=== PATIENT | female | born 1960 | race African-American/Black ===

== ENCOUNTER 2017-08-01 15:34 | Inpatient (IN) | payer OTHER ==
--- NOTE | 2017-08-01 19:48 | HP ---
COWS - Scale Resting Pulse: 0= [place] 80 or Below Sweatin= Chills/Flushing Restless Observation: 3= Extraneous Movement Pupil Size: 0= Normal to Room Light Bone or Joint Aches: 2= Severe Diffuse Aches Runny Nose/ Eye Tearin= Nasal Congestion GI Upset > 30mins: 3= Vomiting/Diarrhea Tremor Observation: 2= Slight Tremor Visible Yawning Observation: 0= None Anxiety or Irritability: 2=Irritable/Anxious Goose Flesh Skin: 0=Smooth Skin COWS Score: 14 CIWA Score - CIWA Score Nausea/Vomitin-Mild Nausea/No Vomiting Muscle Tremors: 4-Moderate,w/Arms Extend Anxiety: 4-Mod. Anxious/Guarded Agitation: 4-Moderately Restless Paroxysmal Sweats: 1-Minimal Palms Moist Orientation: 0-Oriented Tacttile Disturbances: 0-None Auditory Disturbances: 0-None Visual Disturbances: 0-None Headache: 0-None Present CIWA-Ar Total Score: 14 Admission ROS BHS - HPI Chief Complaint: withdrawal sx Allergies/Adverse Reactions: Allergies Allergy/AdvReac Type Severity Reaction Status Date / Time zolpidem tartrate Allergy Difficulty Verified 08/01/17 19:47 [From Ambien] Breathing History of Present Illness: 57 years old female with long history of heroin cocaine alcohol dependence has asthma copd positive ppd hypertension and bipolar ii is admitted to detox Exam Limitations: No Limitations - Ebola screening Have you traveled outside of the country in the last 21 days: No Have you had contact with anyone from an Ebola affected area: No Have you been sick,other than usual withdrawal symptoms: No Do you have a fever: No - Review of Systems Constitutional: Changes in sleep, Weight Stable EENT: reports: Dental Problems (upper + lower) Respiratory: reports: SOB with Exertion, Productive cough (clear) Cardiac: reports: No Symptoms Reported GI: reports: Nausea, Poor Fluid Intake, Vomiting, Abdominal cramping : reports: No Symptoms Reported Musculoskeletal: reports: Back Pain, Joint Pain, Joint Swelling, Muscle Pain, Neck Pain Integumentary: reports: No Symptoms Reported Neuro: reports: Tremors Endocrine: reports: No Symptoms Reported Hematology: reports: No Symptoms Reported Psychiatric: reports: Judgement Intact, Orientated x3, Anxious, Depressed Other Systems: Reviewed and Negative Patient History - Patient Medical History Hx Anemia: No Hx Asthma: Yes Hx Chronic Obstructive Pulmonary Disease (COPD): Yes Hx Cancer: No Hx Cardiac Disorders: No Hx Congestive Heart Failure: No Hx Hypertension: Yes Hx Hypercholesterolemia: Yes Hx Pacemaker: No HX Cerebrovascular Accident: No Hx Seizures: No Hx Dementia: No Hx Diabetes: No Hx Gastrointestinal Disorders: No Hx Liver Disease: No Hx Genitourinary Disorders: No Hx Sexually Transmitted Disorders: No Hx Renal Disease (ESRD): No Hx Thyroid Disease: No Hx Human Immunodeficiency Virus (HIV): No Hx Hepatitis C: No Hx Depression: Yes Hx Suicide Attempt: No Hx Bipolar Disorder: No Hx Schizophrenia: Yes (last dose 01/2017) - Patient Surgical History Past Surgical History: Yes Hx Neurologic Surgery: No Hx Cataract Extraction: No Hx Cardiac Surgery: No Hx Lung Surgery: No Hx Breast Surgery: No Hx Breast Biopsy: No Hx Abdominal Surgery: No Hx Appendectomy: No Hx Cholecystectomy: No Hx Genitourinary Surgery: No Hx Section: No Hx Orthopedic Surgery: No Other Surgical History: Dilatation & Curettage 01/2014 Anesthesia Reaction: No - PPD History Previous Implant?: Yes Documented Results: Positive w/proof Implanted On Prior [facility] Admission?: No PPD to be Administered?: No - Reproductive History Patient is a Female of Child Bearing Age (11 -55 yrs old): Yes Last Menstrual Period: 07/19/09 Patient : No - Smoking Cessation Smoking history: Former smoker Have you smoked in the past 12 months: No Aproximately how many cigarettes per day: 0 If you are a former smoker, when did you quit?: in 2013 Hx Chewing Tobacco Use: No Initiated information on smoking cessation: No - Substance & Tx. History Hx Alcohol Use: Yes Hx Substance Use: Yes Substance Use Type: Alcohol, Cocaine, Heroin Hx Substance Use Treatment: Yes (04/2017) - Substances Abused Alcohol Route: Oral Frequency: Daily Amount used: 3 pints E+ J Age of first use: 18 Date of Last Use: 08/01/17 Heroin Route: Inhalation Frequency: Daily Amount used: 8 bags Age of first use: 42 Date of Last Use: 08/01/17 Family Disease History - Family Disease History Family Disease History: Diabetes: Mother (chf ), Brother (heroin dependencies 2 brothers ), Heart Disease: Mother, [place]: Father ( lungdeceased), Respiratory: Mother, Brother, Other: Brother, Sister (no sister) [facility] - Vital Signs Vital Signs: Vital Signs - 24 hr 08/01/17 17:10 Temperature 97.7 F Pulse Rate 74 Respiratory 18 Rate Blood Pressure 152/83 - Physical General Appearance: Yes: Appropriately Dressed, Mild Distress, Obese, Tremorous , Irritable, Sweating, Anxious HEENTM: Yes: Hearing grossly Normal, Normal ENT Inspection, Normocephalic, Normal Voice Respiratory: Yes: Chest Non-Tender, No Respiratory Distress, No Accessory Muscle Use, Rhonchi, Wheezing, Hyperresonant Neck: Yes: Supple, Trachea in good position Breast: Yes: Breasts Symetrical Cardiology: Yes: Regular Rhythm, Regular Rate, S1, S2 Abdominal: Yes: Non Tender, Soft, Decreased BS Genitourinary: Yes: Within Normal Limits Back: Yes: Normal Inspection Musculoskeletal: Yes: full range of Motion, Gait Steady, Back pain, Muscle Pain Extremities: Yes: Normal Inspection, Normal Range of Motion, Non-Tender, Tremors Neurological: Yes: Fully Oriented, Alert, Motor Strength 5/5, Normal Response, Depressed Affect Integumentary: Yes: Warm Lymphatic: Yes: Within Normal Limits - Diagnostic (1) Alcohol dependence with uncomplicated withdrawal Current Visit: Yes Status: Acute (2) Opioid dependence with withdrawal Current Visit: Yes Status: Acute (3) Schizoaffective disorder, bipolar type Current Visit: Yes Status: Suspected (4) Asthma Current Visit: Yes Status: Chronic Qualifiers: Asthma severity: severe Asthma persistence: persistent Asthma complication type: uncomplicated Qualified Code(s): J45.50 - Severe persistent asthma, uncomplicated Comment: . (5) COPD (chronic obstructive pulmonary disease) with emphysema Current Visit: Yes Status: Chronic Qualifiers: Emphysema type: panlobular Qualified Code(s): J43.1 - Panlobular emphysema Comment: . (6) Nicotine dependence Current Visit: Yes Status: Acute Qualifiers: Nicotine product type: cigarettes Substance use status: in withdrawal Qualified Code(s): F17.213 - Nicotine dependence, cigarettes, with withdrawal Comment: . Cleared for Admission [facility] - [facility]ox or [facility]hab [facility] Level of Care: Medically Managed Detox Regimen/Protocol: Methadone/Librium [facility] Breath Alcohol Content Breath Alcohol Content: 0 Urine Pregancy Test - Result Urine Test Results: Negative- NO Line Present Urine Drug Screen - Results Drug Screen Negative: No Urine Drug Screen Results: MANDEEP-Cocaine, OPI-Opiates
[2017-08-01] MEDS ORDERED: MAGNESIUM HYDROX 2400MG/30ML ORAL SUSPENSION 30 ML CUP PO PRN (20:01)
[2017-08-01] MEDS ORDERED: MAG HYDROX/AL HYDROX/SIMETH 30 ML UNIT-DOSE CUP PO PRN (20:01)
[2017-08-01] MEDS ORDERED: ACETAMINOPHEN 325 MG TABLET (FP) PO PRN (20:01)
[2017-08-01] MEDS ORDERED: P-EPHED 60MG/TRIPROLIDI 2.5MG TABLET PO PRN (20:01)
[2017-08-01] MEDS ORDERED: guaiFENesin/D-METHORPHAN HB 10 ML UNIT-DOSE CUPS PO PRN (20:01)
[2017-08-01] MEDS ORDERED: MAGNESIUM CITRATE 300 ML BOTTLE PO PRN (20:01)
[2017-08-01] MEDS ORDERED: LOPERAMIDE HCL 2 MG CAPSULE PO PRN (20:01)
[2017-08-01] MEDS ORDERED: MENTHOL/PHENOL 1 EACH UD MM PRN (20:01)
[2017-08-01] MEDS ORDERED: chlordiazePOXIDE HCL 25 MG CAPSULE PO PRN (20:01)
[2017-08-01] MEDS ORDERED: IBUPROFEN 400 MG TABLET (FP) PO PRN (20:01)
[2017-08-01] MEDS ORDERED: METHADONE HCL 10 MG TABLET (FOR DETOX USE ONLY) PO ONE ×2 (20:01→23:00)
[2017-08-01] MEDS ORDERED: ALBUTEROL SO4 18 GM HFA INHALER IH PRN (20:02)
[2017-08-01] MEDS ORDERED: ALBUTEROL SO4 2.5/IPRATROPIUM 0.5 INH SOL 3 ML VIAL.NEB. NEB PRN (20:03)
[2017-08-01] MEDS ORDERED: METHADONE HCL 10 MG TABLET (FOR DETOX USE ONLY) ONE (21:05)
[2017-08-01] MEDS: diphenhydrAMINE HCL 50 MG CAPSULE PO SCH (22:09)
[2017-08-01] MEDS: chlordiazePOXIDE HCL 25 MG CAPSULE PO SCH (22:10)
[2017-08-01] MEDS: MONTELUKAST NA 10 MG TABLET PO SCH (22:10)
[2017-08-01] MEDS: THIAMINE HCL 100 MG TABLET (FP) PO SCH (22:10)
[2017-08-01] MEDS: LOSARTAN 50MG/HCTZ 12.5MG 1 TAB (FP) PO SCH (22:11)
[2017-08-01] MEDS: BUDESONIDE/FORMETEROL FUMARATE 80/4.5 mcg INHALER IH SCH (22:13)
[2017-08-01 23:38] LABS: URINE APPEARANCE SLCLOUDY; URINE BILIRUBIN NEGATIVE (NEGATIVE); URINE BLOOD NEGATIVE (NEGATIVE); URINE COLOR YELLOW; URINE GLUCOSE (UA) NEGATIVE (NEGATIVE); URINE KETONE NEGATIVE (NEGATIVE); URINE NITRITE NEGATIVE (NEGATIVE); URINE PROTEIN NEGATIVE (NEGATIVE); URINE UROBILINOGEN NEGATIVE mg/dL (0.2-1.0)
[2017-08-02] MEDS: chlordiazePOXIDE HCL 25 MG CAPSULE PO SCH ×4 (05:08→22:17)
--- NOTE | 2017-08-02 09:39 | PN ---
[facility] CIWA - CIWA Score Nausea/Vomitin Muscle Tremors: 3 Anxiety: 3 Agitation: 3 Paroxysmal Sweats: 1-Minimal Palms Moist Orientation: 0-Oriented Tacttile Disturbances: 1-Very Mild Itch/Numbness Auditory Disturbances: 1-Very Mild Visual Disturbances: 0-None Headache: 2-Mild CIWA-Ar Total Score: 17 [facility]HS COWS - Scale Resting Pulse: 0= [place] 80 or Below Sweatin= Chills/Flushing Restless Observation: 3= Extraneous Movement Pupil Size: 1= Pupils >than Normal Bone or Joint Aches: 2= Severe Diffuse Aches Runny Nose/ Eye Tearin= Runny Nose/Eyes GI Upset > 30mins: 3= Vomiting/Diarrhea Tremor Observation of Outstretched Hands: 2= Slight Tremor Visible Yawning Observation: 1= 1-2x During Session Anxiety or Irritability: 2=Irritable/Anxious Goose Flesh Skin: 0=Smooth Skin COWS Score: 17 [facility] Progress Note (SOAP) Subjective: alert,irritable,anxious,interrupted sleep,pain in the body and back Objective: 08/02/17 09:37 Vital Signs Temperature 97.5 F L 08/02/17 06:00 Pulse Rate 63 08/02/17 06:00 Respiratory Rate 18 08/02/17 06:00 Blood Pressure 155/79 08/02/17 06:00 O2 Sat by Pulse Oximetry (%) 08/02/17 09:38 ekg nsr, Laboratory Last Values Urine Color Yellow 08/01/17 23:20 Urine Appearance Slcloudy 08/01/17 23:20 Urine pH 6.0 (5.0-8.0) 08/01/17 23:20 Ur Specific [place] 1.020 (1.001-1.035) 08/01/17 23:20 Urine Protein Negative (NEGATIVE) 08/01/17 23:20 Urine Glucose (UA) Negative (NEGATIVE) 08/01/17 23:20 Urine Ketones Negative (NEGATIVE) 08/01/17 23:20 Urine Blood Negative (NEGATIVE) 08/01/17 23:20 Urine Nitrite Negative (NEGATIVE) 08/01/17 23:20 Urine Bilirubin Negative (NEGATIVE) 08/01/17 23:20 Urine Urobilinogen Negative mg/dL (0.2-1.0) 08/01/17 23:20 labs pending Assessment: 08/02/17 09:39 withdrawal symptom Plan: continue detox
[2017-08-02 10:00] LABS: MCH 28.2 pg (25.7-33.7); MCHC 32.6 g/dl (32.0-36.0); MEAN CELL VOLUME 86.5 fl (80-96); MEAN PLT VOLUME 9.1 fl (7.5-11.1); PLATELET COUNT 241 K/MM3 (134-434); RDW 15.2 % (11.6-15.6); WHITE BLOOD COUNT 6.1 K/mm3 (4.0-10.0)
[2017-08-02] MEDS ORDERED: METHADONE HCL 10 MG TABLET (FOR DETOX USE ONLY) PO SCH (10:00)
[2017-08-02] MEDS: PRENATAL VITAMINS W/ FOLIC ACID TABLET (FP) PO SCH (10:14)
[2017-08-02] MEDS: LOSARTAN 50MG/HCTZ 12.5MG 1 TAB (FP) PO SCH (10:14)
[2017-08-02] MEDS: TIOTROPIUM BROMIDE 18 MCG/INH (DEVICE W/ 5 CAPSULES) IH SCH (10:16)
[2017-08-02] MEDS: amLODIPine BESYLATE 10 MG TABLET (FP) PO SCH (10:17)
[2017-08-02] MEDS: BUDESONIDE/FORMETEROL FUMARATE 80/4.5 mcg INHALER IH SCH ×2 (10:17→22:16)
[2017-08-02 10:39] LABS: ALBUMIN 3.1 g/dl (3.4-5.0); ALK PHOS 50 U/L (45-117); ANION GAP 10 (8-16); BILIRUBIN,TOTAL 0.6 mg/dL (0.2-1.0); CALCIUM 8.3 mg/dL (8.5-10.1); CO2 26 mmol/L (21-32); CREATININE 0.7 mg/dL (0.55-1.02); GLUCOSE,RANDOM 91 mg/dL (74-106); SGOT/AST 14 U/L (15-37); SGPT/ALT 15 U/L (12-78); TOT PROT 6.3 g/dl (6.4-8.2)
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
[2017-08-02 11:39] LABS: URINE LEUK ESTERASE Negative (NEGATIVE)
[2017-08-02] MEDS: risperiDONE 1 MG TABLET (FP) PO SCH (22:16)
[2017-08-02] MEDS: diphenhydrAMINE HCL 50 MG CAPSULE PO SCH (22:16)
[2017-08-02] MEDS: BENZTROPINE MESYLATE 1 MG TABLET (FP) PO SCH (22:17)
[2017-08-02] MEDS: THIAMINE HCL 100 MG TABLET (FP) PO SCH (22:17)
[2017-08-02] MEDS: MONTELUKAST NA 10 MG TABLET PO SCH (22:17)
[2017-08-03] MEDS: chlordiazePOXIDE HCL 25 MG CAPSULE PO SCH ×3 (05:10→17:41)
--- NOTE | 2017-08-03 09:50 | PN ---
S CIWA - CIWA Score Nausea/Vomitin Muscle Tremors: 3 Anxiety: 2 Agitation: 2 Paroxysmal Sweats: No Perspiration Orientation: 1-Uncertain about Date Tacttile Disturbances: 1-Very Mild Itch/Numbness Auditory Disturbances: 1-Very Mild Visual Disturbances: 0-None Headache: 2-Mild CIWA-Ar Total Score: 15 [facility] COWS - Scale Resting Pulse: 0= [place] 80 or Below Sweatin= Chills/Flushing Restless Observation: 3= Extraneous Movement Pupil Size: 1= Pupils >than Normal Bone or Joint Aches: 2= Severe Diffuse Aches Runny Nose/ Eye Tearin= Nasal Congestion GI Upset > 30mins: 2= Nausea/Diarrhea Tremor Observation of Outstretched Hands: 2= Slight Tremor Visible Yawning Observation: 1= 1-2x During Session Anxiety or Irritability: 2=Irritable/Anxious Goose Flesh Skin: 0=Smooth Skin COWS Score: 15 S Progress Note (SOAP) Subjective: ALERT,IRRITABLE,ANXIOUS,INTERRUPTED SLEEP,TREMOR,PAIN IN THE BODY Objective: 08/03/17 09:48 Vital Signs Temperature 96.1 F L 08/03/17 06:17 Pulse Rate 76 08/03/17 06:17 Respiratory Rate 18 08/03/17 06:17 Blood Pressure 143/76 08/03/17 06:17 O2 Sat by Pulse Oximetry (%) Laboratory Last Values WBC 6.1 K/mm3 (4.0-10.0) 08/02/17 07:00 RBC 4.42 M/mm3 (3.60-5.2) 08/02/17 07:00 Hgb 12.5 GM/dL (10.7-15.3) D 08/02/17 07:00 Hct 38.2 % (32.4-45.2) 08/02/17 07:00 MCV 86.5 fl (80-96) 08/02/17 07:00 MCH 28.2 pg (25.7-33.7) 08/02/17 07:00 MCHC 32.6 g/dl (32.0-36.0) 08/02/17 07:00 RDW 15.2 % (11.6-15.6) D 08/02/17 07:00 Plt Count 241 K/MM3 (134-434) 08/02/17 07:00 MPV 9.1 fl (7.5-11.1) 08/02/17 07:00 Sodium 142 mmol/L (136-145) 08/02/17 07:00 Potassium 3.6 mmol/L (3.5-5.1) 08/02/17 07:00 Chloride 106 mmol/L (98-107) 08/02/17 07:00 Carbon Dioxide 26 mmol/L (21-32) 08/02/17 07:00 Anion Gap 10 (8-16) 08/02/17 07:00 BUN 10 mg/dL (7-18) D 08/02/17 07:00 Creatinine 0.7 mg/dL (0.55-1.02) 08/02/17 07:00 Creat Clearance w eGFR > 60 (>60) 08/02/17 07:00 Random Glucose 91 mg/dL (74-106) 08/02/17 07:00 Calcium 8.3 mg/dL (8.5-10.1) L 08/02/17 07:00 Total Bilirubin 0.6 mg/dL (0.2-1.0) D 08/02/17 07:00 AST 14 U/L (15-37) L D 08/02/17 07:00 ALT 15 U/L (12-78) D 08/02/17 07:00 Alkaline Phosphatase 50 U/L (45-117) D 08/02/17 07:00 Total Protein 6.3 g/dl (6.4-8.2) L 08/02/17 07:00 Albumin 3.1 g/dl (3.4-5.0) L 08/02/17 07:00 Urine Color Yellow 08/01/17 23:20 Urine Appearance Slcloudy 08/01/17 23:20 Urine pH 6.0 (5.0-8.0) 08/01/17 23:20 Ur Specific [place] 1.020 (1.001-1.035) 08/01/17 23:20 Urine Protein Negative (NEGATIVE) 08/01/17 23:20 Urine Glucose (UA) Negative (NEGATIVE) 08/01/17 23:20 Urine Ketones Negative (NEGATIVE) 08/01/17 23:20 Urine Blood Negative (NEGATIVE) 08/01/17 23:20 Urine Nitrite Negative (NEGATIVE) 08/01/17 23:20 Urine Bilirubin Negative (NEGATIVE) 08/01/17 23:20 Urine Urobilinogen Negative mg/dL (0.2-1.0) 08/01/17 23:20 Ur Leukocyte Esterase Negative (NEGATIVE) 08/01/17 23:20 RPR Titer Nonreactive (NONREACTIVE) 08/02/17 07:00 Assessment: 08/03/17 09:49 WITHDRAWAL SYMPTOM Plan: CONTINUE DETOX
[2017-08-03] MEDS: BUDESONIDE/FORMETEROL FUMARATE 80/4.5 mcg INHALER IH SCH ×2 (10:27→22:12)
[2017-08-03] MEDS: METHADONE HCL 5 MG TABLET (FOR DETOX USE ONLY) PO SCH (10:27)
[2017-08-03] MEDS: LOSARTAN 50MG/HCTZ 12.5MG 1 TAB (FP) PO SCH (10:27)
[2017-08-03] MEDS: TIOTROPIUM BROMIDE 18 MCG/INH (DEVICE W/ 5 CAPSULES) IH SCH (10:27)
[2017-08-03] MEDS: amLODIPine BESYLATE 10 MG TABLET (FP) PO SCH (10:28)
[2017-08-03] MEDS: PRENATAL VITAMINS W/ FOLIC ACID TABLET (FP) PO SCH (10:28)
--- NOTE | 2017-08-03 12:17 | EKG ---
Test Reason : Blood Pressure : / mmHG Vent. Rate : 063 BPM Atrial Rate : 063 BPM P-R Int : 156 ms QRS Dur : 096 ms QT Int : 462 ms P-R-T Axes : 058 060 054 degrees QTc Int : 472 ms NORMAL SINUS RHYTHM NORMAL ECG NO PREVIOUS ECGS AVAILABLE Confirmed by ELMA ORELLANA MD ([id number]) on 08/03/2017 12:17:22 PM Referred By: Confirmed By:ELMA ORELLANA MD
[2017-08-03] MEDS: THIAMINE HCL 100 MG TABLET (FP) PO SCH (22:12)
[2017-08-03] MEDS: chlordiazePOXIDE 5 MG CAPSULE PO SCH (22:12)
[2017-08-03] MEDS: risperiDONE 1 MG TABLET (FP) PO SCH (22:12)
[2017-08-03] MEDS: BENZTROPINE MESYLATE 1 MG TABLET (FP) PO SCH (22:13)
[2017-08-03] MEDS: diphenhydrAMINE HCL 50 MG CAPSULE PO SCH (22:13)
[2017-08-03] MEDS: MONTELUKAST NA 10 MG TABLET PO SCH (22:13)
[2017-08-04] MEDS: chlordiazePOXIDE 5 MG CAPSULE PO SCH ×3 (05:18→17:16)
--- NOTE | 2017-08-04 08:38 | PN ---
[facility] Progress Note (SOAP) Subjective: ALERT,IRRITABLE,ANXIOUS,INTERRUPTED SLEEP,PAIN IN THE BODY,BACK,TREMOR Objective: 08/04/17 08:37 Vital Signs Temperature 96.4 F L 08/04/17 06:09 Pulse Rate 80 08/04/17 06:09 Respiratory Rate 18 08/04/17 06:09 Blood Pressure 136/86 08/04/17 06:09 O2 Sat by Pulse Oximetry (%) Assessment: 08/04/17 08:38 WITHDRAWAL SYMPTOM Plan: CONTINUE DETOX
[2017-08-04] MEDS: TIOTROPIUM BROMIDE 18 MCG/INH (DEVICE W/ 5 CAPSULES) IH SCH (10:08)
[2017-08-04] MEDS: BUDESONIDE/FORMETEROL FUMARATE 80/4.5 mcg INHALER IH SCH ×2 (10:09→22:18)
[2017-08-04] MEDS: PRENATAL VITAMINS W/ FOLIC ACID TABLET (FP) PO SCH (10:09)
[2017-08-04] MEDS: amLODIPine BESYLATE 10 MG TABLET (FP) PO SCH (10:09)
[2017-08-04] MEDS: METHADONE HCL 5 MG TABLET (FOR DETOX USE ONLY) PO SCH (10:09)
[2017-08-04] MEDS: LOSARTAN 50MG/HCTZ 12.5MG 1 TAB (FP) PO SCH (10:10)
[2017-08-04] MEDS ORDERED: diphenhydrAMINE HCL 25 MG CAPSULE (FP) PO ONE (21:38)
[2017-08-04] MEDS: diphenhydrAMINE HCL 50 MG CAPSULE PO SCH (22:17)
[2017-08-04] MEDS: risperiDONE 1 MG TABLET (FP) PO SCH (22:17)
[2017-08-04] MEDS: MONTELUKAST NA 10 MG TABLET PO SCH (22:18)
[2017-08-04] MEDS: THIAMINE HCL 100 MG TABLET (FP) PO SCH (22:18)
[2017-08-04] MEDS: BENZTROPINE MESYLATE 1 MG TABLET (FP) PO SCH (22:19)
[2017-08-04] MEDS: chlordiazePOXIDE HCL 10 MG CAPSULE PO SCH (22:19)
[2017-08-05] MEDS: chlordiazePOXIDE HCL 10 MG CAPSULE PO SCH ×3 (05:09→17:18)
--- NOTE | 2017-08-05 09:48 | PN ---
S Progress Note (SOAP) Subjective: alert,irritable,anxious,interrupted sleep Objective: 08/05/17 09:47 Vital Signs Temperature 98.2 F 08/05/17 05:51 Pulse Rate 81 08/05/17 05:51 Respiratory Rate 18 08/05/17 05:51 Blood Pressure 122/69 08/05/17 05:51 O2 Sat by Pulse Oximetry (%) Assessment: 08/05/17 09:47 withdrawal symptom Plan: continue detox,discharge in am
[2017-08-05] MEDS ORDERED: METHADONE HCL 10 MG TABLET (FOR DETOX USE ONLY) PO SCH (10:00)
[2017-08-05] MEDS: amLODIPine BESYLATE 10 MG TABLET (FP) PO SCH (10:13)
[2017-08-05] MEDS: PRENATAL VITAMINS W/ FOLIC ACID TABLET (FP) PO SCH (10:14)
[2017-08-05] MEDS: BUDESONIDE/FORMETEROL FUMARATE 80/4.5 mcg INHALER IH SCH ×2 (10:15→22:14)
[2017-08-05] MEDS: LOSARTAN 50MG/HCTZ 12.5MG 1 TAB (FP) PO SCH (10:15)
[2017-08-05] MEDS: TIOTROPIUM BROMIDE 18 MCG/INH (DEVICE W/ 5 CAPSULES) IH SCH (10:15)
[2017-08-05] MEDS: risperiDONE 1 MG TABLET (FP) PO SCH (22:13)
[2017-08-05] MEDS: MONTELUKAST NA 10 MG TABLET PO SCH (22:13)
[2017-08-05] MEDS: THIAMINE HCL 100 MG TABLET (FP) PO SCH (22:13)
[2017-08-05] MEDS: BENZTROPINE MESYLATE 1 MG TABLET (FP) PO SCH (22:14)
[2017-08-05] MEDS: diphenhydrAMINE HCL 50 MG CAPSULE PO SCH (22:14)
[2017-08-06] MEDS ORDERED: METHADONE HCL 5 MG TABLET (FOR DETOX USE ONLY) PO SCH (06:00)
--- NOTE | 2017-08-06 09:29 | DS ---
[facility] Detox Discharge Summary Admission Date: 08/01/17 Discharge Date: 08/06/17 - History Present History: Alcohol Dependence, Cocaine Dependence, Opioid Dependence Pertinent Past History: Asthma COPD PPD+ - Physical Exam Results Vital Signs: Vital Signs Temperature 97.9 F 08/06/17 06:00 Pulse Rate 81 08/06/17 06:00 Respiratory Rate 18 08/06/17 06:00 Blood Pressure 135/61 08/06/17 06:00 O2 Sat by Pulse Oximetry (%) Pertinent Admission Physical Exam Findings: Withdrawal sx. Vital Signs - 8 hr 08/06/17 06:00 Temperature 97.9 F Pulse Rate 81 Respiratory 18 Rate Blood Pressure 135/61 Laboratory Last Values WBC 6.1 K/mm3 (4.0-10.0) 08/02/17 07:00 RBC 4.42 M/mm3 (3.60-5.2) 08/02/17 07:00 Hgb 12.5 GM/dL (10.7-15.3) D 08/02/17 07:00 Hct 38.2 % (32.4-45.2) 08/02/17 07:00 MCV 86.5 fl (80-96) 08/02/17 07:00 MCH 28.2 pg (25.7-33.7) 08/02/17 07:00 MCHC 32.6 g/dl (32.0-36.0) 08/02/17 07:00 RDW 15.2 % (11.6-15.6) D 08/02/17 07:00 Plt Count 241 K/MM3 (134-434) 08/02/17 07:00 MPV 9.1 fl (7.5-11.1) 08/02/17 07:00 Sodium 142 mmol/L (136-145) 08/02/17 07:00 Potassium 3.6 mmol/L (3.5-5.1) 08/02/17 07:00 Chloride 106 mmol/L (98-107) 08/02/17 07:00 Carbon Dioxide 26 mmol/L (21-32) 08/02/17 07:00 Anion Gap 10 (8-16) 08/02/17 07:00 BUN 10 mg/dL (7-18) D 08/02/17 07:00 Creatinine 0.7 mg/dL (0.55-1.02) 08/02/17 07:00 Creat Clearance w eGFR > 60 (>60) 08/02/17 07:00 Random Glucose 91 mg/dL (74-106) 08/02/17 07:00 Calcium 8.3 mg/dL (8.5-10.1) L 08/02/17 07:00 Total Bilirubin 0.6 mg/dL (0.2-1.0) D 08/02/17 07:00 AST 14 U/L (15-37) L D 08/02/17 07:00 ALT 15 U/L (12-78) D 08/02/17 07:00 Alkaline Phosphatase 50 U/L (45-117) D 08/02/17 07:00 Total Protein 6.3 g/dl (6.4-8.2) L 08/02/17 07:00 Albumin 3.1 g/dl (3.4-5.0) L 08/02/17 07:00 Urine Color Yellow 08/01/17 23:20 Urine Appearance Slcloudy 08/01/17 23:20 Urine pH 6.0 (5.0-8.0) 08/01/17 23:20 Ur Specific [place] 1.020 (1.001-1.035) 08/01/17 23:20 Urine Protein Negative (NEGATIVE) 08/01/17 23:20 Urine Glucose (UA) Negative (NEGATIVE) 08/01/17 23:20 Urine Ketones Negative (NEGATIVE) 08/01/17 23:20 Urine Blood Negative (NEGATIVE) 08/01/17 23:20 Urine Nitrite Negative (NEGATIVE) 08/01/17 23:20 Urine Bilirubin Negative (NEGATIVE) 08/01/17 23:20 Urine Urobilinogen Negative mg/dL (0.2-1.0) 08/01/17 23:20 Ur Leukocyte Esterase Negative (NEGATIVE) 08/01/17 23:20 RPR Titer Nonreactive (NONREACTIVE) 08/02/17 07:00 labs noted - Treatment Hospital Course: Detox Protocol Followed, Detoxed Safely, Responded well, Discharged Condition Good, Rehab Referral Accepted - Medication Discharge Medications: Ambulatory Orders Benztropine Mesylate [Cogentin -] 0.5 mg PO HS #30 tablet 08/02/17 Risperidone [Risperdal] 1 mg PO HS #30 tablet 08/02/17 Amlodipine Besylate [Norvasc -] 10 mg PO DAILY #30 tablet 08/06/17 Budesonide/Formeterol Fumarate [SYMBICORT 80/4.5mcg -] 2 inh IH BID #1 canister 08/06/17 Losartan/Hydrochlorothiazide [Hyzaar 50-12.5 Tablet] 1 each PO DAILY #30 tablet 08/06/17 Montelukast Na [Singulair -] 10 mg PO HS #30 tablet 08/06/17 - Diagnosis (1) Alcohol dependence with uncomplicated withdrawal Current Visit: Yes Status: Acute (2) Cocaine dependence Current Visit: Yes Status: Acute Qualifiers: Substance use status: uncomplicated Qualified Code(s): F14.20 - Cocaine dependence, uncomplicated (3) Nicotine dependence Current Visit: Yes Status: Acute Qualifiers: Nicotine product type: cigarettes Substance use status: in withdrawal Qualified Code(s): F17.213 - Nicotine dependence, cigarettes, with withdrawal (4) Opioid dependence with withdrawal Current Visit: Yes Status: Acute (5) Substance induced mood disorder Current Visit: Yes Status: Acute (6) Asthma Current Visit: Yes Status: Chronic Qualifiers: Asthma severity: moderate Asthma persistence: persistent Asthma complication type: uncomplicated Qualified Code(s): J45.40 - Moderate persistent asthma, uncomplicated (7) COPD (chronic obstructive pulmonary disease) with emphysema Current Visit: Yes Status: Chronic Qualifiers: Emphysema type: panlobular Qualified Code(s): J43.1 - Panlobular emphysema (8) Schizoaffective disorder, bipolar type Current Visit: Yes Status: Suspected (9) PPD positive, treated Current Visit: No Status: Chronic - AMA Did Patient Leave Against Medical Advice: No
[2017-08-06] MEDS: PRENATAL VITAMINS W/ FOLIC ACID TABLET (FP) PO SCH (10:27)
[2017-08-06] MEDS: amLODIPine BESYLATE 10 MG TABLET (FP) PO SCH (10:27)
[2017-08-06] MEDS: TIOTROPIUM BROMIDE 18 MCG/INH (DEVICE W/ 5 CAPSULES) IH SCH (10:28)
[2017-08-06] MEDS: LOSARTAN 50MG/HCTZ 12.5MG 1 TAB (FP) PO SCH (10:29)
[2017-08-06] MEDS: BUDESONIDE/FORMETEROL FUMARATE 80/4.5 mcg INHALER IH SCH (10:29)
[2017-08-06 10:48] VITALS: BP 137/62; PULSE 86; TEMP 97.4
== END 2017-08-06 10:40 | disposition home or self-care (01) | DRG 773 ==
LOC: YASAS 15:34 → Y6N 20:25
PROVIDERS: ADMIT Internal Medicine; ATTEND Internal Medicine
PROC: HZ2ZZZZ Detoxification Services for Substance Abuse Treatment (ICD-10-PCS; principal; 2017-08-01)
DX: F11.23 Opioid dependence with withdrawal (principal); F10.230 Alcohol dependence with withdrawal, uncomplicated; F14.20 Cocaine dependence, uncomplicated; F17.213 Nicotine dependence, cigarettes, with withdrawal; F19.24 Other psychoactive substance dependence with psychoactive substance-induced mood disorder; F25.0 Schizoaffective disorder, bipolar type; I10 Essential (primary) hypertension; J45.40 Moderate persistent asthma, uncomplicated; J43.1 Panlobular emphysema; R76.11 Nonspecific reaction to tuberculin skin test without active tuberculosis
CPT/HCPCS: 36415; 80053; 81003; 85027; 86593; 93005; 93010; J2794

== ENCOUNTER 2018-03-26 16:16 | Inpatient (IN) | payer OTHER ==
[2018-03-26 17:12] VITALS: BMI 27.3
--- NOTE | 2018-03-26 17:21 | HP ---
COWS - Scale Resting Pulse: 0= ND 80 or Below Sweatin= Chills/Flushing Restless Observation: 3= Extraneous Movement Pupil Size: 2= Moderately Dilated Bone or Joint Aches: 2= Severe Diffuse Aches Runny Nose/ Eye Tearin= Runny Nose/Eyes GI Upset > 30mins: 3= Vomiting/Diarrhea Tremor Observation: 2= Slight Tremor Visible Yawning Observation: 2= >3x During Session Anxiety or Irritability: 2=Irritable/Anxious Goose Flesh Skin: 0=Smooth Skin COWS Score: 19 CIWA Score - CIWA Score Nausea/Vomitin Muscle Tremors: 3 Anxiety: 3 Agitation: 2 Paroxysmal Sweats: 1-Minimal Palms Moist Orientation: 0-Oriented Tacttile Disturbances: 2-Mild Itch/Numbness/Burn Auditory Disturbances: 1-Very Mild Visual Disturbances: 0-None Headache: 2-Mild CIWA-Ar Total Score: 17 Admission ROS [facility] - HPI Chief Complaint: i need help to stop using heroin,alcohol and crack Allergies/Adverse Reactions: Allergies Allergy/AdvReac Type Severity Reaction Status Date / Time zolpidem tartrate Allergy Difficulty Verified 08/01/17 19:47 [From Ambien] Breathing History of Present Illness: this 57 years old female with heroin,alcohol and crack dependence,seeking detox, withdrawal symptom,seekig detox,withdrawal symptom, last detox 08/01/17 to 08/06/17 hypertension on med non compliance syncope alcohol related hypercholesterol inhaler asthma,copd positive ppd treated longest period of sobriety 8 years multiple admissions in the past keep relapsing history of schizophrenia Exam Limitations: No Limitations - Ebola screening Have you traveled outside of the country in the last 21 days: No (N) Have you had contact with anyone from an Ebola affected area: No Have you been sick,other than usual withdrawal symptoms: No Do you have a fever: No - Review of Systems Constitutional: Chills, Loss of Appetite, Malaise, Night Sweats, Changes in sleep, Weakness, Unintentional Wgt. Loss EENT: reports: Tearing, Nose Congestion Respiratory: reports: No Symptoms reported, Other (asthma) Cardiac: reports: No Symptoms Reported GI: reports: Diarrhea, Nausea, Vomiting, Abdominal cramping : reports: No Symptoms Reported Musculoskeletal: reports: Back Pain, Joint Pain, Muscle Pain, Joint Stiffness Integumentary: reports: Dryness Neuro: reports: Headache, Tremors Endocrine: reports: No Symptoms Reported Hematology: reports: No Symptoms Reported Psychiatric: reports: Judgement Intact, Mood/Affect Appropiate, Orientated x3, other (shizophrenia,depression) Patient History - Patient Medical History Hx Anemia: No Hx Asthma: Yes (on albuterol inhaler) Hx Chronic Obstructive Pulmonary Disease (COPD): Yes (on spiriva) Hx Cancer: No Hx Cardiac Disorders: No Hx Congestive Heart Failure: No Hx Hypertension: Yes (non compliance) Hx Hypercholesterolemia: Yes (non compliance) Hx Pacemaker: No HX Cerebrovascular Accident: No Hx Seizures: No Hx Dementia: No Hx Diabetes: No Hx Gastrointestinal Disorders: No Hx Liver Disease: No Hx Genitourinary Disorders: No Hx Sexually Transmitted Disorders: No Hx Renal Disease (ESRD): No Hx Thyroid Disease: No Hx Human Immunodeficiency Virus (HIV): No (last 2016 negative) Hx Hepatitis C: No Hx Depression: Yes Hx Suicide Attempt: No Hx Bipolar Disorder: No Hx Schizophrenia: Yes (non compliance) - Patient Surgical History Past Surgical History: Yes Hx Neurologic Surgery: No Hx Cataract Extraction: No Hx Cardiac Surgery: No Hx Lung Surgery: No Hx Breast Surgery: No Hx Breast Biopsy: No Hx Abdominal Surgery: No Hx Appendectomy: No Hx Cholecystectomy: No Hx Genitourinary Surgery: No Hx Section: No Hx Orthopedic Surgery: No Other Surgical History: Dilatation & Curettage 01/2014 Anesthesia Reaction: No - PPD History Previous Implant?: Yes Documented Results: Positive w/o proof Implanted On Prior [facility] Admission?: No PPD to be Administered?: No - Reproductive History Patient is a Female of Child Bearing Age (11 -55 yrs old): No Last Menstrual Period: 07/19/09 Patient : No - Smoking Cessation Smoking history: Former smoker Have you smoked in the past 12 months: No Aproximately how many cigarettes per day: 0 If you are a former smoker, when did you quit?: in 2013 Hx Chewing Tobacco Use: No Initiated information on smoking cessation: Yes 'Breaking Loose' booklet given: 03/26/18 - Substance & Tx. History Hx Alcohol Use: Yes Hx Substance Use: Yes Substance Use Type: Alcohol, Cocaine, Heroin Hx Substance Use Treatment: Yes ([facility] 08/01/17 to 08/06/17) - Substances Abused Heroin Route: Inhalation Frequency: Daily Amount used: 8 bags Age of first use: 42 Date of Last Use: 03/26/18 Alcohol Route: Oral Frequency: Daily Amount used: 1 pint of priscilla/3 of 16 ozs of beer Age of first use: 18 Date of Last Use: 03/25/18 Crack Route: Smoking Frequency: Daily Amount used: 60$ Age of first use: 31 Date of Last Use: 03/26/18 Family Disease History - Family Disease History Family Disease History: Diabetes: Mother (chf ), Brother (heroin dependencies 2 brothers ), Heart Disease: Mother, [place]: Father ( lungdeceased), Respiratory: Mother, Brother, Other: Brother, Sister (no sister) Admission Physical Exam S - Vital Signs Vital Signs: Vital Signs - 24 hr 03/26/18 17:10 Temperature 98.6 F Pulse Rate 71 Respiratory 18 Rate Blood Pressure 119/65 - Physical General Appearance: Yes: Moderate Distress, Tremorous, Irritable, Sweating, Anxious HEENTM: Yes: Normal ENT Inspection, JULISSA, Pharynx Normal Respiratory: Yes: Within Normal Limits, Lungs Clear, Normal Breath Sounds Neck: Yes: Within Normal Limits, Supple, Trachea in good position Breast: Yes: Breast Exam Deferred Cardiology: Yes: Within Normal Limits, Regular Rhythm, Regular Rate, S1, S2 Abdominal: Yes: Within Normal Limits, Normal Bowel Sounds, Non Tender, Soft Genitourinary: Yes: Within Normal Limits Back: Yes: Muscle Spasm Musculoskeletal: Yes: Back pain, Muscle Pain Extremities: Yes: Within Normal Limits, Normal Range of Motion, Tremors Neurological: Yes: process machine operator II-XII NML intact, Fully Oriented, Alert, Motor Strength 5/5 Integumentary: Yes: Dry Lymphatic: Yes: Within Normal Limits - Diagnostic (1) Alcohol dependence with uncomplicated withdrawal Current Visit: No Status: Acute (2) Cocaine dependence Current Visit: No Status: Acute Qualifiers: Substance use status: uncomplicated Qualified Code(s): F14.20 - Cocaine dependence, uncomplicated Comment: . (3) Nicotine dependence Current Visit: No Status: Acute Qualifiers: Nicotine product type: cigarettes Substance use status: in withdrawal Qualified Code(s): F17.213 - Nicotine dependence, cigarettes, with withdrawal Comment: . (4) Opioid dependence with withdrawal Current Visit: No Status: Acute (5) Asthma Current Visit: No Status: Chronic Qualifiers: Asthma severity: moderate Asthma persistence: persistent Asthma complication type: uncomplicated Qualified Code(s): J45.40 - Moderate persistent asthma, uncomplicated Comment: . (6) COPD (chronic obstructive pulmonary disease) with emphysema Current Visit: No Status: Chronic Qualifiers: Emphysema type: panlobular Qualified Code(s): J43.1 - Panlobular emphysema Comment: . (7) PPD positive, treated Current Visit: No Status: Chronic Comment: . (8) Schizoaffective disorder Current Visit: No Status: Chronic Qualifiers: Schizoaffective disorder type: unspecified Qualified Code(s): F25.9 - Schizoaffective disorder, unspecified Comment: As per records.Non compliant with OPD care and medications. Cleared for Admission [facility] - Detox or Rehab [facility] Level of Care: Medically Managed Detox Regimen/Protocol: Methadone/Librium S Breath Alcohol Content Breath Alcohol Content: 0 Urine Pregancy Test - Result Urine Test Results: Negative- NO Line Present Urine Drug Screen - Results Drug Screen Negative: No Urine Drug Screen Results: MANDEEP-Cocaine, OPI-Opiates
[2018-03-26] MEDS ORDERED: P-EPHED 60MG/TRIPROLIDI 2.5MG TABLET PO PRN (17:39)
[2018-03-26] MEDS ORDERED: ACETAMINOPHEN 325 MG TABLET (FP) PO PRN (17:39)
[2018-03-26] MEDS ORDERED: MENTHOL/PHENOL 1 EACH UD MM PRN (17:39)
[2018-03-26] MEDS ORDERED: hydrOXYzine PAMOATE 25 MG CAPSULE (FP) PO PRN (17:39)
[2018-03-26] MEDS ORDERED: guaiFENesin/D-METHORPHAN HB 10 ML UNIT-DOSE CUPS PO PRN (17:39)
[2018-03-26] MEDS ORDERED: IBUPROFEN 400 MG TABLET (FP) PO PRN (17:39)
[2018-03-26] MEDS ORDERED: MAGNESIUM HYDROX 2400MG/30ML ORAL SUSPENSION 30 ML CUP PO PRN (17:39)
[2018-03-26] MEDS ORDERED: MAG HYDROX/AL HYDROX/SIMETH 30 ML UNIT-DOSE CUP PO PRN (17:39)
[2018-03-26] MEDS ORDERED: MAGNESIUM CITRATE 300 ML BOTTLE PO PRN (17:39)
[2018-03-26] MEDS ORDERED: chlordiazePOXIDE HCL 25 MG CAPSULE PO PRN (17:39)
[2018-03-26] MEDS ORDERED: ALBUTEROL SO4 8 GM HFA INHALER IH PRN (17:47)
[2018-03-26] MEDS ORDERED: chlordiazePOXIDE HCL 25 MG CAPSULE PO ONE (18:45)
[2018-03-26] MEDS ORDERED: METHADONE HCL 10 MG TABLET (FOR DETOX USE ONLY) PO ONE ×2 (18:45→23:00)
[2018-03-26 21:43] LABS: URINE APPEARANCE TURBID; URINE BILIRUBIN NEGATIVE (<2.0 mg/dL); URINE COLOR YELLOW; URINE GLUCOSE (UA) NEGATIVE (NEGATIVE); URINE KETONE NEGATIVE (NEGATIVE); URINE LEUK ESTERASE NEGATIVE (NEGATIVE); URINE NITRITE NEGATIVE (NEGATIVE)
[2018-03-26 21:51] LABS: URINE PROTEIN 1+ (NEGATIVE)
[2018-03-26] MEDS ORDERED: MELATONIN 5 MG TABLETS PO PRN (22:00)
[2018-03-26 22:08] LABS: EPI CELLS RARE /HPF (FEW); URINE BACTERIA MODERATE /hpf (NONE SEEN); URINE MUCUS FEW
[2018-03-26] MEDS: THIAMINE HCL 100 MG TABLET (FP) PO SCH (22:45)
[2018-03-26] MEDS: BACITRACIN 0.9 GM PACKET TP SCH (22:45)
[2018-03-26] MEDS: chlordiazePOXIDE HCL 25 MG CAPSULE PO SCH (22:46)
[2018-03-26] MEDS: MONTELUKAST NA 10 MG TABLET PO SCH (22:46)
[2018-03-27] MEDS: chlordiazePOXIDE HCL 25 MG CAPSULE PO SCH ×4 (05:30→22:25)
--- NOTE | 2018-03-27 07:33 | CONSULT ---
[facility] Psychiatric Consult - Data Date of interview: 03/27/18 Admission source: [facility] Identifying data: This is57 years old female, single mother of one, homeless, unemployed, on SSI, with heroin,alcohol and crack dependence,seeking for detox, reporting withdrawal symptoms, with history of. last detox on 08/01/17 to 08/06 Substance Abuse History: Smoking history: Current every day smoker. Have you smoked in the past 12 months: Yes. Aproximately how many cigarettes per day: 5. Cigars Per Day: 0. Hx Chewing Tobacco Use: No. Initiated information on smoking cessation: Yes. 'Breaking Loose' booklet given: 03/26/18. - Substance & Tx. History. Hx Alcohol Use: No. Hx Substance Use: Yes. Substance Use Type : Heroin. Hx Substance Use Treatment: Yes ([facility] 03/18/16 to 03/22/16). - Substances Abused. Heroin. Route: skin pop. Frequency: Daily. Amount used : 4 bags. Age of first use: 14. Date of Last Use: 03/26/18 Medical History: HTN, PPD+ history, Asthma, Psychiatric History: Patient reports to carry Schizophreenia, with most recent psychiatric admission on more then 10 years ago, reports taking prior to admission: Risperdal 1mg po qhs. Cogentine 0,5mg po qhs. Vistaril 25mg po prn q4 fdor anxiety and agitation. Denies suicidal and homicidal history. Physical/Sexual Abuse/Trauma History: Denies Additional Comment: Risperdal 1mg po qhs. Cogentine 0,5mg po qhs. Vistaril 25mg po prn q4 fdor anxiety and agitation. Mental Status Exam - Mental Status Exam Alert and Oriented to: Person Cognitive Function: Fair Patient Appearance: Unkempt Mood: Sad Affect: Mood Congruent Patient Behavior: Talkative Speech Pattern: Delayed Voice Loudness: Mildly Soft/Quiet Thought Process: Circumstantial Thought Disorder: Being Controlled Hallucinations: Denies Suicidal Ideation: Denies Homicidal Ideation: Denies Insight/Judgement: Fair Sleep: Difficulty falling asleep Appetite: Weight gain Muscle strength/Tone: Mild Hypotonicity Gait/Station: Shuffling Additional Comments: Risperdal 1mg po qhs. Cogentine 0,5mg po qhs. Vistaril 25mg po prn q4 fdor anxiety and agitation. Psychiatric Findings - Problem List ([place] 1, 2,3) (1) Alcohol dependence Current Visit: No Status: Acute Comment: . (2) Alcohol dependence with uncomplicated withdrawal Current Visit: No Status: Acute (3) Cocaine dependence Current Visit: No Status: Acute Qualifiers: Substance use status: uncomplicated Qualified Code(s): F14.20 - Cocaine dependence, uncomplicated Comment: . (4) Nicotine dependence Current Visit: No Status: Acute Qualifiers: Nicotine product type: cigarettes Substance use status: in withdrawal Qualified Code(s): F17.213 - Nicotine dependence, cigarettes, with withdrawal Comment: . (5) Opioid dependence Current Visit: No Status: Acute Comment: . (6) Opioid dependence with withdrawal Current Visit: No Status: Acute (7) Shortness of breath Current Visit: No Status: Acute (8) Substance induced mood disorder Current Visit: No Status: Acute (9) Asthma Current Visit: No Status: Chronic Qualifiers: Asthma severity: moderate Asthma persistence: persistent Asthma complication type: uncomplicated Qualified Code(s): J45.40 - Moderate persistent asthma, uncomplicated Comment: . (10) Obesity Current Visit: No Status: Chronic Comment: . (11) Schizoaffective disorder Current Visit: No Status: Chronic Qualifiers: Schizoaffective disorder type: unspecified Qualified Code(s): F25.9 - Schizoaffective disorder, unspecified Comment: As per records.Non compliant with OPD care and medications. (12) Schizoaffective disorder, bipolar type Current Visit: No Status: Suspected - Initial Treatment Plan Initial Treatment Plan: Risperdal 1mg po qhs. Cogentine 0,5mg po qhs. Vistaril 25mg po prn q4 fdor anxiety and agitation.
[2018-03-27 09:46] LABS: HEMATOCRIT 39.9 % (32.4-45.2); HEMOGLOBIN 13.2 GM/dL (10.7-15.3); MCHC 33.2 g/dl (32.0-36.0); MEAN CELL VOLUME 87.4 fl (80-96); MEAN PLT VOLUME 9.4 fl (7.5-11.1); PLATELET COUNT 190 K/MM3 (134-434); RBC 4.56 M/mm3 (3.60-5.2); WHITE BLOOD COUNT 5.8 K/mm3 (4.0-10.0)
[2018-03-27] MEDS ORDERED: METHADONE HCL 10 MG TABLET (FOR DETOX USE ONLY) PO SCH (10:00)
[2018-03-27] MEDS: LOSARTAN 50MG/HCTZ 12.5MG 1 TAB (FP) PO SCH (10:24)
[2018-03-27] MEDS: PRENATAL VITAMINS W/ FOLIC ACID TABLET (FP) PO SCH (10:24)
[2018-03-27] MEDS: BACITRACIN 0.9 GM PACKET TP SCH ×2 (10:24→22:27)
[2018-03-27] MEDS: amLODIPine BESYLATE 10 MG TABLET (FP) PO SCH (10:24)
[2018-03-27] MEDS: TIOTROPIUM BROMIDE 18 MCG CAPSULES IH SCH (10:24)
--- NOTE | 2018-03-27 10:51 | PN ---
[facility] CIWA - CIWA Score Nausea/Vomitin-Mild Nausea/No Vomiting Muscle Tremors: 4-Moderate,w/Arms Extend Anxiety: 4-Mod. Anxious/Guarded Agitation: 4-Moderately Restless Paroxysmal Sweats: 1-Minimal Palms Moist Orientation: 0-Oriented Tacttile Disturbances: 2-Mild Itch/Numbness/Burn Auditory Disturbances: 0-None Visual Disturbances: 0-None Headache: 0-None Present CIWA-Ar Total Score: 16 S COWS - Scale Resting Pulse: 0= [place] 80 or Below Sweatin= Chills/Flushing Restless Observation: 1= Difficult to Sit Still Pupil Size: 0= Normal to Room Light Bone or Joint Aches: 2= Severe Diffuse Aches Runny Nose/ Eye Tearin= Runny Nose/Eyes GI Upset > 30mins: 2= Nausea/Diarrhea Tremor Observation of Outstretched Hands: 2= Slight Tremor Visible Yawning Observation: 1= 1-2x During Session Anxiety or Irritability: 2=Irritable/Anxious Goose Flesh Skin: 3=Piloerection COWS Score: 16 [facility] Progress Note (SOAP) Subjective: joint pain body ache tremor sweat hot cold chill Objective: 03/27/18 10:53 Vital Signs Temperature 96 F L 03/27/18 09:24 Pulse Rate 70 03/27/18 09:24 Respiratory Rate 18 03/27/18 09:24 Blood Pressure 127/77 03/27/18 09:24 O2 Sat by Pulse Oximetry (%) Laboratory Last Values WBC 5.8 K/mm3 (4.0-10.0) 03/27/18 07:00 RBC 4.56 M/mm3 (3.60-5.2) 03/27/18 07:00 Hgb 13.2 GM/dL (10.7-15.3) 03/27/18 07:00 Hct 39.9 % (32.4-45.2) 03/27/18 07:00 MCV 87.4 fl (80-96) 03/27/18 07:00 MCH 29.0 pg (25.7-33.7) 03/27/18 07:00 MCHC 33.2 g/dl (32.0-36.0) 03/27/18 07:00 RDW 15.0 % (11.6-15.6) 03/27/18 07:00 Plt Count 190 K/MM3 (134-434) D 03/27/18 07:00 MPV 9.4 fl (7.5-11.1) 03/27/18 07:00 Urine Color Yellow 03/26/18 17:59 Urine Appearance Turbid 03/26/18 17:59 Urine pH 5.0 (5.0-8.0) 03/26/18 17:59 Ur Specific [place] 1.030 (1.001-1.035) 03/26/18 17:59 Urine Protein 1+ (NEGATIVE) H 03/26/18 17:59 Urine Glucose (UA) Negative (NEGATIVE) 03/26/18 17:59 Urine Ketones Negative (NEGATIVE) 03/26/18 17:59 Urine Blood Negative (NEGATIVE) 03/26/18 17:59 Urine Nitrite Negative (NEGATIVE) 03/26/18 17:59 Urine Bilirubin Negative (<2.0 mg/dL) 03/26/18 17:59 Urine Urobilinogen 2.0 mg/dL (0.2-1.0) H 03/26/18 17:59 Ur Leukocyte Esterase Negative (NEGATIVE) 03/26/18 17:59 Urine WBC (Auto) 48 /hpf (3-5) 03/26/18 17:59 Urine RBC (Auto) None /hpf (0-3) 03/26/18 17:59 Ur Epithelial Cells Rare /HPF (FEW) 03/26/18 17:59 Urine Bacteria Moderate /hpf (NONE SEEN) 03/26/18 17:59 Urine Mucus Few 03/26/18 17:59 lab noted repeat ua Assessment: 03/27/18 10:55 withdrawal sx Plan: continue detox
[2018-03-27 11:11] LABS: CHLORIDE 105 mmol/L (98-107); POTASSIUM 3.3 mmol/L (3.5-5.1); SODIUM 142 mmol/L (136-145)
[2018-03-27 11:16] LABS: ALBUMIN 3.2 g/dl (3.4-5.0); ALK PHOS 58 U/L (45-117); ANION GAP 9 (8-16); BILIRUBIN,TOTAL 0.3 mg/dL (0.2-1.0); BLOOD UREA NITROGEN 11 mg/dL (7-18); CALCIUM 8.3 mg/dL (8.5-10.1); CO2 28 mmol/L (21-32); CREATININE 0.8 mg/dL (0.55-1.02); GLUCOSE,RANDOM 109 mg/dL (74-106); SGOT/AST 11 U/L (15-37); SGPT/ALT 14 U/L (12-78); TOT PROT 6.5 g/dl (6.4-8.2)
[2018-03-27 14:54] LABS: URINE APPEARANCE CLEAR; URINE BILIRUBIN NEGATIVE (<2.0 mg/dL); URINE COLOR YELLOW; URINE GLUCOSE (UA) NEGATIVE (NEGATIVE); URINE KETONE NEGATIVE (NEGATIVE); URINE LEUK ESTERASE NEGATIVE (NEGATIVE); URINE NITRITE NEGATIVE (NEGATIVE); URINE PROTEIN NEGATIVE (NEGATIVE); URINE UROBILINOGEN 4.0 E.U/dl mg/dL (0.2-1.0)
--- NOTE | 2018-03-27 15:08 | EKG ---
Test Reason : Blood Pressure : / mmHG Vent. Rate : 066 BPM Atrial Rate : 066 BPM P-R Int : 152 ms QRS Dur : 088 ms QT Int : 430 ms P-R-T Axes : 060 058 061 degrees QTc Int : 450 ms NORMAL SINUS RHYTHM WITH SINUS ARRHYTHMIA NORMAL ECG WHEN COMPARED WITH ECG OF 01-AUG-2017 21:25, NO SIGNIFICANT CHANGE WAS FOUND Confirmed by POLO MCNEAL MD ([id number]) on 03/27/2018 3:07:42 PM Referred By: Confirmed By:POLO MCNEAL MD
[2018-03-27] MEDS: POTASSIUM CHLORIDE ORAL LIQUID 20 MEQ/15 ML PO SCH (17:06)
[2018-03-27] MEDS: THIAMINE HCL 100 MG TABLET (FP) PO SCH (22:24)
[2018-03-27] MEDS: BENZTROPINE MESYLATE 1 MG TABLET (FP) PO SCH (22:25)
[2018-03-27] MEDS: MONTELUKAST NA 10 MG TABLET PO SCH (22:25)
[2018-03-27] MEDS: risperiDONE 1 MG TABLET (FP) PO SCH (22:25)
[2018-03-28] MEDS: chlordiazePOXIDE HCL 25 MG CAPSULE PO SCH ×3 (05:22→17:17)
[2018-03-28] MEDS: PRENATAL VITAMINS W/ FOLIC ACID TABLET (FP) PO SCH (10:29)
[2018-03-28] MEDS: TIOTROPIUM BROMIDE 18 MCG CAPSULES IH SCH (10:29)
[2018-03-28] MEDS: BACITRACIN 0.9 GM PACKET TP SCH ×2 (10:30→22:22)
[2018-03-28] MEDS: METHADONE HCL 5 MG TABLET (FOR DETOX USE ONLY) PO SCH (10:30)
[2018-03-28] MEDS: LOSARTAN 50MG/HCTZ 12.5MG 1 TAB (FP) PO SCH (10:30)
[2018-03-28] MEDS: amLODIPine BESYLATE 10 MG TABLET (FP) PO SCH (10:30)
[2018-03-28] MEDS: POTASSIUM CHLORIDE ORAL LIQUID 20 MEQ/15 ML PO SCH (11:22)
--- NOTE | 2018-03-28 11:42 | PN ---
[facility] CIWA - CIWA Score Nausea/Vomitin-Mild Nausea/No Vomiting Muscle Tremors: 4-Moderate,w/Arms Extend Anxiety: 4-Mod. Anxious/Guarded Agitation: 4-Moderately Restless Paroxysmal Sweats: 1-Minimal Palms Moist Orientation: 0-Oriented Tacttile Disturbances: 1-Very Mild Itch/Numbness Auditory Disturbances: 0-None Visual Disturbances: 0-None Headache: 0-None Present CIWA-Ar Total Score: 15 S COWS - Scale Resting Pulse: 0= RI 80 or Below Sweatin= Chills/Flushing Restless Observation: 1= Difficult to Sit Still Pupil Size: 1= Pupils >than Normal Bone or Joint Aches: 2= Severe Diffuse Aches Runny Nose/ Eye Tearin= Runny Nose/Eyes GI Upset > 30mins: 2= Nausea/Diarrhea Tremor Observation of Outstretched Hands: 2= Slight Tremor Visible Yawning Observation: 2= >3x During Session Anxiety or Irritability: 2=Irritable/Anxious Goose Flesh Skin: 0=Smooth Skin COWS Score: 15 [facility] Progress Note (SOAP) Subjective: body ache restlessness sweat tremor irritable trouble sleep at night Objective: 03/28/18 11:40 Vital Signs Temperature 97.3 F L 03/28/18 09:32 Pulse Rate 85 03/28/18 09:32 Respiratory Rate 18 03/28/18 09:32 Blood Pressure 106/59 03/28/18 09:32 O2 Sat by Pulse Oximetry (%) Laboratory Last Values WBC 5.8 K/mm3 (4.0-10.0) 03/27/18 07:00 RBC 4.56 M/mm3 (3.60-5.2) 03/27/18 07:00 Hgb 13.2 GM/dL (10.7-15.3) 03/27/18 07:00 Hct 39.9 % (32.4-45.2) 03/27/18 07:00 MCV 87.4 fl (80-96) 03/27/18 07:00 MCH 29.0 pg (25.7-33.7) 03/27/18 07:00 MCHC 33.2 g/dl (32.0-36.0) 03/27/18 07:00 RDW 15.0 % (11.6-15.6) 03/27/18 07:00 Plt Count 190 K/MM3 (134-434) D 03/27/18 07:00 MPV 9.4 fl (7.5-11.1) 03/27/18 07:00 Sodium 142 mmol/L (136-145) 03/27/18 07:00 Potassium 3.3 mmol/L (3.5-5.1) L 03/27/18 07:00 Chloride 105 mmol/L (98-107) 03/27/18 07:00 Carbon Dioxide 28 mmol/L (21-32) 03/27/18 07:00 Anion Gap 9 (8-16) 03/27/18 07:00 BUN 11 mg/dL (7-18) 03/27/18 07:00 Creatinine 0.8 mg/dL (0.55-1.02) 03/27/18 07:00 Creat Clearance w eGFR > 60 (>60) 03/27/18 07:00 Random Glucose 109 mg/dL (74-106) H 03/27/18 07:00 Calcium 8.3 mg/dL (8.5-10.1) L 03/27/18 07:00 Total Bilirubin 0.3 mg/dL (0.2-1.0) 03/27/18 07:00 AST 11 U/L (15-37) L 03/27/18 07:00 ALT 14 U/L (12-78) 03/27/18 07:00 Alkaline Phosphatase 58 U/L (45-117) 03/27/18 07:00 Total Protein 6.5 g/dl (6.4-8.2) 03/27/18 07:00 Albumin 3.2 g/dl (3.4-5.0) L 03/27/18 07:00 Urine Color Yellow 03/27/18 13:10 Urine Appearance Clear 03/27/18 13:10 Urine pH 6.0 (5.0-8.0) 03/27/18 13:10 Ur Specific [place] 1.018 (1.001-1.035) 03/27/18 13:10 Urine Protein Negative (NEGATIVE) 03/27/18 13:10 Urine Glucose (UA) Negative (NEGATIVE) 03/27/18 13:10 Urine Ketones Negative (NEGATIVE) 03/27/18 13:10 Urine Blood Negative (NEGATIVE) 03/27/18 13:10 Urine Nitrite Negative (NEGATIVE) 03/27/18 13:10 Urine Bilirubin Negative (<2.0 mg/dL) 03/27/18 13:10 Urine Urobilinogen 4.0 e.u/dl mg/dL (0.2-1.0) H 03/27/18 13:10 Ur Leukocyte Esterase Negative (NEGATIVE) 03/27/18 13:10 Urine WBC (Auto) 48 /hpf (3-5) 03/26/18 17:59 Urine RBC (Auto) None /hpf (0-3) 03/26/18 17:59 Ur Epithelial Cells Rare /HPF (FEW) 03/26/18 17:59 Urine Bacteria Moderate /hpf (NONE SEEN) 03/26/18 17:59 Urine Mucus Few 03/26/18 17:59 lab noted Assessment: 03/28/18 11:42 withdrawal sx Plan: continue detox
[2018-03-28] MEDS: chlordiazePOXIDE 5 MG CAPSULE PO SCH (22:22)
[2018-03-28] MEDS: BENZTROPINE MESYLATE 1 MG TABLET (FP) PO SCH (22:23)
[2018-03-28] MEDS: THIAMINE HCL 100 MG TABLET (FP) PO SCH (22:23)
[2018-03-28] MEDS: risperiDONE 1 MG TABLET (FP) PO SCH (22:23)
[2018-03-28] MEDS: MONTELUKAST NA 10 MG TABLET PO SCH (22:23)
[2018-03-29] MEDS: chlordiazePOXIDE 5 MG CAPSULE PO SCH ×3 (06:13→16:42)
[2018-03-29] MEDS: TIOTROPIUM BROMIDE 18 MCG CAPSULES IH SCH (10:19)
[2018-03-29] MEDS: BACITRACIN 0.9 GM PACKET TP SCH ×2 (10:19→22:36)
[2018-03-29] MEDS: PRENATAL VITAMINS W/ FOLIC ACID TABLET (FP) PO SCH (10:19)
[2018-03-29] MEDS: amLODIPine BESYLATE 10 MG TABLET (FP) PO SCH (10:19)
[2018-03-29] MEDS: POTASSIUM CHLORIDE ORAL LIQUID 20 MEQ/15 ML PO SCH (10:20)
[2018-03-29] MEDS: LOSARTAN 50MG/HCTZ 12.5MG 1 TAB (FP) PO SCH (10:20)
[2018-03-29] MEDS: METHADONE HCL 5 MG TABLET (FOR DETOX USE ONLY) PO SCH (10:21)
--- NOTE | 2018-03-29 10:38 | PN ---
[facility] Progress Note (SOAP) Subjective: body ache anxiety sweat tremor irritable restlessness Objective: 03/29/18 10:37 Vital Signs Temperature 98.2 F 03/29/18 07:52 Pulse Rate 88 03/29/18 07:52 Respiratory Rate 20 03/29/18 07:52 Blood Pressure 141/78 03/29/18 07:52 O2 Sat by Pulse Oximetry (%) Laboratory Last Values WBC 5.8 K/mm3 (4.0-10.0) 03/27/18 07:00 RBC 4.56 M/mm3 (3.60-5.2) 03/27/18 07:00 Hgb 13.2 GM/dL (10.7-15.3) 03/27/18 07:00 Hct 39.9 % (32.4-45.2) 03/27/18 07:00 MCV 87.4 fl (80-96) 03/27/18 07:00 MCH 29.0 pg (25.7-33.7) 03/27/18 07:00 MCHC 33.2 g/dl (32.0-36.0) 03/27/18 07:00 RDW 15.0 % (11.6-15.6) 03/27/18 07:00 Plt Count 190 K/MM3 (134-434) D 03/27/18 07:00 MPV 9.4 fl (7.5-11.1) 03/27/18 07:00 Sodium 142 mmol/L (136-145) 03/27/18 07:00 Potassium 3.3 mmol/L (3.5-5.1) L 03/27/18 07:00 Chloride 105 mmol/L (98-107) 03/27/18 07:00 Carbon Dioxide 28 mmol/L (21-32) 03/27/18 07:00 Anion Gap 9 (8-16) 03/27/18 07:00 BUN 11 mg/dL (7-18) 03/27/18 07:00 Creatinine 0.8 mg/dL (0.55-1.02) 03/27/18 07:00 Creat Clearance w eGFR > 60 (>60) 03/27/18 07:00 Random Glucose 109 mg/dL (74-106) H 03/27/18 07:00 Calcium 8.3 mg/dL (8.5-10.1) L 03/27/18 07:00 Total Bilirubin 0.3 mg/dL (0.2-1.0) 03/27/18 07:00 AST 11 U/L (15-37) L 03/27/18 07:00 ALT 14 U/L (12-78) 03/27/18 07:00 Alkaline Phosphatase 58 U/L (45-117) 03/27/18 07:00 Total Protein 6.5 g/dl (6.4-8.2) 03/27/18 07:00 Albumin 3.2 g/dl (3.4-5.0) L 03/27/18 07:00 Urine Color Yellow 03/27/18 13:10 Urine Appearance Clear 03/27/18 13:10 Urine pH 6.0 (5.0-8.0) 03/27/18 13:10 Ur Specific [place] 1.018 (1.001-1.035) 03/27/18 13:10 Urine Protein Negative (NEGATIVE) 03/27/18 13:10 Urine Glucose (UA) Negative (NEGATIVE) 03/27/18 13:10 Urine Ketones Negative (NEGATIVE) 03/27/18 13:10 Urine Blood Negative (NEGATIVE) 03/27/18 13:10 Urine Nitrite Negative (NEGATIVE) 03/27/18 13:10 Urine Bilirubin Negative (<2.0 mg/dL) 03/27/18 13:10 Urine Urobilinogen 4.0 e.u/dl mg/dL (0.2-1.0) H 03/27/18 13:10 Ur Leukocyte Esterase Negative (NEGATIVE) 03/27/18 13:10 Urine WBC (Auto) 48 /hpf (3-5) 03/26/18 17:59 Urine RBC (Auto) None /hpf (0-3) 03/26/18 17:59 Ur Epithelial Cells Rare /HPF (FEW) 03/26/18 17:59 Urine Bacteria Moderate /hpf (NONE SEEN) 03/26/18 17:59 Urine Mucus Few 03/26/18 17:59 laab noted continue K+ supplement repeat K+ 03/29/18 10:37 Assessment: 03/29/18 10:38 withdrawal sx low K+ serum level Plan: continue detox continue K+ supplement repeat K+
[2018-03-29] MEDS: LOPERAMIDE HCL 2 MG CAPSULE PO PRN ×2 (12:54→20:01)
[2018-03-29] MEDS: BENZTROPINE MESYLATE 1 MG TABLET (FP) PO SCH (22:35)
[2018-03-29] MEDS: MONTELUKAST NA 10 MG TABLET PO SCH (22:35)
[2018-03-29] MEDS: risperiDONE 1 MG TABLET (FP) PO SCH (22:35)
[2018-03-29] MEDS: THIAMINE HCL 100 MG TABLET (FP) PO SCH (22:35)
[2018-03-29] MEDS: chlordiazePOXIDE HCL 10 MG CAPSULE PO SCH (23:03)
[2018-03-30] MEDS: chlordiazePOXIDE HCL 10 MG CAPSULE PO SCH ×3 (05:10→17:09)
[2018-03-30] MEDS: LOPERAMIDE HCL 2 MG CAPSULE PO PRN ×2 (05:10→12:57)
--- NOTE | 2018-03-30 09:39 | PN ---
[facility] Progress Note (SOAP) Subjective: feeling better no tremor less sweat social with peers in day room discuss aftercare Objective: 03/30/18 09:37 Vital Signs Temperature 98.2 F 03/30/18 07:49 Pulse Rate 80 03/30/18 07:49 Respiratory Rate 18 03/30/18 07:49 Blood Pressure 118/62 03/30/18 07:49 O2 Sat by Pulse Oximetry (%) Laboratory Last Values WBC 5.8 K/mm3 (4.0-10.0) 03/27/18 07:00 RBC 4.56 M/mm3 (3.60-5.2) 03/27/18 07:00 Hgb 13.2 GM/dL (10.7-15.3) 03/27/18 07:00 Hct 39.9 % (32.4-45.2) 03/27/18 07:00 MCV 87.4 fl (80-96) 03/27/18 07:00 MCH 29.0 pg (25.7-33.7) 03/27/18 07:00 MCHC 33.2 g/dl (32.0-36.0) 03/27/18 07:00 RDW 15.0 % (11.6-15.6) 03/27/18 07:00 Plt Count 190 K/MM3 (134-434) D 03/27/18 07:00 MPV 9.4 fl (7.5-11.1) 03/27/18 07:00 Sodium 142 mmol/L (136-145) 03/27/18 07:00 Potassium 3.3 mmol/L (3.5-5.1) L 03/27/18 07:00 Chloride 105 mmol/L (98-107) 03/27/18 07:00 Carbon Dioxide 28 mmol/L (21-32) 03/27/18 07:00 Anion Gap 9 (8-16) 03/27/18 07:00 BUN 11 mg/dL (7-18) 03/27/18 07:00 Creatinine 0.8 mg/dL (0.55-1.02) 03/27/18 07:00 Creat Clearance w eGFR > 60 (>60) 03/27/18 07:00 Random Glucose 109 mg/dL (74-106) H 03/27/18 07:00 Calcium 8.3 mg/dL (8.5-10.1) L 03/27/18 07:00 Total Bilirubin 0.3 mg/dL (0.2-1.0) 03/27/18 07:00 AST 11 U/L (15-37) L 03/27/18 07:00 ALT 14 U/L (12-78) 03/27/18 07:00 Alkaline Phosphatase 58 U/L (45-117) 03/27/18 07:00 Ammonia 33.91 umol/L (11-32) H 03/29/18 15:15 Total Protein 6.5 g/dl (6.4-8.2) 03/27/18 07:00 Albumin 3.2 g/dl (3.4-5.0) L 03/27/18 07:00 Urine Color Yellow 03/27/18 13:10 Urine Appearance Clear 03/27/18 13:10 Urine pH 6.0 (5.0-8.0) 03/27/18 13:10 Ur Specific [place] 1.018 (1.001-1.035) 03/27/18 13:10 Urine Protein Negative (NEGATIVE) 03/27/18 13:10 Urine Glucose (UA) Negative (NEGATIVE) 03/27/18 13:10 Urine Ketones Negative (NEGATIVE) 03/27/18 13:10 Urine Blood Negative (NEGATIVE) 03/27/18 13:10 Urine Nitrite Negative (NEGATIVE) 03/27/18 13:10 Urine Bilirubin Negative (<2.0 mg/dL) 03/27/18 13:10 Urine Urobilinogen 4.0 e.u/dl mg/dL (0.2-1.0) H 03/27/18 13:10 Ur Leukocyte Esterase Negative (NEGATIVE) 03/27/18 13:10 Urine WBC (Auto) 48 /hpf (3-5) 03/26/18 17:59 Urine RBC (Auto) None /hpf (0-3) 03/26/18 17:59 Ur Epithelial Cells Rare /HPF (FEW) 03/26/18 17:59 Urine Bacteria Moderate /hpf (NONE SEEN) 03/26/18 17:59 Urine Mucus Few 03/26/18 17:59 RPR Titer Nonreactive (NONREACTIVE) 03/27/18 07:00 K+ pending lab noted 03/30/18 09:38 Assessment: 03/30/18 09:38 mild withdrawal sx Plan: medically supervised detox
[2018-03-30] MEDS ORDERED: METHADONE HCL 10 MG TABLET (FOR DETOX USE ONLY) PO SCH (10:00)
[2018-03-30] MEDS: BACITRACIN 0.9 GM PACKET TP SCH ×2 (10:35→22:57)
[2018-03-30] MEDS: TIOTROPIUM BROMIDE 18 MCG CAPSULES IH SCH (10:35)
[2018-03-30] MEDS: PRENATAL VITAMINS W/ FOLIC ACID TABLET (FP) PO SCH (10:35)
[2018-03-30] MEDS: POTASSIUM CHLORIDE ORAL LIQUID 20 MEQ/15 ML PO SCH (10:36)
[2018-03-30] MEDS: amLODIPine BESYLATE 10 MG TABLET (FP) PO SCH (10:36)
[2018-03-30] MEDS: LOSARTAN 50MG/HCTZ 12.5MG 1 TAB (FP) PO SCH (10:36)
[2018-03-30] MEDS: MONTELUKAST NA 10 MG TABLET PO SCH (22:39)
[2018-03-30] MEDS: THIAMINE HCL 100 MG TABLET (FP) PO SCH (22:39)
[2018-03-30] MEDS: BENZTROPINE MESYLATE 1 MG TABLET (FP) PO SCH (22:39)
[2018-03-30] MEDS: risperiDONE 1 MG TABLET (FP) PO SCH (22:39)
[2018-03-31] MEDS ORDERED: METHADONE HCL 5 MG TABLET (FOR DETOX USE ONLY) PO SCH (06:00)
--- NOTE | 2018-03-31 07:59 | DS ---
[facility] Detox Discharge Summary Admission Date: 03/26/18 - History Present History: Alcohol Dependence, Cocaine Dependence, Opioid Dependence Additional Comments: Patient currently stable, Patient to follow up with Primary Care Provider upon discharge. Pertinent Past History: HTN COPD - Physical Exam Results Vital Signs: Vital Signs Temperature 98.2 F 03/31/18 07:46 Pulse Rate 77 03/31/18 07:46 Respiratory Rate 18 03/31/18 07:46 Blood Pressure 128/76 03/31/18 07:46 O2 Sat by Pulse Oximetry (%) - Treatment Hospital Course: Detox Protocol Followed, Detoxed Safely, Responded well, Discharged Condition Good, Rehab Referral Accepted Patient has Accepted a Rehab Referral to: [facility] - Medication Discharge Medications: Ambulatory Orders Benztropine Mesylate [Cogentin -] 0.5 mg PO HS #30 tablet 03/27/18 Risperidone [Risperdal -] 1 mg PO HS #30 tablet 03/27/18 hydrOXYzine PAMOATE [Vistaril -] 25 mg PO Q4H PRN #60 capsule 03/27/18 Albuterol Sulfate Inhaler - [Ventolin HFA Inhaler -] 2 puff IH Q4H PRN #1 inhaler 03/30/18 Amlodipine Besylate [Norvasc -] 10 mg PO DAILY #14 tablet 03/30/18 Budesonide/Formeterol Fumarate [SYMBICORT 80/4.5mcg -] 2 inh IH BID #1 canister 03/30/18 Losartan/Hydrochlorothiazide [Hyzaar 50-12.5 Tablet] 1 each PO DAILY #14 tablet 03/30/18 Montelukast Na [Singulair -] 10 mg PO HS #30 tablet 03/30/18 Tiotropium [place] [Spiriva] 1 puff IH DAILY #1 cap 03/30/18 - Diagnosis (1) Alcohol dependence with uncomplicated withdrawal Current Visit: Yes Status: Acute (2) Cocaine dependence Current Visit: Yes Status: Acute Qualifiers: Substance use status: uncomplicated Qualified Code(s): F14.20 - Cocaine dependence, uncomplicated (3) Nicotine dependence Current Visit: Yes Status: Acute Qualifiers: Nicotine product type: cigarettes Substance use status: in withdrawal Qualified Code(s): F17.213 - Nicotine dependence, cigarettes, with withdrawal (4) Opioid dependence with withdrawal Current Visit: Yes Status: Acute (5) COPD (chronic obstructive pulmonary disease) with emphysema Current Visit: Yes Status: Chronic Qualifiers: Emphysema type: panlobular Qualified Code(s): J43.1 - Panlobular emphysema - AMA Did Patient Leave Against Medical Advice: No
[2018-03-31 10:27] VITALS: BP 135/78; PULSE 78; TEMP 97.7
[2018-03-31] MEDS: BACITRACIN 0.9 GM PACKET TP SCH (10:49)
[2018-03-31] MEDS: PRENATAL VITAMINS W/ FOLIC ACID TABLET (FP) PO SCH (10:49)
[2018-03-31] MEDS: amLODIPine BESYLATE 10 MG TABLET (FP) PO SCH (10:49)
[2018-03-31] MEDS: TIOTROPIUM BROMIDE 18 MCG CAPSULES IH SCH (10:49)
[2018-03-31] MEDS: LOSARTAN 50MG/HCTZ 12.5MG 1 TAB (FP) PO SCH (10:49)
[2018-03-31] MEDS: POTASSIUM CHLORIDE ORAL LIQUID 20 MEQ/15 ML PO SCH (10:51)
== END 2018-03-31 10:53 | disposition other institution (70) | DRG 773 ==
LOC: YASAS 16:16 → Y6N 18:32
PROVIDERS: ADMIT Surgery; ATTEND Surgery
PROC: HZ2ZZZZ Detoxification Services for Substance Abuse Treatment (ICD-10-PCS; principal; 2018-03-26)
DX: F11.23 Opioid dependence with withdrawal (principal); F10.230 Alcohol dependence with withdrawal, uncomplicated; F14.20 Cocaine dependence, uncomplicated; F17.213 Nicotine dependence, cigarettes, with withdrawal; F19.24 Other psychoactive substance dependence with psychoactive substance-induced mood disorder; F25.0 Schizoaffective disorder, bipolar type; I10 Essential (primary) hypertension; J43.1 Panlobular emphysema; J45.40 Moderate persistent asthma, uncomplicated; R06.02 Shortness of breath
CPT/HCPCS: 36415; 71045-TC-FY; 80053; 81003; 81015; 82140; 84132; 85027; 86593; 87389; 93005; 93010; J2794

== ENCOUNTER 2018-03-31 11:05 | Inpatient (IN) | payer OTHER ==
[2018-03-31] MEDS ORDERED: MAGNESIUM HYDROX 2400MG/30ML ORAL SUSPENSION 30 ML CUP PO PRN (14:15)
[2018-03-31] MEDS ORDERED: ACETAMINOPHEN 325 MG TABLET (FP) PO PRN (14:15)
[2018-03-31] MEDS ORDERED: MAGNESIUM CITRATE 300 ML BOTTLE PO PRN (14:15)
[2018-03-31] MEDS ORDERED: P-EPHED 60MG/TRIPROLIDI 2.5MG TABLET PO PRN (14:15)
[2018-03-31] MEDS ORDERED: IBUPROFEN 400 MG TABLET (FP) PO PRN (14:15)
[2018-03-31] MEDS ORDERED: LOPERAMIDE HCL 2 MG CAPSULE PO PRN (14:15)
[2018-03-31] MEDS ORDERED: guaiFENesin/D-METHORPHAN HB 10 ML UNIT-DOSE CUPS PO PRN (14:15)
[2018-03-31] MEDS ORDERED: MENTHOL/PHENOL 1 EACH UD MM PRN (14:15)
[2018-03-31] MEDS ORDERED: MAG HYDROX/AL HYDROX/SIMETH 30 ML UNIT-DOSE CUP PO PRN (14:15)
[2018-03-31] MEDS: THIAMINE HCL 100 MG TABLET (FP) PO SCH (21:11)
[2018-03-31] MEDS: MONTELUKAST NA 10 MG TABLET PO SCH (21:12)
[2018-03-31] MEDS: MELATONIN 5 MG TABLETS PO PRN (21:12)
[2018-04-01] MEDS: ALBUTEROL SO4 8 GM HFA INHALER IH PRN ×2 (06:32→21:44)
[2018-04-01] MEDS: TIOTROPIUM BROMIDE 18 MCG CAPSULES IH SCH (10:19)
[2018-04-01] MEDS: LOSARTAN 50MG/HCTZ 12.5MG 1 TAB (FP) PO SCH (10:20)
[2018-04-01] MEDS: PRENATAL VITAMINS W/ FOLIC ACID TABLET (FP) PO SCH (10:20)
[2018-04-01] MEDS: amLODIPine BESYLATE 10 MG TABLET (FP) PO SCH (10:20)
[2018-04-01] MEDS: hydrOXYzine PAMOATE 50 MG CAPSULE (FP) PO PRN ×2 (10:22→21:46)
--- NOTE | 2018-04-01 15:48 | PN ---
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 Ms Abel is admitted to [address] [place] [address] [place] [address]. Medications confirmed and reconciled.Ordered : Risperdal 1 mg po hs + cogentin 0.5 mg po hs.
[2018-04-01] MEDS: MELATONIN 5 MG TABLETS PO PRN (21:46)
[2018-04-01] MEDS: BENZTROPINE MESYLATE 1 MG TABLET (FP) PO SCH (21:46)
[2018-04-01] MEDS: risperiDONE 1 MG TABLET (FP) PO SCH (21:46)
[2018-04-01] MEDS: MONTELUKAST NA 10 MG TABLET PO SCH (21:47)
[2018-04-01] MEDS: THIAMINE HCL 100 MG TABLET (FP) PO SCH (21:47)
[2018-04-02] MEDS: TIOTROPIUM BROMIDE 18 MCG CAPSULES IH SCH (10:08)
[2018-04-02] MEDS: ALBUTEROL SO4 8 GM HFA INHALER IH PRN (10:09)
[2018-04-02] MEDS: PRENATAL VITAMINS W/ FOLIC ACID TABLET (FP) PO SCH (10:09)
[2018-04-02] MEDS: LOSARTAN 50MG/HCTZ 12.5MG 1 TAB (FP) PO SCH (10:09)
[2018-04-02] MEDS: amLODIPine BESYLATE 10 MG TABLET (FP) PO SCH (10:09)
[2018-04-02] MEDS: risperiDONE 1 MG TABLET (FP) PO SCH (21:27)
[2018-04-02] MEDS: MONTELUKAST NA 10 MG TABLET PO SCH (21:27)
[2018-04-02] MEDS: THIAMINE HCL 100 MG TABLET (FP) PO SCH (21:27)
[2018-04-02] MEDS: BENZTROPINE MESYLATE 1 MG TABLET (FP) PO SCH (21:28)
[2018-04-02] MEDS: MELATONIN 5 MG TABLETS PO PRN (21:29)
[2018-04-02] MEDS: hydrOXYzine PAMOATE 50 MG CAPSULE (FP) PO PRN (21:29)
[2018-04-03] MEDS ORDERED: PT OWN MED DRAWER 7, Y5N ONE ×2 (09:11→21:53)
[2018-04-03] MEDS: amLODIPine BESYLATE 10 MG TABLET (FP) PO SCH (10:28)
[2018-04-03] MEDS: LOSARTAN 50MG/HCTZ 12.5MG 1 TAB (FP) PO SCH (10:28)
[2018-04-03] MEDS: PRENATAL VITAMINS W/ FOLIC ACID TABLET (FP) PO SCH (10:28)
[2018-04-03] MEDS: TIOTROPIUM BROMIDE 18 MCG CAPSULES IH SCH (10:28)
[2018-04-03] MEDS: ALBUTEROL SO4 8 GM HFA INHALER IH PRN (10:30)
[2018-04-03] MEDS: hydrOXYzine PAMOATE 50 MG CAPSULE (FP) PO PRN ×2 (10:30→21:51)
[2018-04-03] MEDS: THIAMINE HCL 100 MG TABLET (FP) PO SCH (21:50)
[2018-04-03] MEDS: MONTELUKAST NA 10 MG TABLET PO SCH (21:51)
[2018-04-03] MEDS: risperiDONE 1 MG TABLET (FP) PO SCH (21:51)
[2018-04-03] MEDS: BENZTROPINE MESYLATE 1 MG TABLET (FP) PO SCH (21:51)
[2018-04-04] MEDS ORDERED: PT OWN MED DRAWER 7, Y5N ONE ×2 (09:08→10:17)
[2018-04-04] MEDS: TIOTROPIUM BROMIDE 18 MCG CAPSULES IH SCH (10:12)
[2018-04-04] MEDS: PRENATAL VITAMINS W/ FOLIC ACID TABLET (FP) PO SCH (10:13)
[2018-04-04] MEDS: LOSARTAN 50MG/HCTZ 12.5MG 1 TAB (FP) PO SCH (10:13)
[2018-04-04] MEDS: amLODIPine BESYLATE 10 MG TABLET (FP) PO SCH (10:13)
[2018-04-04] MEDS: hydrOXYzine PAMOATE 50 MG CAPSULE (FP) PO PRN (10:14)
--- NOTE | 2018-04-04 12:01 | HP ---
Psychiatrist Admission - Data Date of interview: 04/04/18 Admission source: Transfer from [address] [place] [address] Identifying data: Transition to [address] for this 57 y/o AA female who completed detox on [address] [place] [address] and sought rehabilitation for alcohol,heroin and cocaine dependence.Patient is single,a mother of one,unemployed,currently undomiciled and supported on SSI benefits. Medical History: Significant for hypertension,COPD,emphysema,bronchial asthma, arthritis,osteoporosis and obesity.Noted history of sickle trait.Patient is allergic to zolpidem (ambien).History of sleepwalking as a " reaction " to Ambien. Psychiatric History: Patient denies history of psychiatric hospitalizations.She is diagnosed with Schizoaffective Disorder.Maintained on risperdal and cogentin.Sees a psychiatrist, Dr Kaiser at the [facility] in [facility].Ms Abel admits to a chronic history of sub-optimal adherence to outpatient care.History of suicide attempt via drug overdose (1997). Physical/Sexual Abuse/Trauma History: Patient denies. Additional Comment: Discussed in this interview.Details of pattern of substance abuse as follows (from [facility] report) : Smoking history: Former smoker. Have you smoked in the past 12 months: No. Aproximately how many cigarettes per day: 0. If you are a former smoker, when did you quit?: in 2013. Hx Chewing Tobacco Use: No. Initiated information on smoking cessation: Yes. 'Breaking Loose' booklet given: 03/26/18. - Substance & Tx. History. Hx Alcohol Use: Yes. Hx Substance Use: Yes. Substance Use Type: Alcohol, Cocaine, Heroin. Hx Substance Use Treatment: Yes ([facility] 08/01/17 to 08/06/17). - Substances Abused. Heroin. Route: Inhalation. Frequency: Daily. Amount used: 8 bags. Age of first use: 42. Date of Last Use: 03/26/18. Alcohol. Route: Oral. Frequency: Daily. Amount used: 1 pint of priscilla/3 of 16 ozs of beer. Age of first use: 18. Date of Last Use: 03/25/18. Crack. Route: Smoking. Frequency: Daily. Amount used: 60$. Age of first use: 31. Date of Last Use: 03/26/18. Urine Drug Screen Results: MANDEEP-Cocaine, OPI-Opiates.Noted on admiision to [address] [place] [address]. Vital Signs: Vital Signs - 24 hr 04/04/18 04/04/18 04/04/18 00:30 03:30 07:47 Temperature 97.7 F Pulse Rate 68 Respiratory 18 18 18 Rate Blood Pressure 130/83 04/04/18 09:45 Temperature Pulse Rate 73 Respiratory Rate Blood Pressure 122/76 Allergies/Adverse Reactions: Allergies Allergy/AdvReac Type Severity Reaction Status Date / Time zolpidem tartrate Allergy Difficulty Verified 03/26/18 18:36 [From Ambien] Breathing - Substance Abuse/Tx History Hx Alcohol Use: Yes Hx Substance Use: Yes (alcohol,crack,heroin) Substance Use Type: Alcohol, Cocaine, Heroin Hx Substance Use Treatment: Yes Mental Status Exam - Mental Status Exam Alert and Oriented to: Time, Place, Person Cognitive Function: Good Patient Appearance: Well Groomed Mood: Hopeful, Euthymic Affect: Appropriate, Normal Range Patient Behavior: Appropriate, Cooperative Speech Pattern: Clear, Appropriate Voice Loudness: Normal Thought Process: Intact, Goal Oriented Thought Disorder: Not Present Hallucinations: Denies Suicidal Ideation: Denies Homicidal Ideation: Denies Insight/Judgement: Fair Sleep: Well Appetite: Good Muscle strength/Tone: Normal Gait/Station: Normal Psychiatric Findings - Problem List ([place] 1, 2,3) (1) Opioid dependence Current Visit: Yes Status: Acute Comment: . (2) Alcohol dependence Current Visit: Yes Status: Acute Comment: . (3) Cocaine dependence Current Visit: Yes Status: Acute Qualifiers: Substance use status: uncomplicated Qualified Code(s): F14.20 - Cocaine dependence, uncomplicated Comment: . (4) Nicotine dependence Current Visit: Yes Status: Acute Qualifiers: Nicotine product type: cigarettes Substance use status: in withdrawal Qualified Code(s): F17.213 - Nicotine dependence, cigarettes, with withdrawal Comment: . (5) Schizoaffective disorder Current Visit: Yes Status: Chronic Qualifiers: Schizoaffective disorder type: unspecified Qualified Code(s): F25.9 - Schizoaffective disorder, unspecified Comment: As per records.Non compliant with OPD care and medications. - Initial Treatment Plan Initial Treatment Plan: Psychoeducation.Psychotherapy.Sleep hygiene.Mediucations : risperdal 1 mg po hs + cogentin 0.5 mg po hs.Side effects /benefits of both drugs are explained to the patient.Ms Abel agrees to this plan of care.Observation.
--- NOTE | 2018-04-04 13:37 | PN ---
S Progress Note Note: Vital Signs Temperature 97.7 F 04/04/18 07:47 Pulse Rate 73 04/04/18 09:45 Respiratory Rate 18 04/04/18 07:47 Blood Pressure 122/76 04/04/18 09:45 O2 Sat by Pulse Oximetry (%) medications reviewed, patient with hx of COPD d/c melatonin, Vistaril aid Acifed d/t risk for respiratory depression. Continue to monitor
[2018-04-04] MEDS: THIAMINE HCL 100 MG TABLET (FP) PO SCH (21:42)
[2018-04-04] MEDS: MONTELUKAST NA 10 MG TABLET PO SCH (21:42)
[2018-04-04] MEDS: risperiDONE 1 MG TABLET (FP) PO SCH (21:42)
[2018-04-04] MEDS: BENZTROPINE MESYLATE 1 MG TABLET (FP) PO SCH (21:42)
[2018-04-04] MEDS ORDERED: diphenhydrAMINE HCL 50 MG CAPSULE PO PRN (22:00)
[2018-04-05 07:15] VITALS: TEMP 97.9
[2018-04-05 09:16] VITALS: BP 119/75; PULSE 67
[2018-04-05] MEDS: TIOTROPIUM BROMIDE 18 MCG CAPSULES IH SCH (10:36)
[2018-04-05] MEDS: LOSARTAN 50MG/HCTZ 12.5MG 1 TAB (FP) PO SCH (10:36)
[2018-04-05] MEDS: PRENATAL VITAMINS W/ FOLIC ACID TABLET (FP) PO SCH (10:36)
[2018-04-05] MEDS: amLODIPine BESYLATE 10 MG TABLET (FP) PO SCH (10:36)
--- NOTE | 2018-04-05 16:23 | PN ---
[facility] Progress Note Note: Psychiatry Attending's note : Informed of thos patient's decision to leave the program. Came to [address] to explore her reasons / motives. Ms Abel states that she has changed her mind. " I rather go to [place] to be with my son." Patient is against discontinuation of vistaril. " It has been my medication for so long.I disagree with the doctor." She resists all attempts made to persuade her to stay and complete the program. Mental status remains stable.Medications are well tolerated.Cognition : intact. Patient is at her baseline.Left unit.See staff's notes for details. Scripts for risperdal + cogentin already sent to pharmacy.
[2018-04-05] MEDS ORDERED: PT OWN MED DRAWER 7, Y5N ONE (16:33)
== END 2018-04-05 17:36 | disposition left against medical advice (07) | DRG 770 ==
LOC: YASAS 11:05 → Y3E 11:10
PROVIDERS: ADMIT Psychiatry & Neurology Psychiatry; ATTEND Psychiatry & Neurology Psychiatry
PROC: HZ42ZZZ Group Counseling for Substance Abuse Treatment, Cognitive-Behavioral (ICD-10-PCS; principal; 2018-03-31)
DX: F11.20 Opioid dependence, uncomplicated (principal); F10.20 Alcohol dependence, uncomplicated; F14.20 Cocaine dependence, uncomplicated; F17.213 Nicotine dependence, cigarettes, with withdrawal; F25.9 Schizoaffective disorder, unspecified
CPT/HCPCS: J2794

== ENCOUNTER 2018-07-19 15:18 | Inpatient (IN) | payer OTHER ==
[2018-07-19 16:41] VITALS: BMI 28.3
--- NOTE | 2018-07-19 18:44 | HP ---
COWS - Scale Resting Pulse: 0= SD 80 or Below Sweatin= Chills/Flushing Restless Observation: 1= Difficult to Sit Still Pupil Size: 1= Pupils >than Normal Bone or Joint Aches: 1= Mild Discomfort Runny Nose/ Eye Tearin= Runny Nose/Eyes GI Upset > 30mins: 3= Vomiting/Diarrhea Tremor Observation: 1= Tremor [place], Not Seen Yawning Observation: 0= None Anxiety or Irritability: 2=Irritable/Anxious Goose Flesh Skin: 0=Smooth Skin COWS Score: 12 CIWA Score - CIWA Score Nausea/Vomitin-Int. Nausea w/Dry Heave Muscle Tremors: 2 Anxiety: 3 Agitation: 3 Paroxysmal Sweats: No Perspiration Orientation: 0-Oriented Tacttile Disturbances: 1-Very Mild Itch/Numbness Auditory Disturbances: 0-None Visual Disturbances: 0-None Headache: 0-None Present CIWA-Ar Total Score: 13 Admission ROS BHS - HPI Chief Complaint: " I am tire, I feel my body is shutting down" alcohol and opioid withdrawal symptoms Allergies/Adverse Reactions: Allergies Allergy/AdvReac Type Severity Reaction Status Date / Time zolpidem tartrate Allergy Difficulty Verified 07/19/18 18:07 [From Ambien] Breathing History of Present Illness: 58 yo female with hx of heroin (nasal), alcohol, crack / cocaine dependence is here seeking detox, c/o of withdrawal sx, this is one of multiple admissions. Last detox [facility] detox and rehab 03/26/18 - 04/05/18. PMHX: HTN ( non-compliance with meds), asthma, COPD, hx PPD +, depression, insomnia and schizophrenia. Longest period of sobriety with years. Denies any legal troubles at this time. Exam Limitations: No Limitations - Ebola screening Have you traveled outside of the country in the last 21 days: No Have you had contact with anyone from an Ebola affected area: No Have you been sick,other than usual withdrawal symptoms: No - Review of Systems Constitutional: Chills, Changes in sleep, Unintentional Wgt. Loss (10 lbs), Other (fatigue) EENT: reports: Nose Congestion Respiratory: reports: Cough (one week, pt attributes to asthma), SOB with Exertion Cardiac: reports: No Symptoms Reported GI: reports: Diarrhea, Nausea, Poor Appetite, Poor Fluid Intake, Vomiting : reports: No Symptoms Reported Musculoskeletal: reports: Back Pain Integumentary: reports: Dryness Neuro: reports: No Symptoms reported Endocrine: reports: Increased Thirst Hematology: reports: No Symptoms Reported Psychiatric: reports: Orientated x3, Anxious Other Systems: Reviewed and Negative Patient History - Patient Medical History Hx Anemia: No Hx Asthma: Yes Hx Chronic Obstructive Pulmonary Disease (COPD): Yes Hx Cancer: No Hx Cardiac Disorders: No Hx Congestive Heart Failure: No Hx Hypertension: Yes Hx Hypercholesterolemia: Yes (non compliance) Hx Pacemaker: No HX Cerebrovascular Accident: No Hx Seizures: No Hx Dementia: No Hx Diabetes: No Hx Gastrointestinal Disorders: No Hx Liver Disease: No Hx Genitourinary Disorders: No Hx Sexually Transmitted Disorders: No Hx Renal Disease (ESRD): No Hx Thyroid Disease: No Hx Human Immunodeficiency Virus (HIV): No (last 2017 negative) Hx Hepatitis C: No Hx Depression: Yes Hx Suicide Attempt: No Hx Bipolar Disorder: No Hx Schizophrenia: Yes (with psychotic features, denies hx of psych admission ) - Patient Surgical History Past Surgical History: Yes Hx Neurologic Surgery: No Hx Cataract Extraction: No Hx Cardiac Surgery: No Hx Lung Surgery: No Hx Breast Surgery: No Hx Breast Biopsy: No Hx Abdominal Surgery: No Hx Appendectomy: No Hx Cholecystectomy: No Hx Genitourinary Surgery: No Hx Section: No Hx Orthopedic Surgery: No Other Surgical History: Dilatation & Curettage 01/2014 Anesthesia Reaction: No - PPD History Previous Implant?: Yes (Chest xray NEG march 2018) Documented Results: Positive w/proof Implanted On Prior [facility] Admission?: No PPD to be Administered?: No - Reproductive History Patient is a Female of Child Bearing Age (11 -55 yrs old): No Last Menstrual Period: 07/19/09 Patient : No - Smoking Cessation Smoking history: Former smoker Have you smoked in the past 12 months: No Aproximately how many cigarettes per day: 0 If you are a former smoker, when did you quit?: in 2013 Hx Chewing Tobacco Use: No Initiated information on smoking cessation: Yes 'Breaking Loose' booklet given: 07/19/18 - Substance & Tx. History Hx Alcohol Use: Yes Hx Substance Use: Yes Substance Use Type: Alcohol, Cocaine, Heroin Hx Substance Use Treatment: Yes ( Last [facility] detox and rehab 03/26/18 - 04/05/18.) - Substances Abused Alcohol Route: Oral Frequency: Daily Amount used: liquor- 1 pint, beer + 1 six pack Age of first use: 18 Date of Last Use: 07/18/18 Heroin Route: Inhalation Frequency: Daily Amount used: 7 bags Age of first use: 42 Date of Last Use: 07/18/18 Cocaine Route: Inhalation Frequency: Daily Amount used: $50 worth Age of first use: 31 Date of Last Use: 07/18/18 Family Disease History - Family Disease History Family Disease History: Diabetes: Mother (chf ), Brother (heroin dependencies 2 brothers ), Heart Disease: Mother, CA: Father ( lungdeceased), Respiratory: Mother, Brother, Other: Brother, Sister (no sister) Admission Physical Exam [facility] - Vital Signs Vital Signs: Vital Signs - 24 hr 07/19/18 16:36 Temperature 97.1 F L Pulse Rate 77 Respiratory 18 Rate Blood Pressure 135/77 - Physical General Appearance: Yes: Disheveled, Mild Distress, Sweating, Anxious HEENTM: Yes: Rhinorrhea, Other (poor dentition, dry mucous membranes) Respiratory: Yes: Chest Non-Tender, Lungs Clear, Normal Breath Sounds, No Respiratory Distress Neck: Yes: Within Normal Limits Breast: Yes: Breast Exam Deferred Cardiology: Yes: Regular Rhythm, Regular Rate Abdominal: Yes: Normal Bowel Sounds, Non Tender, Flat, Soft Genitourinary: Yes: Within Normal Limits Back: Yes: Normal Inspection Musculoskeletal: Yes: full range of Motion, Gait Steady, Pelvis Stable, Back pain Extremities: Yes: Normal Capillary Refill, Normal Inspection, Normal Range of Motion, Non-Tender Neurological: Yes: lineworker II-XII NML intact, Fully Oriented, Alert, Motor Strength 5/5, Depressed Affect Integumentary: Yes: Normal Color, Dry, Warm, Diaphoresis Lymphatic: Yes: Within Normal Limits - Diagnostic (1) Alcohol dependence with uncomplicated withdrawal Current Visit: Yes Status: Acute (2) Opioid dependence with withdrawal Current Visit: Yes Status: Acute (3) COPD (chronic obstructive pulmonary disease) with emphysema Current Visit: Yes Status: Chronic Qualifiers: Emphysema type: panlobular Qualified Code(s): J43.1 - Panlobular emphysema Comment: . (4) PPD positive, treated Current Visit: Yes Status: Chronic Comment: . (5) Hypertension Current Visit: Yes Status: Chronic Qualifiers: Hypertension type: essential hypertension Qualified Code(s): I10 - Essential (primary) hypertension Cleared for Admission S - Detox or Rehab [facility] Level of Care: Medically Managed Detox Regimen/Protocol: Methadone/Librium [facility] Breath Alcohol Content Breath Alcohol Content: 0 Urine Pregancy Test - Result Urine Test Results: Negative- NO Line Present Urine Drug Screen - Results Drug Screen Negative: No Urine Drug Screen Results: MANDEEP-Cocaine, OPI-Opiates, FEN-Fentanyl
[2018-07-19] MEDS ORDERED: diphenhydrAMINE HCL 25 MG CAPSULE (FP) PO PRN (18:50)
[2018-07-19] MEDS ORDERED: diphenhydrAMINE HCL 50 MG CAPSULE PO PRN (18:59)
[2018-07-19] MEDS ORDERED: LOPERAMIDE HCL 2 MG CAPSULE PO PRN (19:00)
[2018-07-19] MEDS ORDERED: IBUPROFEN 400 MG TABLET (FP) PO PRN (19:00)
[2018-07-19] MEDS ORDERED: MAG HYDROX/AL HYDROX/SIMETH 30 ML UNIT-DOSE CUP PO PRN (19:00)
[2018-07-19] MEDS ORDERED: MAGNESIUM HYDROX 2400MG/30ML ORAL SUSPENSION 30 ML CUP PO PRN (19:00)
[2018-07-19] MEDS ORDERED: MENTHOL/PHENOL 1 EACH UD MM PRN (19:00)
[2018-07-19] MEDS ORDERED: ACETAMINOPHEN 325 MG TABLET (FP) PO PRN (19:00)
[2018-07-19] MEDS ORDERED: chlordiazePOXIDE HCL 25 MG CAPSULE PO PRN (19:00)
[2018-07-19] MEDS ORDERED: MAGNESIUM CITRATE 300 ML BOTTLE PO PRN (19:00)
[2018-07-19] MEDS ORDERED: guaiFENesin/D-METHORPHAN HB 10 ML UNIT-DOSE CUPS PO PRN (19:00)
[2018-07-19] MEDS ORDERED: P-EPHED 60MG/TRIPROLIDI 2.5MG TABLET PO PRN (19:00)
[2018-07-19] MEDS ORDERED: METHADONE HCL 10 MG TABLET (FOR DETOX USE ONLY) PO ONE ×2 (19:15→23:00)
[2018-07-19] MEDS ORDERED: MELATONIN 5 MG TABLETS PO PRN (22:00)
[2018-07-19] MEDS: THIAMINE HCL 100 MG TABLET (FP) PO SCH (22:31)
[2018-07-19] MEDS: MONTELUKAST NA 10 MG TABLET PO SCH (22:31)
[2018-07-19] MEDS: chlordiazePOXIDE HCL 25 MG CAPSULE PO SCH (22:31)
[2018-07-19] MEDS: BUDESONIDE/FORMETEROL FUMARATE 80/4.5 mcg INHALER IH SCH (23:09)
[2018-07-20] MEDS: ALBUTEROL SO4 2.5/IPRATROPIUM 0.5 INH SOL 3 ML VIAL.NEB. NEB PRN ×2 (01:57→15:32)
[2018-07-20] MEDS: chlordiazePOXIDE HCL 25 MG CAPSULE PO SCH ×4 (05:42→22:16)
[2018-07-20] MEDS: ALBUTEROL SO4 8 GM HFA INHALER IH PRN ×2 (05:44→10:24)
--- NOTE | 2018-07-20 07:32 | CONSULT ---
[facility] Psychiatric Consult - Data Date of interview: 07/20/18 Admission source: [facility] Identifying data: This is a 58 years old female, single mother of one, domiciled, on SSI support, with no psychiatric hospitalization history, with history of Schizoaffective disorder, reports Heroin Cocaine, Alcohol dependence , reports withdrawal symptoms and seeking detox. Last detox at [facility] and folloeing rehab on 03/26/18 - 04/05/18. Substance Abuse History: Smoking Cessation. Smoking history: Former smoker. Have you smoked in the past 12 months: No. Aproximately how many cigarettes per day: 0. If you are a former smoker, when did you quit?: in 2013. Hx Chewing Tobacco Use: No. Initiated information on smoking cessation: Yes. ' Breaking Loose' booklet given: 07/19/18. - Substance & Tx. History. Hx Alcohol Use: Yes. Hx Substance Use: Yes. Substance Use Type: Alcohol, Cocaine , Heroin. Hx Substance Use Treatment: Yes ( Last [facility] detox and rehab 03/26/18 - 04/05/18.). - Substances Abused. Alcohol. Route: Oral. Frequency: Daily. Amount used: liquor- 1 pint, beer + 1 six pack. Age of first use: 18. Date of Last Use: 07/18/18. Heroin. Route: Inhalation. Frequency: Daily. Amount used: 7 bags. Age of first use: 42. Date of Last Use: 07/18/18. Cocaine. Route: Inhalation. Frequency: Daily. Amount used: $50 worth. Age of first use : 31. Date of Last Use: 07/18/18 Medical History: COPD, HTN, PPD=, Asthma, Obesity history Psychiatric History: Patient reports history of Schizoaffective dicorder, denies history of psychiatric hospitalizations, denies suicidal and homicidal histoey, reports stableon: Riperdal 1mg po qhs. Cogentin 0,5 mg po qhs Physical/Sexual Abuse/Trauma History: Denies Additional Comment: Riperdal 1mg po qhs. Cogentin 0,5 mg po qhs Mental Status Exam - Mental Status Exam Alert and Oriented to: Person Cognitive Function: Fair Patient Appearance: Well Groomed Mood: Apprehensive Affect: Mood Congruent Patient Behavior: Cooperative Speech Pattern: Appropriate Voice Loudness: Normal Thought Process: Goal Oriented Thought Disorder: Being Controlled Hallucinations: Denies Suicidal Ideation: Denies Homicidal Ideation: Denies Insight/Judgement: Fair Sleep: Difficulty falling asleep Appetite: Weight gain Muscle strength/Tone: Normal Gait/Station: Normal Additional Comments: Riperdal 1mg po qhs. Cogentin 0,5 mg po qhs Psychiatric Findings - Problem List ([place] 1, 2,3) (1) Alcohol dependence with uncomplicated withdrawal Current Visit: Yes Status: Acute (2) Opioid dependence with withdrawal Current Visit: Yes Status: Acute (3) COPD (chronic obstructive pulmonary disease) with emphysema Current Visit: Yes Status: Chronic Qualifiers: Emphysema type: panlobular Qualified Code(s): J43.1 - Panlobular emphysema Comment: . (4) Hypertension Current Visit: Yes Status: Chronic Qualifiers: Hypertension type: essential hypertension Qualified Code(s): I10 - Essential (primary) hypertension (5) Obesity Current Visit: Yes Status: Chronic Comment: . (6) PPD positive, treated Current Visit: Yes Status: Chronic Comment: . (7) Alcohol dependence Current Visit: No Status: Acute Comment: . (8) Asthma exacerbation Current Visit: No Status: Acute (9) Cocaine dependence Current Visit: No Status: Acute Qualifiers: Substance use status: uncomplicated Qualified Code(s): F14.20 - Cocaine dependence, uncomplicated Comment: . (10) Cough Current Visit: No Status: Acute (11) Nicotine dependence Current Visit: No Status: Acute Qualifiers: Nicotine product type: cigarettes Substance use status: in withdrawal Qualified Code(s): F17.213 - Nicotine dependence, cigarettes, with withdrawal Comment: . (12) Opioid dependence Current Visit: No Status: Acute Comment: . (13) Substance induced mood disorder Current Visit: No Status: Acute (14) Asthma Current Visit: No Status: Chronic Qualifiers: Asthma severity: moderate Asthma persistence: persistent Asthma complication type: uncomplicated Qualified Code(s): J45.40 - Moderate persistent asthma, uncomplicated Comment: . (15) Schizoaffective disorder, bipolar type Current Visit: No Status: Suspected - Initial Treatment Plan Initial Treatment Plan: Risperdal 1mg po qhs. Cogentin 0,5mg po qhs
[2018-07-20] MEDS ORDERED: METHADONE HCL 10 MG TABLET (FOR DETOX USE ONLY) PO SCH (10:00)
[2018-07-20 10:08] LABS: URINE APPEARANCE CLEAR; URINE BILIRUBIN NEGATIVE (<2.0 mg/dL); URINE COLOR YELLOW; URINE GLUCOSE (UA) NEGATIVE (NEGATIVE); URINE KETONE NEGATIVE (NEGATIVE); URINE LEUK ESTERASE NEGATIVE (NEGATIVE); URINE NITRITE NEGATIVE (NEGATIVE); URINE PROTEIN NEGATIVE (NEGATIVE)
[2018-07-20 10:21] LABS: HEMATOCRIT 41.9 % (32.4-45.2); HEMOGLOBIN 13.3 GM/dL (10.7-15.3); MCH 27.8 pg (25.7-33.7); MCHC 31.7 g/dl (32.0-36.0); MEAN CELL VOLUME 87.6 fl (80-96); MEAN PLT VOLUME 9.6 fl (7.5-11.1); PLATELET COUNT 218 K/MM3 (134-434); RBC 4.78 M/mm3 (3.60-5.2); WHITE BLOOD COUNT 6.2 K/mm3 (4.0-10.0)
[2018-07-20 10:23] LABS: ALBUMIN 3.5 g/dl (3.4-5.0); ALK PHOS 64 U/L (45-117); ANION GAP 11 MMOL/L (8-16); BILIRUBIN,TOTAL 0.4 mg/dL (0.2-1); BLOOD UREA NITROGEN 12 mg/dL (7-18); CALCIUM 8.6 mg/dL (8.5-10.1); CHLORIDE 100 mmol/L (98-107); CO2 29 mmol/L (21-32); CREATININE 0.8 mg/dL (0.55-1.3); GLUCOSE,RANDOM 88 mg/dL (74-106); POTASSIUM 3.3 mmol/L (3.5-5.1); SGOT/AST 20 U/L (15-37); SGPT/ALT 17 U/L (13-61); SODIUM 140 mmol/L (136-145); TOT PROT 6.9 g/dl (6.4-8.2)
[2018-07-20] MEDS: ASPIRIN 81 MG CHEWABLE TABLETS PO SCH (10:23)
[2018-07-20] MEDS: PRENATAL VITAMINS W/ FOLIC ACID TABLET (FP) PO SCH (10:23)
[2018-07-20] MEDS: TIOTROPIUM BROMIDE 2.5 MCG (SPIRIVA) RESPIMAT INHALER IH SCH (10:24)
[2018-07-20] MEDS: amLODIPine BESYLATE 10 MG TABLET (FP) PO SCH (10:24)
[2018-07-20] MEDS: BUDESONIDE/FORMETEROL FUMARATE 80/4.5 mcg INHALER IH SCH ×2 (10:24→22:17)
[2018-07-20] MEDS: LOSARTAN 50MG/HCTZ 12.5MG 1 TAB (FP) PO SCH (10:56)
--- NOTE | 2018-07-20 11:33 | PN ---
S CIWA - CIWA Score Nausea/Vomitin-Mild Nausea/No Vomiting Muscle Tremors: 3 Anxiety: 2 Agitation: 1-Slight > Activity Paroxysmal Sweats: 1-Minimal Palms Moist Orientation: 1-Uncertain about Date Tacttile Disturbances: 1-Very Mild Itch/Numbness Auditory Disturbances: 1-Very Mild Visual Disturbances: 0-None Headache: 1-Very Mild CIWA-Ar Total Score: 12 BHS COWS - Scale Resting Pulse: 0= [place] 80 or Below Sweatin= Chills/Flushing Restless Observation: 1= Difficult to Sit Still Pupil Size: 0= Normal to Room Light Bone or Joint Aches: 1= Mild Discomfort Runny Nose/ Eye Tearin= Nasal Congestion GI Upset > 30mins: 2= Nausea/Diarrhea Tremor Observation of Outstretched Hands: 1= Tremor [place], Not Seen Yawning Observation: 2= >3x During Session Anxiety or Irritability: 2=Irritable/Anxious Goose Flesh Skin: 0=Smooth Skin COWS Score: 11 S Progress Note (SOAP) Subjective: tremor sweat restlessness body ache muscle cramp Objective: 07/20/18 11:28 Vital Signs Temperature 97.9 F 07/20/18 10:10 Pulse Rate 72 07/20/18 10:10 Respiratory Rate 19 07/20/18 10:10 Blood Pressure 114/61 07/20/18 10:10 O2 Sat by Pulse Oximetry (%) Laboratory Last Values WBC 6.2 K/mm3 (4.0-10.0) 07/20/18 07:00 RBC 4.78 M/mm3 (3.60-5.2) 07/20/18 07:00 Hgb 13.3 GM/dL (10.7-15.3) 07/20/18 07:00 Hct 41.9 % (32.4-45.2) 07/20/18 07:00 MCV 87.6 fl (80-96) 07/20/18 07:00 MCH 27.8 pg (25.7-33.7) 07/20/18 07:00 MCHC 31.7 g/dl (32.0-36.0) L 07/20/18 07:00 RDW 16.0 % (11.6-15.6) H 07/20/18 07:00 Plt Count 218 K/MM3 (134-434) 07/20/18 07:00 MPV 9.6 fl (7.5-11.1) 07/20/18 07:00 Sodium 140 mmol/L (136-145) 07/20/18 07:00 Potassium 3.3 mmol/L (3.5-5.1) L 07/20/18 07:00 Chloride 100 mmol/L (98-107) 07/20/18 07:00 Carbon Dioxide 29 mmol/L (21-32) 07/20/18 07:00 Anion Gap 11 MMOL/L (8-16) 07/20/18 07:00 BUN 12 mg/dL (7-18) 07/20/18 07:00 Creatinine 0.8 mg/dL (0.55-1.3) 07/20/18 07:00 Creat Clearance w eGFR > 60 (>60) 07/20/18 07:00 Random Glucose 88 mg/dL (74-106) 07/20/18 07:00 Calcium 8.6 mg/dL (8.5-10.1) 07/20/18 07:00 Total Bilirubin 0.4 mg/dL (0.2-1) 07/20/18 07:00 AST 20 U/L (15-37) 07/20/18 07:00 ALT 17 U/L (13-61) 07/20/18 07:00 Alkaline Phosphatase 64 U/L (45-117) 07/20/18 07:00 Total Protein 6.9 g/dl (6.4-8.2) 07/20/18 07:00 Albumin 3.5 g/dl (3.4-5.0) 07/20/18 07:00 Urine Color Yellow 07/20/18 07:00 Urine Appearance Clear 07/20/18 07:00 Urine pH 6.0 (5.0-8.0) 07/20/18 07:00 Ur Specific [place] 1.023 (1.010-1.035) 07/20/18 07:00 Urine Protein Negative (NEGATIVE) 07/20/18 07:00 Urine Glucose (UA) Negative (NEGATIVE) 07/20/18 07:00 Urine Ketones Negative (NEGATIVE) 07/20/18 07:00 Urine Blood Negative (NEGATIVE) 07/20/18 07:00 Urine Nitrite Negative (NEGATIVE) 07/20/18 07:00 Urine Bilirubin Negative (<2.0 mg/dL) 07/20/18 07:00 Urine Urobilinogen 2.0 mg/dL (0.2-1.0) H 07/20/18 07:00 Ur Leukocyte Esterase Negative (NEGATIVE) 07/20/18 07:00 lab noted K+ Assessment: 07/20/18 11:31 withdrawal sx low K+ Plan: continue detox K+ supplement repeat K+
[2018-07-20] MEDS: POTASSIUM CHLORIDE TABS 20 MEQ TABLET.ER (FP) PO SCH ×2 (12:38→22:16)
--- NOTE | 2018-07-20 15:10 | EKG ---
Test Reason : Blood Pressure : / mmHG Vent. Rate : 058 BPM Atrial Rate : 058 BPM P-R Int : 152 ms QRS Dur : 092 ms QT Int : 460 ms P-R-T Axes : 058 064 054 degrees QTc Int : 451 ms SINUS BRADYCARDIA OTHERWISE NORMAL ECG WHEN COMPARED WITH ECG OF 26-MAR-2018 20:05, NO SIGNIFICANT CHANGE WAS FOUND Confirmed by CANDY MORALEZ MD ([id number]) on 07/20/2018 3:09:41 PM Referred By: Confirmed By:CANDY MORALEZ MD
[2018-07-20] MEDS: THIAMINE HCL 100 MG TABLET (FP) PO SCH (22:16)
[2018-07-20] MEDS: MONTELUKAST NA 10 MG TABLET PO SCH (22:16)
[2018-07-20] MEDS: risperiDONE 1 MG TABLET (FP) PO SCH (22:16)
[2018-07-20] MEDS: BENZTROPINE MESYLATE 1 MG TABLET (FP) PO SCH (22:17)
[2018-07-21] MEDS: chlordiazePOXIDE HCL 25 MG CAPSULE PO SCH ×3 (04:59→17:42)
[2018-07-21] MEDS: TIOTROPIUM BROMIDE 2.5 MCG (SPIRIVA) RESPIMAT INHALER IH SCH (10:15)
[2018-07-21] MEDS: PRENATAL VITAMINS W/ FOLIC ACID TABLET (FP) PO SCH (10:15)
[2018-07-21] MEDS: ASPIRIN 81 MG CHEWABLE TABLETS PO SCH (10:15)
[2018-07-21] MEDS: LOSARTAN 50MG/HCTZ 12.5MG 1 TAB (FP) PO SCH (10:15)
[2018-07-21] MEDS: METHADONE HCL 5 MG TABLET (FOR DETOX USE ONLY) PO SCH (10:15)
[2018-07-21] MEDS: POTASSIUM CHLORIDE TABS 20 MEQ TABLET.ER (FP) PO SCH ×2 (10:15→22:14)
[2018-07-21] MEDS: amLODIPine BESYLATE 10 MG TABLET (FP) PO SCH (10:15)
[2018-07-21] MEDS: BUDESONIDE/FORMETEROL FUMARATE 80/4.5 mcg INHALER IH SCH ×2 (10:15→22:17)
--- NOTE | 2018-07-21 12:55 | PN ---
S CIWA - CIWA Score Nausea/Vomitin-No Nausea/No Vomiting Muscle Tremors: 2 Anxiety: 2 Agitation: 2 Paroxysmal Sweats: No Perspiration Orientation: 0-Oriented Tacttile Disturbances: 0-None Auditory Disturbances: 0-None Visual Disturbances: 0-None Headache: 2-Mild CIWA-Ar Total Score: 8 BHS Progress Note (SOAP) Subjective: PATIENT C/O SHAKES, HEADACHE, ANXIETY AND RESTLESSNESS Objective: 07/21/18 12:53 Vital Signs Temperature 97.7 F 07/21/18 09:06 Pulse Rate 70 07/21/18 09:06 Respiratory Rate 16 07/21/18 09:06 Blood Pressure 127/71 07/21/18 09:06 O2 Sat by Pulse Oximetry (%) Laboratory Tests 07/20/18 07/20/18 07/20/18 07:00 07:00 07:00 WBC 6.2 RBC 4.78 Hgb 13.3 Hct 41.9 MCV 87.6 MCH 27.8 MCHC 31.7 L RDW 16.0 H Plt Count 218 MPV 9.6 Sodium 140 Potassium 3.3 L Chloride 100 Carbon Dioxide 29 Anion Gap 11 BUN 12 Creatinine 0.8 Creat Clearance w eGFR > 60 Random Glucose 88 Calcium 8.6 Total Bilirubin 0.4 AST 20 ALT 17 Alkaline Phosphatase 64 Total Protein 6.9 Albumin 3.5 Urine Color Urine Appearance Urine pH Ur Specific [place] Urine Protein Urine Glucose (UA) Urine Ketones Urine Blood Urine Nitrite Urine Bilirubin Urine Urobilinogen Ur Leukocyte Esterase RPR Titer HIV 1&2 Antibody Screen Negative HIV P24 Antigen Negative 07/20/18 07/20/18 07/21/18 07:00 07:00 07:30 WBC RBC Hgb Hct MCV MCH MCHC RDW Plt Count MPV Sodium Potassium 4.2 Chloride Carbon Dioxide Anion Gap BUN Creatinine Creat Clearance w eGFR Random Glucose Calcium Total Bilirubin AST ALT Alkaline Phosphatase Total Protein Albumin Urine Color Yellow Urine Appearance Clear Urine pH 6.0 Ur Specific [place] 1.023 Urine Protein Negative Urine Glucose (UA) Negative Urine Ketones Negative Urine Blood Negative Urine Nitrite Negative Urine Bilirubin Negative Urine Urobilinogen 2.0 H Ur Leukocyte Esterase Negative RPR Titer Nonreactive HIV 1&2 Antibody Screen HIV P24 Antigen PE: SKIN WARM, MILD SWEATING CAR S1 S2 RESP +SCATTERED WHEEZES EXT + TREMORS, FULL ROM ALERT AND ORIENTED X 3 Assessment: 07/21/18 12:55 WITHDRAWAL SX Plan: CONTINUE DETOX REGIMEN ENCOURAGE ORAL FLUIDS CONTINUE INHALERS FOR ASTHMA CONTINUE TO MONITOR
[2018-07-21] MEDS: MONTELUKAST NA 10 MG TABLET PO SCH (22:14)
[2018-07-21] MEDS: risperiDONE 1 MG TABLET (FP) PO SCH (22:14)
[2018-07-21] MEDS: chlordiazePOXIDE 5 MG CAPSULE PO SCH (22:14)
[2018-07-21] MEDS: THIAMINE HCL 100 MG TABLET (FP) PO SCH (22:14)
[2018-07-21] MEDS: BENZTROPINE MESYLATE 1 MG TABLET (FP) PO SCH (22:15)
[2018-07-21] MEDS: ALBUTEROL SO4 8 GM HFA INHALER IH PRN (22:17)
[2018-07-22] MEDS: chlordiazePOXIDE 5 MG CAPSULE PO SCH ×3 (05:42→18:15)
--- NOTE | 2018-07-22 10:10 | PN ---
[facility] Progress Note Note: PATIENT CONTINUES WITH DETOX REGIMEN. C/O PRODUCTIVE COUGH WITH YELLOW PHLEGM. DENIES SOB, FEVER AND CHEST PAIN. Vital Signs Temperature 98.0 F 07/22/18 09:33 Pulse Rate 85 07/22/18 09:33 Respiratory Rate 18 07/22/18 09:33 Blood Pressure 112/57 L 07/22/18 09:33 O2 Sat by Pulse Oximetry (%) Laboratory Tests 07/20/18 07/20/18 07/20/18 07:00 07:00 07:00 WBC 6.2 RBC 4.78 Hgb 13.3 Hct 41.9 MCV 87.6 MCH 27.8 MCHC 31.7 L RDW 16.0 H Plt Count 218 MPV 9.6 Sodium 140 Potassium 3.3 L Chloride 100 Carbon Dioxide 29 Anion Gap 11 BUN 12 Creatinine 0.8 Creat Clearance w eGFR > 60 Random Glucose 88 Calcium 8.6 Total Bilirubin 0.4 AST 20 ALT 17 Alkaline Phosphatase 64 Total Protein 6.9 Albumin 3.5 Urine Color Urine Appearance Urine pH Ur Specific [place] Urine Protein Urine Glucose (UA) Urine Ketones Urine Blood Urine Nitrite Urine Bilirubin Urine Urobilinogen Ur Leukocyte Esterase RPR Titer HIV 1&2 Antibody Screen Negative HIV P24 Antigen Negative 07/20/18 07/20/18 07/21/18 07:00 07:00 07:30 WBC RBC Hgb Hct MCV MCH MCHC RDW Plt Count MPV Sodium Potassium 4.2 Chloride Carbon Dioxide Anion Gap BUN Creatinine Creat Clearance w eGFR Random Glucose Calcium Total Bilirubin AST ALT Alkaline Phosphatase Total Protein Albumin Urine Color Yellow Urine Appearance Clear Urine pH 6.0 Ur Specific [place] 1.023 Urine Protein Negative Urine Glucose (UA) Negative Urine Ketones Negative Urine Blood Negative Urine Nitrite Negative Urine Bilirubin Negative Urine Urobilinogen 2.0 H Ur Leukocyte Esterase Negative RPR Titer Nonreactive HIV 1&2 Antibody Screen HIV P24 Antigen PE: SKIN WARM AND DRY CAR S1S2 RESP +SCATTERED WHEEZES AND RHONCHI B/L UPPER AIRWAYS EXT FULL ROM, AMB AD ARI ALERT AND ORIENTED X 3 A/P WITHDRAWAL SX CONTINUE DETOX REGIMEN ENCOURAGE ORAL FLUIDS START LEVAQUIN 500MG DAILY X 7 DAYS CONTINUE TO MONITOR
[2018-07-22] MEDS: LOSARTAN 50MG/HCTZ 12.5MG 1 TAB (FP) PO SCH (10:20)
[2018-07-22] MEDS: PRENATAL VITAMINS W/ FOLIC ACID TABLET (FP) PO SCH (10:20)
[2018-07-22] MEDS: POTASSIUM CHLORIDE TABS 20 MEQ TABLET.ER (FP) PO SCH ×2 (10:20→22:30)
[2018-07-22] MEDS: ASPIRIN 81 MG CHEWABLE TABLETS PO SCH (10:20)
[2018-07-22] MEDS: METHADONE HCL 5 MG TABLET (FOR DETOX USE ONLY) PO SCH (10:21)
[2018-07-22] MEDS: amLODIPine BESYLATE 10 MG TABLET (FP) PO SCH (10:21)
[2018-07-22] MEDS: BUDESONIDE/FORMETEROL FUMARATE 80/4.5 mcg INHALER IH SCH ×2 (10:22→22:31)
[2018-07-22] MEDS: TIOTROPIUM BROMIDE 2.5 MCG (SPIRIVA) RESPIMAT INHALER IH SCH (10:22)
[2018-07-22] MEDS: BENZTROPINE MESYLATE 1 MG TABLET (FP) PO SCH (22:29)
[2018-07-22] MEDS: chlordiazePOXIDE HCL 10 MG CAPSULE PO SCH (22:29)
[2018-07-22] MEDS: THIAMINE HCL 100 MG TABLET (FP) PO SCH (22:30)
[2018-07-22] MEDS: MONTELUKAST NA 10 MG TABLET PO SCH (22:30)
[2018-07-22] MEDS: risperiDONE 1 MG TABLET (FP) PO SCH (22:30)
[2018-07-23] MEDS: chlordiazePOXIDE HCL 10 MG CAPSULE PO SCH ×3 (05:05→17:38)
--- NOTE | 2018-07-23 09:59 | PN ---
BHS Progress Note (SOAP) Subjective: feeling better no tremor no body aches no gi distress less sweat sleep better at night Objective: 07/23/18 09:58 Vital Signs Temperature 97.2 F L 07/23/18 09:24 Pulse Rate 79 07/23/18 09:24 Respiratory Rate 18 07/23/18 09:24 Blood Pressure 136/78 07/23/18 09:24 O2 Sat by Pulse Oximetry (%) Laboratory Last Values WBC 6.2 K/mm3 (4.0-10.0) 07/20/18 07:00 RBC 4.78 M/mm3 (3.60-5.2) 07/20/18 07:00 Hgb 13.3 GM/dL (10.7-15.3) 07/20/18 07:00 Hct 41.9 % (32.4-45.2) 07/20/18 07:00 MCV 87.6 fl (80-96) 07/20/18 07:00 MCH 27.8 pg (25.7-33.7) 07/20/18 07:00 MCHC 31.7 g/dl (32.0-36.0) L 07/20/18 07:00 RDW 16.0 % (11.6-15.6) H 07/20/18 07:00 Plt Count 218 K/MM3 (134-434) 07/20/18 07:00 MPV 9.6 fl (7.5-11.1) 07/20/18 07:00 Sodium 140 mmol/L (136-145) 07/20/18 07:00 Potassium 4.2 mmol/L (3.5-5.1) 07/21/18 07:30 Chloride 100 mmol/L (98-107) 07/20/18 07:00 Carbon Dioxide 29 mmol/L (21-32) 07/20/18 07:00 Anion Gap 11 MMOL/L (8-16) 07/20/18 07:00 BUN 12 mg/dL (7-18) 07/20/18 07:00 Creatinine 0.8 mg/dL (0.55-1.3) 07/20/18 07:00 Creat Clearance w eGFR > 60 (>60) 07/20/18 07:00 Random Glucose 88 mg/dL (74-106) 07/20/18 07:00 Calcium 8.6 mg/dL (8.5-10.1) 07/20/18 07:00 Total Bilirubin 0.4 mg/dL (0.2-1) 07/20/18 07:00 AST 20 U/L (15-37) 07/20/18 07:00 ALT 17 U/L (13-61) 07/20/18 07:00 Alkaline Phosphatase 64 U/L (45-117) 07/20/18 07:00 Total Protein 6.9 g/dl (6.4-8.2) 07/20/18 07:00 Albumin 3.5 g/dl (3.4-5.0) 07/20/18 07:00 Urine Color Yellow 07/20/18 07:00 Urine Appearance Clear 07/20/18 07:00 Urine pH 6.0 (5.0-8.0) 07/20/18 07:00 Ur Specific [place] 1.023 (1.010-1.035) 07/20/18 07:00 Urine Protein Negative (NEGATIVE) 07/20/18 07:00 Urine Glucose (UA) Negative (NEGATIVE) 07/20/18 07:00 Urine Ketones Negative (NEGATIVE) 07/20/18 07:00 Urine Blood Negative (NEGATIVE) 07/20/18 07:00 Urine Nitrite Negative (NEGATIVE) 07/20/18 07:00 Urine Bilirubin Negative (<2.0 mg/dL) 07/20/18 07:00 Urine Urobilinogen 2.0 mg/dL (0.2-1.0) H 07/20/18 07:00 Ur Leukocyte Esterase Negative (NEGATIVE) 07/20/18 07:00 RPR Titer Nonreactive (NONREACTIVE) 07/20/18 07:00 HIV 1&2 Antibody Screen Negative 07/20/18 07:00 HIV P24 Antigen Negative 07/20/18 07:00 lab noted Assessment: 07/23/18 09:59 mild withdrawal sx Plan: medically supervised detox
[2018-07-23] MEDS ORDERED: METHADONE HCL 10 MG TABLET (FOR DETOX USE ONLY) PO SCH (10:00)
[2018-07-23] MEDS: amLODIPine BESYLATE 10 MG TABLET (FP) PO SCH (10:05)
[2018-07-23] MEDS: ASPIRIN 81 MG CHEWABLE TABLETS PO SCH (10:05)
[2018-07-23] MEDS: LOSARTAN 50MG/HCTZ 12.5MG 1 TAB (FP) PO SCH (10:06)
[2018-07-23] MEDS: PRENATAL VITAMINS W/ FOLIC ACID TABLET (FP) PO SCH (10:06)
[2018-07-23] MEDS: POTASSIUM CHLORIDE TABS 20 MEQ TABLET.ER (FP) PO SCH ×2 (10:06→22:12)
[2018-07-23] MEDS: TIOTROPIUM BROMIDE 2.5 MCG (SPIRIVA) RESPIMAT INHALER IH SCH (10:07)
[2018-07-23] MEDS: BUDESONIDE/FORMETEROL FUMARATE 80/4.5 mcg INHALER IH SCH ×2 (10:07→22:12)
[2018-07-23] MEDS: MONTELUKAST NA 10 MG TABLET PO SCH (22:11)
[2018-07-23] MEDS: BENZTROPINE MESYLATE 1 MG TABLET (FP) PO SCH (22:11)
[2018-07-23] MEDS: risperiDONE 1 MG TABLET (FP) PO SCH (22:11)
[2018-07-23] MEDS: THIAMINE HCL 100 MG TABLET (FP) PO SCH (22:12)
[2018-07-23] MEDS: ALBUTEROL SO4 8 GM HFA INHALER IH PRN (22:13)
[2018-07-24] MEDS ORDERED: METHADONE HCL 5 MG TABLET (FOR DETOX USE ONLY) PO SCH (06:00)
[2018-07-24] MEDS: PRENATAL VITAMINS W/ FOLIC ACID TABLET (FP) PO SCH (09:05)
[2018-07-24] MEDS: ASPIRIN 81 MG CHEWABLE TABLETS PO SCH (09:05)
[2018-07-24] MEDS: LOSARTAN 50MG/HCTZ 12.5MG 1 TAB (FP) PO SCH (09:05)
[2018-07-24] MEDS: POTASSIUM CHLORIDE TABS 20 MEQ TABLET.ER (FP) PO SCH (09:05)
[2018-07-24] MEDS: amLODIPine BESYLATE 10 MG TABLET (FP) PO SCH (09:05)
[2018-07-24] MEDS: BUDESONIDE/FORMETEROL FUMARATE 80/4.5 mcg INHALER IH SCH (09:06)
[2018-07-24] MEDS: TIOTROPIUM BROMIDE 2.5 MCG (SPIRIVA) RESPIMAT INHALER IH SCH (09:06)
[2018-07-24 09:13] VITALS: BP 155/72; PULSE 82; TEMP 97.7
--- NOTE | 2018-07-24 10:34 | DS ---
[facility] Detox Discharge Summary Admission Date: 07/19/18 Discharge Date: 07/24/18 - History Present History: Alcohol Dependence, Opioid Dependence Additional Comments: 58 years old female admitted on 07/19/18 for alcohol and opiate withdrawal sx completed detox regiment tolerated well denies alcohol and opiate withdrawal sx alert oriented x 3 no acute distress aftercare [facility] - Physical Exam Results Vital Signs: Vital Signs Temperature 97.7 F 07/24/18 09:12 Pulse Rate 82 07/24/18 09:12 Respiratory Rate 16 07/24/18 09:12 Blood Pressure 155/72 07/24/18 09:12 O2 Sat by Pulse Oximetry (%) Pertinent Admission Physical Exam Findings: alcohol and opiate withdrawal sx Vital Signs Temperature 97.7 F 07/24/18 09:12 Pulse Rate 82 07/24/18 09:12 Respiratory Rate 16 07/24/18 09:12 Blood Pressure 155/72 07/24/18 09:12 O2 Sat by Pulse Oximetry (%) Laboratory Last Values WBC 6.2 K/mm3 (4.0-10.0) 07/20/18 07:00 RBC 4.78 M/mm3 (3.60-5.2) 07/20/18 07:00 Hgb 13.3 GM/dL (10.7-15.3) 07/20/18 07:00 Hct 41.9 % (32.4-45.2) 07/20/18 07:00 MCV 87.6 fl (80-96) 07/20/18 07:00 MCH 27.8 pg (25.7-33.7) 07/20/18 07:00 MCHC 31.7 g/dl (32.0-36.0) L 07/20/18 07:00 RDW 16.0 % (11.6-15.6) H 07/20/18 07:00 Plt Count 218 K/MM3 (134-434) 07/20/18 07:00 MPV 9.6 fl (7.5-11.1) 07/20/18 07:00 Sodium 140 mmol/L (136-145) 07/20/18 07:00 Potassium 4.2 mmol/L (3.5-5.1) 07/21/18 07:30 Chloride 100 mmol/L (98-107) 07/20/18 07:00 Carbon Dioxide 29 mmol/L (21-32) 07/20/18 07:00 Anion Gap 11 MMOL/L (8-16) 07/20/18 07:00 BUN 12 mg/dL (7-18) 07/20/18 07:00 Creatinine 0.8 mg/dL (0.55-1.3) 07/20/18 07:00 Creat Clearance w eGFR > 60 (>60) 07/20/18 07:00 Random Glucose 88 mg/dL (74-106) 07/20/18 07:00 Calcium 8.6 mg/dL (8.5-10.1) 07/20/18 07:00 Total Bilirubin 0.4 mg/dL (0.2-1) 07/20/18 07:00 AST 20 U/L (15-37) 07/20/18 07:00 ALT 17 U/L (13-61) 07/20/18 07:00 Alkaline Phosphatase 64 U/L (45-117) 07/20/18 07:00 Total Protein 6.9 g/dl (6.4-8.2) 07/20/18 07:00 Albumin 3.5 g/dl (3.4-5.0) 07/20/18 07:00 Urine Color Yellow 07/20/18 07:00 Urine Appearance Clear 07/20/18 07:00 Urine pH 6.0 (5.0-8.0) 07/20/18 07:00 Ur Specific [place] 1.023 (1.010-1.035) 07/20/18 07:00 Urine Protein Negative (NEGATIVE) 07/20/18 07:00 Urine Glucose (UA) Negative (NEGATIVE) 07/20/18 07:00 Urine Ketones Negative (NEGATIVE) 07/20/18 07:00 Urine Blood Negative (NEGATIVE) 07/20/18 07:00 Urine Nitrite Negative (NEGATIVE) 07/20/18 07:00 Urine Bilirubin Negative (<2.0 mg/dL) 07/20/18 07:00 Urine Urobilinogen 2.0 mg/dL (0.2-1.0) H 07/20/18 07:00 Ur Leukocyte Esterase Negative (NEGATIVE) 07/20/18 07:00 RPR Titer Nonreactive (NONREACTIVE) 07/20/18 07:00 HIV 1&2 Antibody Screen Negative 07/20/18 07:00 HIV P24 Antigen Negative 07/20/18 07:00 lab noted patient prefer [facility] for rehab - Treatment Hospital Course: Detox Protocol Followed, Detoxed Safely, Responded well, Discharged Condition Good, Rehab Referral Accepted Patient has Accepted a Rehab Referral to: [facility] - Medication Discharge Medications: Ambulatory Orders hydrOXYzine PAMOATE [Vistaril -] 25 mg PO Q4H PRN #60 capsule 03/27/18 Tiotropium [place] [Spiriva] 1 puff IH DAILY #1 cap 03/30/18 Aspirin [ASA -] 81 mg PO DAILY 03/31/18 Benztropine Mesylate [Cogentin -] 0.5 mg PO HS #30 tablet 07/20/18 Risperidone [Risperdal -] 1 mg PO HS #30 tablet 07/20/18 Albuterol Sulfate Inhaler - [Ventolin HFA Inhaler -] 2 puff IH Q4H PRN #1 inhaler 07/23/18 Amlodipine Besylate [Norvasc -] 10 mg PO DAILY #14 tablet 07/23/18 Budesonide/Formeterol Fumarate [SYMBICORT 80/4.5mcg -] 2 inh IH BID #1 canister 07/23/18 Losartan/Hydrochlorothiazide [Hyzaar 50-12.5 Tablet] 1 each PO DAILY #14 tablet 07/23/18 Montelukast Na [Singulair -] 10 mg PO HS #30 tablet 07/23/18 - Diagnosis (1) Alcohol dependence with uncomplicated withdrawal Current Visit: Yes Status: Acute (2) Opioid dependence with withdrawal Current Visit: Yes Status: Acute (3) COPD (chronic obstructive pulmonary disease) with emphysema Current Visit: Yes Status: Chronic Qualifiers: Emphysema type: panlobular Qualified Code(s): J43.1 - Panlobular emphysema (4) Hypertension Current Visit: Yes Status: Chronic Qualifiers: Hypertension type: essential hypertension Qualified Code(s): I10 - Essential (primary) hypertension (5) PPD positive, treated Current Visit: Yes Status: Resolved (6) Nicotine dependence Current Visit: Yes Status: Acute Qualifiers: Nicotine product type: cigarettes Substance use status: in withdrawal Qualified Code(s): F17.213 - Nicotine dependence, cigarettes, with withdrawal (7) Substance induced mood disorder Current Visit: Yes Status: Suspected (8) Asthma Current Visit: Yes Status: Chronic Qualifiers: Asthma severity: moderate Asthma persistence: persistent Asthma complication type: uncomplicated Qualified Code(s): J45.40 - Moderate persistent asthma, uncomplicated - AMA Did Patient Leave Against Medical Advice: No
== END 2018-07-24 12:05 | disposition other institution (70) | DRG 773 ==
LOC: YASAS 15:18 → Y6N 18:26
PROC: HZ2ZZZZ Detoxification Services for Substance Abuse Treatment (ICD-10-PCS; principal; 2018-07-19)
DX: F11.23 Opioid dependence with withdrawal (principal); F10.230 Alcohol dependence with withdrawal, uncomplicated; F14.20 Cocaine dependence, uncomplicated; F17.213 Nicotine dependence, cigarettes, with withdrawal; F19.24 Other psychoactive substance dependence with psychoactive substance-induced mood disorder; F25.0 Schizoaffective disorder, bipolar type; I10 Essential (primary) hypertension; J43.1 Panlobular emphysema; J45.40 Moderate persistent asthma, uncomplicated; J06.9 Acute upper respiratory infection, unspecified; R76.11 Nonspecific reaction to tuberculin skin test without active tuberculosis; E78.00 Pure hypercholesterolemia, unspecified; Z91.14 Patient's other noncompliance with medication regimen
CPT/HCPCS: 36415; 80053; 81003; 84132; 85027; 86593; 87389; 93005; 93010; 94640; J2794

== ENCOUNTER 2018-07-24 12:03 | Inpatient (IN) | payer OTHER ==
--- NOTE | 2018-07-24 10:47 | HP ---
[facility] Rehab Assess/Revision - Admission History Admitted to Rehab from: [facility] Date of Admission to Rehab: 07/24/18 - Findings Detox History & Physical reviewed: Yes Concur with findings: Yes Comments/Additional Findings: transferred from detox to rehab admission as per protocol Inpatient Rehab Admission - Initial Determination Are CD services needed?: Yes Free of communicable disease: Yes Not in need of hospitalization: Yes - Rehab Admission Criteria Previous failed treatment: Yes Poor recovery environment: Yes Comorbidities: Yes Lacks judgement: No Patient is meeting Inpatient Rehab admission criteria:: Yes
[~2018-07-24 12:03] MED LIST: IBUPROFEN 400 MG TABLET (FP) PO PRN; LOPERAMIDE HCL 2 MG CAPSULE PO PRN; MAG HYDROX/AL HYDROX/SIMETH 30 ML UNIT-DOSE CUP PO PRN; MAGNESIUM CITRATE 300 ML BOTTLE PO PRN; MAGNESIUM HYDROX 2400MG/30ML ORAL SUSPENSION 30 ML CUP PO PRN; MENTHOL/PHENOL 1 EACH UD MM PRN; NICOTINE 14 MG/24 HOURS TOPICAL PATCH TD PRN; NICOTINE POLACRILEX 2 MG GUM BUC PRN; P-EPHED 60MG/TRIPROLIDI 2.5MG TABLET PO PRN; guaiFENesin/D-METHORPHAN HB 10 ML UNIT-DOSE CUPS PO PRN
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
[2018-07-24] MEDS: MELATONIN 5 MG TABLETS PO PRN (21:21)
[2018-07-24] MEDS: THIAMINE HCL 100 MG TABLET (FP) PO SCH (21:21)
[2018-07-25] MEDS: PRENATAL VITAMINS W/ FOLIC ACID TABLET (FP) PO SCH (10:34)
[2018-07-25] MEDS ORDERED: ALBUTEROL SO4 2.5/IPRATROPIUM 0.5 INH SOL 3 ML VIAL.NEB. NEB PRN ×2 (11:32→13:25)
[2018-07-25] MEDS ORDERED: ALBUTEROL SO4 8 GM HFA INHALER IH PRN (13:25)
[2018-07-25] MEDS: ASPIRIN 81 MG CHEWABLE TABLETS PO SCH (14:15)
[2018-07-25] MEDS: TIOTROPIUM BROMIDE 2.5 MCG (SPIRIVA) RESPIMAT INHALER IH SCH (15:19)
[2018-07-25] MEDS: THIAMINE HCL 100 MG TABLET (FP) PO SCH (21:33)
[2018-07-25] MEDS: MONTELUKAST NA 10 MG TABLET PO SCH (21:35)
[2018-07-25] MEDS: BUDESONIDE/FORMETEROL FUMARATE 80/4.5 mcg INHALER IH SCH (21:36)
[2018-07-26] MEDS ORDERED: PATIENT'S OWN MEDICATION (NON-FORMULARY) (Tiotropium Bromide [Spiriva] 1 PUFF) IH SCH (10:00)
[2018-07-26] MEDS: LOSARTAN 50MG/HCTZ 12.5MG 1 TAB (FP) PO SCH (10:20)
[2018-07-26] MEDS: PRENATAL VITAMINS W/ FOLIC ACID TABLET (FP) PO SCH (10:20)
[2018-07-26] MEDS: ASPIRIN 81 MG CHEWABLE TABLETS PO SCH (10:20)
[2018-07-26] MEDS: amLODIPine BESYLATE 10 MG TABLET (FP) PO SCH (10:20)
[2018-07-26] MEDS: BUDESONIDE/FORMETEROL FUMARATE 80/4.5 mcg INHALER IH SCH ×2 (10:21→21:47)
[2018-07-26] MEDS: TIOTROPIUM BROMIDE 2.5 MCG (SPIRIVA) RESPIMAT INHALER IH SCH (10:21)
[2018-07-26] MEDS ORDERED: diphenhydrAMINE HCL 25 MG CAPSULE (FP) PO ONE (19:26)
[2018-07-26] MEDS: THIAMINE HCL 100 MG TABLET (FP) PO SCH (21:46)
[2018-07-26] MEDS: MONTELUKAST NA 10 MG TABLET PO SCH (21:47)
[2018-07-26] MEDS: diphenhydrAMINE HCL 50 MG CAPSULE PO PRN (21:48)
[2018-07-27] MEDS ORDERED: PT OWN MED DRAWER 7, Y5N ONE ×2 (08:35→10:52)
[2018-07-27] MEDS: ASPIRIN 81 MG CHEWABLE TABLETS PO SCH (10:15)
[2018-07-27] MEDS: LOSARTAN 50MG/HCTZ 12.5MG 1 TAB (FP) PO SCH (10:16)
[2018-07-27] MEDS: PRENATAL VITAMINS W/ FOLIC ACID TABLET (FP) PO SCH (10:16)
[2018-07-27] MEDS: amLODIPine BESYLATE 10 MG TABLET (FP) PO SCH (10:16)
[2018-07-27] MEDS: TIOTROPIUM BROMIDE 2.5 MCG (SPIRIVA) RESPIMAT INHALER IH SCH (10:17)
[2018-07-27] MEDS: BUDESONIDE/FORMETEROL FUMARATE 80/4.5 mcg INHALER IH SCH ×2 (10:17→21:28)
[2018-07-27] MEDS ORDERED: COLLOIDAL OATMEAL 1 BAR EACH TP PRN (11:26)
--- NOTE | 2018-07-27 11:31 | PN ---
S Progress Note Note: PATIENT EVALUATED FOR C/O LEFT EYE DISCHARGE. PATIENT STATES SHE HAS CONGENTIAL NYSTAGMUS AND HAD CATARACT SURGERY A FEW MONTHS AGO. PATIENT STATES SHE ONLY HAS D/C IN THE MORNING AND DENIES ITCHING AND REDNESS OF LEFT EYE. C/O RASH TO FEET AND DRY SKIN. Vital Signs Temperature 97.8 F 07/27/18 06:00 Pulse Rate 65 07/27/18 09:17 Respiratory Rate 18 07/27/18 09:17 Blood Pressure 133/78 07/27/18 09:17 O2 Sat by Pulse Oximetry (%) PE: SKIN + DRY CRACK SKIN IN BETWEEN TOES EYES: LEFT EYE +PERRLA, NO REDNESS OR D/C PRESENT ALERT AND ORIENTED AMB AD ARI A/P: DRY SKIN ATHLETES FOOT WILL START TINACTIN AVEENO SOAP EUCERIN CREAM CONTINUE TO MONITOR
[2018-07-27] MEDS: TOLNAFTATE 1% CREAM 15 GM TUBE TP SCH ×2 (13:00→21:31)
[2018-07-27] MEDS: MINERAL OIL/PETROLAT/WATER TOPICAL CREAM 113 GM JAR TP PRN (13:37)
[2018-07-27] MEDS: MONTELUKAST NA 10 MG TABLET PO SCH (21:27)
[2018-07-27] MEDS: THIAMINE HCL 100 MG TABLET (FP) PO SCH (21:27)
[2018-07-27] MEDS: risperiDONE 2 MG TABLET PO SCH (21:29)
[2018-07-27] MEDS: diphenhydrAMINE HCL 50 MG CAPSULE PO PRN (21:30)
[2018-07-27] MEDS: BENZTROPINE MESYLATE 1 MG TABLET (FP) PO SCH (21:30)
[2018-07-28] MEDS: LOSARTAN 50MG/HCTZ 12.5MG 1 TAB (FP) PO SCH (10:13)
[2018-07-28] MEDS: PRENATAL VITAMINS W/ FOLIC ACID TABLET (FP) PO SCH (10:13)
[2018-07-28] MEDS: amLODIPine BESYLATE 10 MG TABLET (FP) PO SCH (10:13)
[2018-07-28] MEDS: ASPIRIN 81 MG CHEWABLE TABLETS PO SCH (10:13)
[2018-07-28] MEDS: BUDESONIDE/FORMETEROL FUMARATE 80/4.5 mcg INHALER IH SCH ×2 (10:14→21:16)
[2018-07-28] MEDS: TIOTROPIUM BROMIDE 2.5 MCG (SPIRIVA) RESPIMAT INHALER IH SCH (10:14)
[2018-07-28] MEDS: TOLNAFTATE 1% CREAM 15 GM TUBE TP SCH ×2 (10:14→21:18)
--- NOTE | 2018-07-28 10:15 | PN ---
[facility] Progress Note (SOAP) Subjective: Pt requesting to be on suboxone for withdrawal/cravings. Pt states having cravings and has feelings of anxiety. Long h/o opioid use, recently finished detox Objective: 07/28/18 10:15 Vital Signs - 24 hr 07/28/18 07/28/18 07/28/18 00:30 03:30 07:08 Temperature 98.0 F Pulse Rate 100 H Respiratory 18 18 Rate Blood Pressure 143/88 07/28/18 10:13 Temperature Pulse Rate 96 H Respiratory Rate Blood Pressure 106/71 A/p: s/p opioid detox- will start Suboxone, pt to d/w counselor re f/u at discharge
[2018-07-28] MEDS: BUPRENORPHINE/NALOXONE 8 MG/2 MG FILM PACKET SL SCH (12:04)
[2018-07-28] MEDS ORDERED: PT OWN MED DRAWER 7, Y5N ONE (20:34)
[2018-07-28] MEDS: BENZTROPINE MESYLATE 1 MG TABLET (FP) PO SCH (21:16)
[2018-07-28] MEDS: diphenhydrAMINE HCL 50 MG CAPSULE PO PRN (21:16)
[2018-07-28] MEDS: MONTELUKAST NA 10 MG TABLET PO SCH (21:16)
[2018-07-28] MEDS: risperiDONE 2 MG TABLET PO SCH (21:16)
[2018-07-28] MEDS: THIAMINE HCL 100 MG TABLET (FP) PO SCH (21:16)
[2018-07-29] MEDS: TIOTROPIUM BROMIDE 2.5 MCG (SPIRIVA) RESPIMAT INHALER IH SCH (10:24)
[2018-07-29] MEDS: BUDESONIDE/FORMETEROL FUMARATE 80/4.5 mcg INHALER IH SCH ×2 (10:24→21:31)
[2018-07-29] MEDS: BUPRENORPHINE/NALOXONE 8 MG/2 MG FILM PACKET SL SCH (10:24)
[2018-07-29] MEDS: ASPIRIN 81 MG CHEWABLE TABLETS PO SCH (10:25)
[2018-07-29] MEDS: PRENATAL VITAMINS W/ FOLIC ACID TABLET (FP) PO SCH (10:25)
[2018-07-29] MEDS: LOSARTAN 50MG/HCTZ 12.5MG 1 TAB (FP) PO SCH (10:25)
[2018-07-29] MEDS: TOLNAFTATE 1% CREAM 15 GM TUBE TP SCH ×2 (10:25→21:31)
[2018-07-29] MEDS: amLODIPine BESYLATE 10 MG TABLET (FP) PO SCH (10:25)
[2018-07-29] MEDS: THIAMINE HCL 100 MG TABLET (FP) PO SCH (21:30)
[2018-07-29] MEDS: MONTELUKAST NA 10 MG TABLET PO SCH (21:30)
[2018-07-29] MEDS: risperiDONE 2 MG TABLET PO SCH (21:30)
[2018-07-29] MEDS: diphenhydrAMINE HCL 50 MG CAPSULE PO PRN (21:31)
[2018-07-29] MEDS: BENZTROPINE MESYLATE 1 MG TABLET (FP) PO SCH (21:32)
[2018-07-30] MEDS: LOSARTAN 50MG/HCTZ 12.5MG 1 TAB (FP) PO SCH (10:02)
[2018-07-30] MEDS: ASPIRIN 81 MG CHEWABLE TABLETS PO SCH (10:02)
[2018-07-30] MEDS: amLODIPine BESYLATE 10 MG TABLET (FP) PO SCH (10:02)
[2018-07-30] MEDS: PRENATAL VITAMINS W/ FOLIC ACID TABLET (FP) PO SCH (10:02)
[2018-07-30] MEDS: TIOTROPIUM BROMIDE 2.5 MCG (SPIRIVA) RESPIMAT INHALER IH SCH (10:03)
[2018-07-30] MEDS: BUDESONIDE/FORMETEROL FUMARATE 80/4.5 mcg INHALER IH SCH ×2 (10:03→21:37)
[2018-07-30] MEDS: BUPRENORPHINE/NALOXONE 8 MG/2 MG FILM PACKET SL SCH (10:03)
[2018-07-30] MEDS: TOLNAFTATE 1% CREAM 15 GM TUBE TP SCH ×2 (10:04→21:37)
[2018-07-30] MEDS ORDERED: PT OWN MED DRAWER 7, Y5N ONE (10:35)
[2018-07-30] MEDS: ACETAMINOPHEN 325 MG TABLET (FP) PO PRN (13:48)
[2018-07-30] MEDS: THIAMINE HCL 100 MG TABLET (FP) PO SCH (21:35)
[2018-07-30] MEDS: BENZTROPINE MESYLATE 1 MG TABLET (FP) PO SCH (21:35)
[2018-07-30] MEDS: risperiDONE 2 MG TABLET PO SCH (21:35)
[2018-07-30] MEDS: MONTELUKAST NA 10 MG TABLET PO SCH (21:35)
[2018-07-30] MEDS: diphenhydrAMINE HCL 50 MG CAPSULE PO PRN (21:35)
[2018-07-31] MEDS: PRENATAL VITAMINS W/ FOLIC ACID TABLET (FP) PO SCH (10:24)
[2018-07-31] MEDS: ASPIRIN 81 MG CHEWABLE TABLETS PO SCH (10:24)
[2018-07-31] MEDS: amLODIPine BESYLATE 10 MG TABLET (FP) PO SCH (10:24)
[2018-07-31] MEDS: LOSARTAN 50MG/HCTZ 12.5MG 1 TAB (FP) PO SCH (10:24)
[2018-07-31] MEDS: TOLNAFTATE 1% CREAM 15 GM TUBE TP SCH ×2 (10:25→22:35)
[2018-07-31] MEDS: TIOTROPIUM BROMIDE 2.5 MCG (SPIRIVA) RESPIMAT INHALER IH SCH (10:25)
[2018-07-31] MEDS: BUDESONIDE/FORMETEROL FUMARATE 80/4.5 mcg INHALER IH SCH ×2 (10:25→21:13)
[2018-07-31] MEDS: BUPRENORPHINE/NALOXONE 8 MG/2 MG FILM PACKET SL SCH (10:25)
[2018-07-31] MEDS ORDERED: PT OWN MED DRAWER 7, Y5N ONE (19:33)
[2018-07-31] MEDS: risperiDONE 2 MG TABLET PO SCH (21:13)
[2018-07-31] MEDS: MONTELUKAST NA 10 MG TABLET PO SCH (21:13)
[2018-07-31] MEDS: BENZTROPINE MESYLATE 1 MG TABLET (FP) PO SCH (21:13)
[2018-07-31] MEDS: THIAMINE HCL 100 MG TABLET (FP) PO SCH (21:14)
[2018-07-31] MEDS: MELATONIN 5 MG TABLETS PO PRN (21:15)
[2018-07-31] MEDS: diphenhydrAMINE HCL 50 MG CAPSULE PO PRN (21:16)
[2018-08-01] MEDS: BUPRENORPHINE/NALOXONE 8 MG/2 MG FILM PACKET SL SCH (10:23)
[2018-08-01] MEDS: PRENATAL VITAMINS W/ FOLIC ACID TABLET (FP) PO SCH (10:23)
[2018-08-01] MEDS: TIOTROPIUM BROMIDE 2.5 MCG (SPIRIVA) RESPIMAT INHALER IH SCH (10:24)
[2018-08-01] MEDS: LOSARTAN 50MG/HCTZ 12.5MG 1 TAB (FP) PO SCH (10:24)
[2018-08-01] MEDS: BUDESONIDE/FORMETEROL FUMARATE 80/4.5 mcg INHALER IH SCH ×2 (10:24→21:43)
[2018-08-01] MEDS: amLODIPine BESYLATE 10 MG TABLET (FP) PO SCH (10:24)
[2018-08-01] MEDS: ASPIRIN 81 MG CHEWABLE TABLETS PO SCH (10:24)
[2018-08-01] MEDS: TOLNAFTATE 1% CREAM 15 GM TUBE TP SCH ×2 (10:25→21:44)
[2018-08-01] MEDS: ACETAMINOPHEN 325 MG TABLET (FP) PO PRN (11:10)
--- NOTE | 2018-08-01 12:22 | PN ---
S Progress Note Note: CALLED TO SEE PT WHO REPORTS A TABLE FELL ON HER RIGHT LOWER LEG WHILE MOVING TABLE IN THE DAY ROOM. PT REPORTS PAIN TO AREA BUT DENIES DIFFICULTY WITH AMBULATION. ALERT O X 3. NAD. Vital Signs 08/01/18 08/01/18 08/01/18 06:58 10:28 11:10 Temperature 97.7 F 97.7 F Pulse Rate 71 78 65 Respiratory 18 18 17 Rate Blood Pressure 150/79 120/75 127/75 RIGHT LOWER LEG: PAIN TO RIGHT LATERAL KNEE/UPPER CALF AREA ON PALPATION. NO PAIN ON ROM. NO REDNESS OR APPRECIABLE SWELLING NOTED. PLAN:MOTRIN PRN DIRECTED FOR PAIN XRAY RIGHT KNEE IN A.M TO R/O FX.
[2018-08-01] MEDS: diphenhydrAMINE HCL 50 MG CAPSULE PO PRN (21:28)
[2018-08-01] MEDS: MONTELUKAST NA 10 MG TABLET PO SCH (21:28)
[2018-08-01] MEDS: THIAMINE HCL 100 MG TABLET (FP) PO SCH (21:28)
[2018-08-01] MEDS: BENZTROPINE MESYLATE 1 MG TABLET (FP) PO SCH (21:28)
[2018-08-01] MEDS: MELATONIN 5 MG TABLETS PO PRN (21:28)
[2018-08-01] MEDS: risperiDONE 2 MG TABLET PO SCH (21:43)
[2018-08-02] MEDS: ASPIRIN 81 MG CHEWABLE TABLETS PO SCH (10:01)
[2018-08-02] MEDS: TOLNAFTATE 1% CREAM 15 GM TUBE TP SCH ×2 (10:02→21:31)
[2018-08-02] MEDS: BUDESONIDE/FORMETEROL FUMARATE 80/4.5 mcg INHALER IH SCH ×2 (10:02→21:31)
[2018-08-02] MEDS: LOSARTAN 50MG/HCTZ 12.5MG 1 TAB (FP) PO SCH (10:02)
[2018-08-02] MEDS: PRENATAL VITAMINS W/ FOLIC ACID TABLET (FP) PO SCH (10:02)
[2018-08-02] MEDS: amLODIPine BESYLATE 10 MG TABLET (FP) PO SCH (10:02)
[2018-08-02] MEDS: BUPRENORPHINE/NALOXONE 8 MG/2 MG FILM PACKET SL SCH (10:03)
[2018-08-02] MEDS: TIOTROPIUM BROMIDE 2.5 MCG (SPIRIVA) RESPIMAT INHALER IH SCH (10:03)
[2018-08-02] MEDS: MINERAL OIL/PETROLAT/WATER TOPICAL CREAM 113 GM JAR TP PRN (10:04)
[2018-08-02] MEDS ORDERED: PT OWN MED DRAWER 7, Y5N ONE ×2 (10:24→21:33)
--- NOTE | 2018-08-02 11:38 | PN ---
[facility] Progress Note Note: Vital Signs 08/02/18 08/02/18 08/02/18 03:39 07:00 10:00 Temperature 97.9 F Pulse Rate 67 72 Respiratory 18 18 Rate Blood Pressure 134/79 118/67 Laboratory Tests 08/01/18 07:00 Hep C Ab Diagnostic <0.1 HEP C SCREEN TEST NOTED WNL
[2018-08-02] MEDS: METHYL SALICYLATE/MENTHOL OINT 30 GM TUBE TP SCH ×2 (14:16→21:33)
[2018-08-02] MEDS: MONTELUKAST NA 10 MG TABLET PO SCH (21:30)
[2018-08-02] MEDS: BENZTROPINE MESYLATE 1 MG TABLET (FP) PO SCH (21:30)
[2018-08-02] MEDS: MELATONIN 5 MG TABLETS PO PRN (21:30)
[2018-08-02] MEDS: THIAMINE HCL 100 MG TABLET (FP) PO SCH (21:30)
[2018-08-02] MEDS: risperiDONE 2 MG TABLET PO SCH (21:31)
[2018-08-02] MEDS: diphenhydrAMINE HCL 50 MG CAPSULE PO PRN (21:33)
[2018-08-03] MEDS: ASPIRIN 81 MG CHEWABLE TABLETS PO SCH (09:56)
[2018-08-03] MEDS: BUDESONIDE/FORMETEROL FUMARATE 80/4.5 mcg INHALER IH SCH ×2 (09:57→21:31)
[2018-08-03] MEDS: METHYL SALICYLATE/MENTHOL OINT 30 GM TUBE TP SCH ×2 (09:57→21:32)
[2018-08-03] MEDS: TIOTROPIUM BROMIDE 2.5 MCG (SPIRIVA) RESPIMAT INHALER IH SCH (09:57)
[2018-08-03] MEDS: PRENATAL VITAMINS W/ FOLIC ACID TABLET (FP) PO SCH (09:57)
[2018-08-03] MEDS: amLODIPine BESYLATE 10 MG TABLET (FP) PO SCH (09:57)
[2018-08-03] MEDS: LOSARTAN 50MG/HCTZ 12.5MG 1 TAB (FP) PO SCH (09:57)
[2018-08-03] MEDS: BUPRENORPHINE/NALOXONE 8 MG/2 MG FILM PACKET SL SCH (09:58)
[2018-08-03] MEDS: TOLNAFTATE 1% CREAM 15 GM TUBE TP SCH ×2 (09:58→21:32)
[2018-08-03] MEDS: diphenhydrAMINE HCL 50 MG CAPSULE PO PRN (21:30)
[2018-08-03] MEDS: MONTELUKAST NA 10 MG TABLET PO SCH (21:30)
[2018-08-03] MEDS: THIAMINE HCL 100 MG TABLET (FP) PO SCH (21:30)
[2018-08-03] MEDS: BENZTROPINE MESYLATE 1 MG TABLET (FP) PO SCH (21:30)
[2018-08-03] MEDS: MELATONIN 5 MG TABLETS PO PRN (21:31)
[2018-08-03] MEDS: risperiDONE 2 MG TABLET PO SCH (21:32)
[2018-08-04] MEDS ORDERED: PT OWN MED DRAWER 7, Y5N ONE (09:02)
[2018-08-04] MEDS: amLODIPine BESYLATE 10 MG TABLET (FP) PO SCH (10:40)
[2018-08-04] MEDS: LOSARTAN 50MG/HCTZ 12.5MG 1 TAB (FP) PO SCH (10:40)
[2018-08-04] MEDS: PRENATAL VITAMINS W/ FOLIC ACID TABLET (FP) PO SCH (10:40)
[2018-08-04] MEDS: BUPRENORPHINE/NALOXONE 8 MG/2 MG FILM PACKET SL SCH (10:40)
[2018-08-04] MEDS: ASPIRIN 81 MG CHEWABLE TABLETS PO SCH (10:40)
[2018-08-04] MEDS: TIOTROPIUM BROMIDE 2.5 MCG (SPIRIVA) RESPIMAT INHALER IH SCH (10:41)
[2018-08-04] MEDS: METHYL SALICYLATE/MENTHOL OINT 30 GM TUBE TP SCH ×2 (10:41→21:33)
[2018-08-04] MEDS: TOLNAFTATE 1% CREAM 15 GM TUBE TP SCH ×2 (10:42→21:34)
[2018-08-04] MEDS: BUDESONIDE/FORMETEROL FUMARATE 80/4.5 mcg INHALER IH SCH ×2 (10:42→21:34)
[2018-08-04] MEDS: risperiDONE 2 MG TABLET PO SCH (21:32)
[2018-08-04] MEDS: MONTELUKAST NA 10 MG TABLET PO SCH (21:32)
[2018-08-04] MEDS: diphenhydrAMINE HCL 50 MG CAPSULE PO PRN (21:32)
[2018-08-04] MEDS: BENZTROPINE MESYLATE 1 MG TABLET (FP) PO SCH (21:33)
[2018-08-04] MEDS: MELATONIN 5 MG TABLETS PO PRN (21:33)
[2018-08-04] MEDS: THIAMINE HCL 100 MG TABLET (FP) PO SCH (21:34)
[2018-08-05] MEDS ORDERED: PT OWN MED DRAWER 7, Y5N ONE (09:10)
[2018-08-05] MEDS: LOSARTAN 50MG/HCTZ 12.5MG 1 TAB (FP) PO SCH (09:59)
[2018-08-05] MEDS: PRENATAL VITAMINS W/ FOLIC ACID TABLET (FP) PO SCH (09:59)
[2018-08-05] MEDS: amLODIPine BESYLATE 10 MG TABLET (FP) PO SCH (09:59)
[2018-08-05] MEDS: ASPIRIN 81 MG CHEWABLE TABLETS PO SCH (09:59)
[2018-08-05] MEDS: BUPRENORPHINE/NALOXONE 8 MG/2 MG FILM PACKET SL SCH (10:00)
[2018-08-05] MEDS: TOLNAFTATE 1% CREAM 15 GM TUBE TP SCH ×2 (10:00→22:00)
[2018-08-05] MEDS: TIOTROPIUM BROMIDE 2.5 MCG (SPIRIVA) RESPIMAT INHALER IH SCH (10:01)
[2018-08-05] MEDS: BUDESONIDE/FORMETEROL FUMARATE 80/4.5 mcg INHALER IH SCH ×2 (10:01→21:15)
[2018-08-05] MEDS: METHYL SALICYLATE/MENTHOL OINT 30 GM TUBE TP SCH ×2 (10:01→22:00)
[2018-08-05] MEDS: risperiDONE 2 MG TABLET PO SCH (21:15)
[2018-08-05] MEDS: BENZTROPINE MESYLATE 1 MG TABLET (FP) PO SCH (21:15)
[2018-08-05] MEDS: MONTELUKAST NA 10 MG TABLET PO SCH (21:16)
[2018-08-05] MEDS: diphenhydrAMINE HCL 50 MG CAPSULE PO PRN (21:16)
[2018-08-05] MEDS: THIAMINE HCL 100 MG TABLET (FP) PO SCH (21:16)
[2018-08-05] MEDS: MELATONIN 5 MG TABLETS PO PRN (21:17)
[2018-08-06] MEDS ORDERED: PT OWN MED DRAWER 7, Y5N ONE ×2 (09:14→20:27)
[2018-08-06] MEDS: ASPIRIN 81 MG CHEWABLE TABLETS PO SCH (10:28)
[2018-08-06] MEDS: BUPRENORPHINE/NALOXONE 8 MG/2 MG FILM PACKET SL SCH (10:28)
[2018-08-06] MEDS: BUDESONIDE/FORMETEROL FUMARATE 80/4.5 mcg INHALER IH SCH ×2 (10:29→21:49)
[2018-08-06] MEDS: LOSARTAN 50MG/HCTZ 12.5MG 1 TAB (FP) PO SCH (10:29)
[2018-08-06] MEDS: TOLNAFTATE 1% CREAM 15 GM TUBE TP SCH ×2 (10:29→21:51)
[2018-08-06] MEDS: PRENATAL VITAMINS W/ FOLIC ACID TABLET (FP) PO SCH (10:29)
[2018-08-06] MEDS: TIOTROPIUM BROMIDE 2.5 MCG (SPIRIVA) RESPIMAT INHALER IH SCH (10:29)
[2018-08-06] MEDS: amLODIPine BESYLATE 10 MG TABLET (FP) PO SCH (10:29)
[2018-08-06] MEDS: METHYL SALICYLATE/MENTHOL OINT 30 GM TUBE TP SCH ×2 (10:29→21:51)
--- NOTE | 2018-08-06 16:08 | PN ---
Psychiatric Progress Note Vital Signs: Vital Signs Period Temp Pulse Resp BP Sys/Merritt Pulse Ox Last 24 Hr 97.2 F 51-66 -18 115-128/69-78 Date of Session: 08/06/18 HPI: Patient addressing Alcohol, Opioid and Cocaine Dependence comorbid with Nicotine Dependence and Schizoaffective Disorder ROS: Asthma/COPD, HTN, PPD+ treated, Obesity Current Medications: Active Medications Generic Name Dose Route Start Last Admin Trade Name Freq PRN Reason Stop Dose Admin Acetaminophen 650 mg 07/24/18 10:48 08/01/18 11:10 Tylenol - PO 650 mg Q4H PRN Administration FEVER Al Hydroxide/Mg Hydroxide 30 ml 07/24/18 10:48 Mylanta Oral Suspension - PO Q6H PRN DYSPEPSIA Albuterol Sulfate 2 puff 07/25/18 13:25 07/28/18 21:17 Ventolin Hfa Inhaler - IH 2 puff Q4H PRN Administration SHORT OF BREATH/WHEEZING Amlodipine Besylate 10 mg 07/26/18 10:00 08/06/18 10:29 Norvasc - PO 10 mg DAILY CARLEEN Administration Aspirin 81 mg 07/25/18 13:45 08/06/18 10:28 Asa - PO 81 mg DAILY CARLEEN Administration Benztropine Mesylate 0.5 mg 07/27/18 22:00 08/05/18 21:15 Cogentin - PO 0.5 mg HS CARLEEN Administration Budesonide/Formoterol Fumarate 2 puff 07/25/18 22:00 08/06/18 10:29 Symbicort 80/4.5mcg - IH 2 pfu BID CARLEEN Administration Buprenorphine/Naloxone 1 each 07/28/18 10:30 08/06/18 10:28 Suboxone 8mg/2mg Sl Film - SL 1 each DAILY CRALEEN Administration Colloidal Oatmeal 1 applic 07/27/18 11:26 [place] Soap - TP DAILY PRN HYGEINE Diphenhydramine HCl 50 mg 07/26/18 14:39 08/05/18 21:16 Benadryl - PO 50 mg HS PRN Administration INSOMNIA Eucalyptus/Menthol/Phenol/Sorbitol 1 each 07/24/18 10:48 Cepastat Lozenge - MM Q4H PRN SORE THROAT Guaifenesin 10 ml 07/24/18 10:48 Robitussin Dm - PO Q6H PRN COUGH HCTZ/Losartan Potassium 1 tab 07/26/18 10:00 08/06/18 10:29 Hyzaar - PO 1 tab DAILY CARLEEN Administration Loperamide HCl 4 mg 07/24/18 10:48 Imodium - PO Q6H PRN DIARRHEA Magnesium Citrate 300 ml 07/24/18 10:48 07/27/18 15:46 Citroma - PO 300 ml Q48H PRN Administration CONSTIPATION Magnesium Hydroxide 30 ml 07/24/18 10:48 07/27/18 10:18 Milk Of Magnesia - PO 30 ml DAILY PRN Administration CONSTIPATION Melatonin 5 mg 07/24/18 22:00 08/05/18 21:17 Melatonin PO 5 mg HS PRN Administration INSOMNIA Methyl Salicylate 1 applic 08/02/18 11:45 08/06/18 10:29 Hernán-Mclaughlin - TP Not Given BID CARLEEN Montelukast Sodium 10 mg 07/25/18 22:00 08/05/18 21:16 Singulair - PO 10 mg HS CARLEEN Administration Multi-Ingredient Lotion 1 applic 07/27/18 11:27 08/02/18 10:04 Eucerin (Small Jar) - TP 1 applic BID PRN Administration DRY SKIN Nicotine 14 mg 07/24/18 10:48 Nicoderm Patch - TD DAILY PRN WITHDRAWAL(CONT SUBST) Nicotine Polacrilex 2 mg 07/24/18 10:48 Nicorette Gum - BUC Q2H PRN NICOTINE REPLACEMENT RX Multivit/Folic Acid/Iron 1 tab 07/25/18 10:00 08/06/18 10:29 Vitamins (Sjr) - PO 1 tab DAILY CARLEEN Administration Pseudoephedrine/Triprolidine 1 combo 07/24/18 10:48 Actifed - PO TID PRN NASAL CONGESTION Risperidone 2 mg 07/27/18 22:00 08/05/18 21:15 Risperdal - PO 2 mg HS CARLEEN Administration Thiamine HCl 100 mg 07/24/18 22:00 08/05/18 21:16 Vitamin B1 - PO 100 mg HS CARLEEN Administration Tiotropium [place] 1 puff 07/25/18 15:00 08/06/18 10:29 Spiriva Respimat IH 1 puff DAILY CARLEEN Administration Tolnaftate 1 applic 07/27/18 12:00 08/06/18 10:29 Tinactin 1% Cream - TP Not Given BID CARLEEN Current Side Effect: No Lab tests ordered: Yes Lab tests reviewed: Yes Provider note:: Patient will complete this program on 08/07/18. She has met her treatment goals and will continue to address her issues in outpatient treatment at [facility] at [address] [place] [id number]. 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 She responded well to Risperdal 2 mg po HS and Cogentin 0.5 mg po HS. Scripts fro 30 days supply of medications will be electronically transmitted to [facility] at [address] [place] [address]. She is stable for discharge on 08/07/18 Mental Status Exam - Mental Status Exam Alert and Oriented to: Time, Place, Person Cognitive Function: Fair Patient Appearance: Well Groomed Mood: Hopeful, Euthymic Affect: Appropriate Patient Behavior: Cooperative Speech Pattern: Clear Voice Loudness: Normal Thought Process: Intact, Goal Oriented Thought Disorder: Not Present Hallucinations: Denies Suicidal Ideation: Denies Homicidal Ideation: Denies Insight/Judgement: Fair Sleep: Fair Appetite: Good Muscle strength/Tone: Normal Gait/Station: Normal Psychiatric Treatment Plan - Problem List (1) Alcohol dependence Current Visit: Yes Comment: . (2) Opioid dependence Current Visit: Yes Comment: . (3) Cocaine dependence Current Visit: Yes Qualifiers: Substance use status: uncomplicated Qualified Code(s): F14.20 - Cocaine dependence, uncomplicated Comment: . (4) Nicotine dependence Current Visit: Yes Qualifiers: Nicotine product type: cigarettes Substance use status: in withdrawal Qualified Code(s): F17.213 - Nicotine dependence, cigarettes, with withdrawal Comment: . (5) Schizoaffective disorder Current Visit: Yes Qualifiers: Schizoaffective disorder type: unspecified Qualified Code(s): F25.9 - Schizoaffective disorder, unspecified Comment: As per records.Non compliant with OPD care and medications. (6) Bronchial asthma Current Visit: Yes (7) COPD (chronic obstructive pulmonary disease) with emphysema Current Visit: Yes Qualifiers: Emphysema type: panlobular Qualified Code(s): J43.1 - Panlobular emphysema Comment: . (8) Hypertension Current Visit: Yes Qualifiers: Hypertension type: essential hypertension Qualified Code(s): I10 - Essential (primary) hypertension (9) Obesity Current Visit: Yes Comment: . (10) PPD positive, treated Current Visit: Yes Comment: . Initial treatment plan: Patient will be discharged tomorrow and referred to [facility] in [place] for outpatient treatment
[2018-08-06] MEDS: diphenhydrAMINE HCL 50 MG CAPSULE PO PRN (21:49)
[2018-08-06] MEDS: THIAMINE HCL 100 MG TABLET (FP) PO SCH (21:49)
[2018-08-06] MEDS: MONTELUKAST NA 10 MG TABLET PO SCH (21:49)
[2018-08-06] MEDS: BENZTROPINE MESYLATE 1 MG TABLET (FP) PO SCH (21:51)
[2018-08-06] MEDS: risperiDONE 2 MG TABLET PO SCH (21:51)
[2018-08-07 07:05] VITALS: TEMP 97.7
[2018-08-07] MEDS ORDERED: PT OWN MED DRAWER 7, Y5N ONE (08:50)
[2018-08-07 09:11] VITALS: BP 138/78; PULSE 65
[2018-08-07] MEDS: BUPRENORPHINE/NALOXONE 8 MG/2 MG FILM PACKET SL SCH (09:26)
[2018-08-07] MEDS: LOSARTAN 50MG/HCTZ 12.5MG 1 TAB (FP) PO SCH (09:26)
[2018-08-07] MEDS: TIOTROPIUM BROMIDE 2.5 MCG (SPIRIVA) RESPIMAT INHALER IH SCH (09:26)
[2018-08-07] MEDS: amLODIPine BESYLATE 10 MG TABLET (FP) PO SCH (09:26)
[2018-08-07] MEDS: PRENATAL VITAMINS W/ FOLIC ACID TABLET (FP) PO SCH (09:26)
[2018-08-07] MEDS: ASPIRIN 81 MG CHEWABLE TABLETS PO SCH (09:26)
[2018-08-07] MEDS: BUDESONIDE/FORMETEROL FUMARATE 80/4.5 mcg INHALER IH SCH (09:26)
[2018-08-07] MEDS: TOLNAFTATE 1% CREAM 15 GM TUBE TP SCH (09:27)
[2018-08-07] MEDS: METHYL SALICYLATE/MENTHOL OINT 30 GM TUBE TP SCH (09:27)
--- NOTE | 2018-08-07 09:51 | PN ---
[facility] Progress Note Note: PT DISCHARGING TODAY. PT MET WITH HER COUNSELOR AND HAS BEEN REFERRED TO [facility] AND WILL FOLLOW UP WITH SUBOXONE TREATMENT THERE. SUBOXONE 8 MG/2MG SL #7 SENT TO [facility] FOR PT TO PICKUP. Vital Signs 08/07/18 08/07/18 07:04 09:11 Temperature 97.7 F Pulse Rate 90 65 Respiratory 16 Rate Blood Pressure 145/75 138/78 NAD PLAN:FOLLOW UP WITH AFTERCARE PLAN FOLLOW UP WITH SUBOXONE TREATMENT AT [facility]
== END 2018-08-07 10:10 | disposition home or self-care (01) | DRG 772 ==
LOC: YASAS 12:03 → Y3E 12:07
PROVIDERS: ADMIT Psychiatry & Neurology Psychiatry; ATTEND Psychiatry & Neurology Psychiatry
PROC: HZ42ZZZ Group Counseling for Substance Abuse Treatment, Cognitive-Behavioral (ICD-10-PCS; principal; 2018-07-24)
DX: F11.20 Opioid dependence, uncomplicated (principal); F10.20 Alcohol dependence, uncomplicated; F14.20 Cocaine dependence, uncomplicated; F17.213 Nicotine dependence, cigarettes, with withdrawal; F25.9 Schizoaffective disorder, unspecified; F31.9 Bipolar disorder, unspecified; J43.1 Panlobular emphysema; J45.909 Unspecified asthma, uncomplicated; I10 Essential (primary) hypertension; K21.9 Gastro-esophageal reflux disease without esophagitis; B35.3 Tinea pedis; L85.3 Xerosis cutis; R76.11 Nonspecific reaction to tuberculin skin test without active tuberculosis; E66.9 Obesity, unspecified; Z68.30 Body mass index [BMI] 30.0-30.9, adult; S89.81XA Other specified injuries of right lower leg, initial encounter; W22.8XXA Striking against or struck by other objects, initial encounter; Y93.89 Activity, other specified; Y92.238 Other place in hospital as the place of occurrence of the external cause; Y99.8 Other external cause status
CPT/HCPCS: 36415; 73562-TC-RT-FY; 86803; 94640

== ENCOUNTER 2019-01-23 12:01 | Inpatient (IN) | payer OTHER ==
[2019-01-23 14:45] VITALS: BMI 24.7
--- NOTE | 2019-01-23 15:18 | HP ---
COWS - Scale Resting Pulse: 1= [place] 81-100 Sweatin= Chills/Flushing Restless Observation: 1= Difficult to Sit Still Pupil Size: 1= Pupils >than Normal Bone or Joint Aches: 1= Mild Discomfort Runny Nose/ Eye Tearin= Nasal Congestion GI Upset > 30mins: 1= Stomach Cramp Tremor Observation: 1= Tremor [place], Not Seen Yawning Observation: 1= 1-2x During Session Anxiety or Irritability: 1=Feels Anxious/Irritable Goose Flesh Skin: 3=Piloerection COWS Score: 13 CIWA Score Nausea/Vomitin-Mild Nausea/No Vomiting Muscle Tremors: 2 Anxiety: 4-Mod. Anxious/Guarded Agitation: 7-Pacing/Thrashing Paroxysmal Sweats: 2 Orientation: 0-Oriented Tacttile Disturbances: 0-None Auditory Disturbances: 0-None Visual Disturbances: 0-None Headache: 0-None Present CIWA-Ar Total Score: 16 - Admission Criteria OASAS Guidelines: Admission for Medically Managed Detox: Requires at least one of the followin. CIWA greater than 12 2. Seizures within the past 24 hours 3. Delirium tremens within the past 24 hours 4. Hallucinations within the past 24 hours 5. Acute intervention needed for co occurring medical disorder 6. Acute intervention needed for co occurring psychiatric disorder 7. Severe withdrawal that cannot be handled at a lower level of care (continued vomiting, continued diarrhea, abnormal vital signs) requiring intravenous medication and/or fluids 8. Admission [facility] Chief Complaint: here for alcohol and heroin detox 58 yo with COPD/HTN/asthma here for admission to detox. Pt was last here in 2017, completed rehab and detox, was given Suboxone in rehab- pt never followed up after discharge. States she relpased almost immediately after discharge. Heroin- 10 bags/day, sniffing. No h/o OD. Last use earlier this morning alcohol- 1 pint a liquor, and 4-6 cans of beer/day- last use yesterday- says she ran out of money cocaine- daily smoke $100/day Utox: ariel, fen, opiates, MICHEAL-0 DUR- no recent controlled substances Allergies/Adverse Reactions: Allergies Allergy/AdvReac Type Severity Reaction Status Date / Time zolpidem tartrate Allergy Difficulty Verified 01/23/19 14:24 [From Ambien] Breathing - Ebola screening Have you traveled outside of the country in the last 21 days: No Have you had contact with anyone from an Ebola affected area: No Do you have a fever: No Patient History - Patient Medical History Hx Anemia: No Hx Asthma: Yes Hx Chronic Obstructive Pulmonary Disease (COPD): Yes Hx Cancer: No Hx Cardiac Disorders: No Hx Congestive Heart Failure: No Hx Hypertension: Yes Hx Hypercholesterolemia: Yes (non compliance) Hx Pacemaker: No HX Cerebrovascular Accident: No Hx Seizures: No Hx Dementia: No Hx Diabetes: No Hx Gastrointestinal Disorders: No Hx Liver Disease: No Hx Genitourinary Disorders: No Hx Sexually Transmitted Disorders: No Hx Renal Disease (ESRD): No Hx Thyroid Disease: No Hx Human Immunodeficiency Virus (HIV): No (last 2018 negative) Hx Hepatitis C: No Hx Depression: Yes Hx Suicide Attempt: No Hx Bipolar Disorder: No Hx Schizophrenia: Yes - Patient Surgical History Past Surgical History: Yes Hx Neurologic Surgery: No Hx Cataract Extraction: No Hx Cardiac Surgery: No Hx Lung Surgery: No Hx Breast Surgery: No Hx Breast Biopsy: No Hx Abdominal Surgery: No Hx Appendectomy: No Hx Cholecystectomy: No Hx Genitourinary Surgery: No Hx Section: No Hx Orthopedic Surgery: No Other Surgical History: Dilatation & Curettage 01/2014 Anesthesia Reaction: No - PPD History Results: positive - Reproductive History Last Menstrual Period: 07/19/09 - Smoking Cessation Smoking history: Former smoker Have you smoked in the past 12 months: No Aproximately how many cigarettes per day: 0 If you are a former smoker, when did you quit?: in 2013 Hx Chewing Tobacco Use: No Initiated information on smoking cessation: No - Substance & Tx. History Hx Alcohol Use: Yes Hx Substance Use: Yes Substance Use Type: Alcohol, Cocaine, Heroin, Opiates - Substances abused Heroin Substance route: Inhalation Frequency: Daily Amount used: 10 bags Age of first use: 42 Date of last use: 01/23/19 Alcohol Substance route: Oral Frequency: Daily Amount used: 1 pint of liquor and 6 packs beer Age of first use: 18 Date of last use: 01/22/19 Crack Substance route: Smoking Frequency: Daily Amount used: 100 dollars Age of first use: 31 Date of last use: 01/22/19 Family Disease History - Family Disease History Family Disease History: Diabetes: Mother (chf ), Brother (heroin dependencies 2 brothers ), Heart Disease: Mother, CA: Father ( lungdeceased), Respiratory: Mother, Brother, Other: Brother, Sister (no sister) Admission Physical Exam [facility] - Vital Signs Vital Signs: Vital Signs - 24 hr 01/23/19 01/23/19 14:24 15:03 Temperature 98.0 F 98.0 F Pulse Rate 51 L 51 L Respiratory 16 16 Rate Blood Pressure 142/71 142/71 - Physical General Appearance: Yes: Within Normal Limits, Disheveled, Mild Distress HEENTM: Yes: Within Normal Limits, EOMI, Hearing grossly Normal, Pharynx Normal , Tm's normal Respiratory: Yes: Within Normal Limits, Chest Non-Tender, Lungs Clear Neck: Yes: Within Normal Limits Breast: Yes: Within Normal Limits, Axillae without masses Cardiology: Yes: Within Normal Limits Abdominal: Yes: Within Normal Limits, Normal Bowel Sounds Genitourinary: Yes: Within Normal Limits Back: Yes: Within Normal Limits Musculoskeletal: Yes: Within Normal Limits Extremities: Yes: Within Normal Limits, Normal Capillary Refill, Normal Inspection Neurological: Yes: Within Normal Limits, mercury washer II-XII NML intact, Fully Oriented Integumentary: Yes: Within Normal Limits, Normal Color - Diagnostic (1) Alcohol dependence with uncomplicated withdrawal Current Visit: No Status: Acute (2) Asthma exacerbation Current Visit: No Status: Acute (3) Opioid dependence with withdrawal Current Visit: No Status: Acute (4) Opioid use disorder Current Visit: No Status: Acute (5) Seasonal allergies Current Visit: No Status: Acute (6) Cocaine dependence Current Visit: No Status: Chronic Qualifiers: Substance use status: uncomplicated Qualified Code(s): F14.20 - Cocaine dependence, uncomplicated Comment: . (7) Hypertension Current Visit: No Status: Chronic Qualifiers: Hypertension type: essential hypertension Qualified Code(s): I10 - Essential (primary) hypertension (8) Nicotine dependence Current Visit: No Status: Chronic Qualifiers: Nicotine product type: cigarettes Substance use status: in withdrawal Qualified Code(s): F17.213 - Nicotine dependence, cigarettes, with withdrawal Comment: . (9) Opioid dependence Current Visit: No Status: Chronic Comment: . (10) PPD positive, treated Current Visit: No Status: Resolved Comment: . Breathalyzer - Breathalyzer Breathalyzer: 0 Urine Drug Screen - Test Device Lot number: [id number] Expiration date: 08/18/20 - Control Is test valid?: Yes - Results Drug screen NEGATIVE: No Urine drug screen results: ARIEL-Cocaine, FEN-Fentanyl, MOP-Opiates Inpatient Rehab Admission - Rehab Decision to Admit Inpatient rehab admission?: No
[2019-01-23] MEDS ORDERED: DICYCLOMINE HCL 10 MG CAPSULE PO PRN (15:20)
[2019-01-23] MEDS ORDERED: ONDANSETRON *ODT* 4 MG TABLET SL PRN (15:20)
[2019-01-23] MEDS ORDERED: MAGNESIUM HYDROX 2400MG/30ML ORAL SUSPENSION 30 ML CUP PO PRN (15:20)
[2019-01-23] MEDS ORDERED: MAG HYDROX/AL HYDROX/SIMETH 30 ML UNIT-DOSE CUP PO PRN (15:20)
[2019-01-23] MEDS ORDERED: ACETAMINOPHEN 325 MG TABLET (FP) PO PRN ×2 (15:20)
[2019-01-23] MEDS ORDERED: chlordiazePOXIDE HCL 25 MG CAPSULE PO PRN (15:20)
[2019-01-23] MEDS ORDERED: BISMUTH SUBSALICYLATE 524 MG/30 ML UD PO PRN (15:20)
[2019-01-23] MEDS ORDERED: MELATONIN 5 MG TABLETS PO PRN (15:20)
[2019-01-23] MEDS ORDERED: MAGNESIUM CITRATE 300 ML BOTTLE PO PRN (15:20)
[2019-01-23] MEDS ORDERED: hydrOXYzine PAMOATE 25 MG CAPSULE (FP) PO PRN (15:20)
[2019-01-23] MEDS ORDERED: cloNIDine HCL 0.1 MG TABLET PO PRN (15:20)
[2019-01-23] MEDS ORDERED: chlordiazePOXIDE HCL 25 MG CAPSULE PO ONE (15:20)
[2019-01-23] MEDS ORDERED: METHOCARBAMOL 500 MG TABLET PO PRN (15:20)
[2019-01-23] MEDS ORDERED: MENTHOL/PHENOL 1 EACH UD MM PRN (15:20)
[2019-01-23] MEDS ORDERED: IBUPROFEN 400 MG TABLET (FP) PO PRN (15:20)
[2019-01-23] MEDS ORDERED: IPRATROPIUM IH PRN (15:24)
[2019-01-23] MEDS ORDERED: ALBUTEROL IH PRN (15:24)
[2019-01-23] MEDS ORDERED: ALBUTEROL SO4 8 GM HFA INHALER IH PRN (15:24)
[2019-01-23] MEDS: chlordiazePOXIDE HCL 25 MG CAPSULE PO SCH ×2 (16:43→22:22)
[2019-01-23] MEDS: METHADONE HCL 10 MG TABLET (FOR DETOX USE ONLY) PO ONE ×2 (16:43→18:27)
[2019-01-23 18:30] LABS: URINE APPEARANCE CLEAR; URINE BILIRUBIN NEGATIVE (NEGATIVE); URINE COLOR YELLOW; URINE GLUCOSE (UA) NEGATIVE (NEGATIVE); URINE KETONE NEGATIVE (NEGATIVE); URINE LEUK ESTERASE NEGATIVE (NEGATIVE); URINE NITRITE NEGATIVE (NEGATIVE); URINE PROTEIN NEGATIVE (NEGATIVE)
[2019-01-23] MEDS: BUDESONIDE/FORMETEROL FUMARATE 80/4.5 mcg INHALER IH SCH (22:20)
[2019-01-23] MEDS: THIAMINE HCL 100 MG TABLET (FP) PO SCH (22:20)
[2019-01-23] MEDS: risperiDONE 2 MG TABLET PO SCH (22:21)
[2019-01-23] MEDS: MONTELUKAST NA 10 MG TABLET PO SCH (22:21)
[2019-01-23] MEDS: BENZTROPINE MESYLATE 1 MG TABLET (FP) PO SCH (22:21)
[2019-01-23] MEDS ORDERED: METHADONE HCL 10 MG TABLET (FOR DETOX USE ONLY) PO ONE (23:00)
[2019-01-24] MEDS: chlordiazePOXIDE HCL 25 MG CAPSULE PO SCH ×4 (05:52→22:15)
[2019-01-24] MEDS ORDERED: METHADONE HCL 10 MG TABLET (FOR DETOX USE ONLY) PO ONE (10:00)
[2019-01-24] MEDS: amLODIPine BESYLATE 10 MG TABLET (FP) PO SCH (10:23)
[2019-01-24] MEDS: ASPIRIN 81 MG CHEWABLE TABLETS PO SCH (10:23)
[2019-01-24] MEDS: TIOTROPIUM BROMIDE 2.5 MCG (SPIRIVA) RESPIMAT INHALER IH SCH (10:23)
[2019-01-24] MEDS: PRENATAL VITAMINS W/ FOLIC ACID TABLET (FP) PO SCH (10:23)
[2019-01-24] MEDS: LOSARTAN 50MG/HCTZ 12.5MG 1 TAB (FP) PO SCH (10:23)
[2019-01-24] MEDS: BUDESONIDE/FORMETEROL FUMARATE 80/4.5 mcg INHALER IH SCH ×2 (10:23→22:15)
--- NOTE | 2019-01-24 11:24 | PN ---
[facility] CIWA - CIWA Score Nausea/Vomitin-Mild Nausea/No Vomiting Muscle Tremors: 4-Moderate,w/Arms Extend Anxiety: 3 Agitation: 2 Paroxysmal Sweats: 1-Minimal Palms Moist Orientation: 1-Uncertain about Date Tacttile Disturbances: 0-None Auditory Disturbances: 0-None Visual Disturbances: 0-None Headache: 0-None Present CIWA-Ar Total Score: 12 S COWS - Scale Resting Pulse: 0= [place] 80 or Below Sweatin= Chills/Flushing Restless Observation: 1= Difficult to Sit Still Pupil Size: 0= Normal to Room Light Bone or Joint Aches: 2= Severe Diffuse Aches Runny Nose/ Eye Tearin= Nasal Congestion GI Upset > 30mins: 2= Nausea/Diarrhea Tremor Observation of Outstretched Hands: 2= Slight Tremor Visible Yawning Observation: 1= 1-2x During Session Anxiety or Irritability: 2=Irritable/Anxious Goose Flesh Skin: 0=Smooth Skin COWS Score: 12 [facility] Progress Note (SOAP) Subjective: doing fine with libruim and methadone deox regimen Objective: 01/24/19 11:24 Vital Signs Temperature 98.4 F 01/24/19 10:20 Pulse Rate 54 L 01/24/19 10:20 Respiratory Rate 20 01/24/19 10:20 Blood Pressure 118/69 01/24/19 10:20 O2 Sat by Pulse Oximetry (%) Laboratory Last Values Urine Color Yellow 01/23/19 15:45 Urine Appearance Clear 01/23/19 15:45 Urine pH 7.0 (5.0-8.0) 01/23/19 15:45 Ur Specific [place] 1.019 (1.010-1.035) 01/23/19 15:45 Urine Protein Negative (NEGATIVE) 01/23/19 15:45 Urine Glucose (UA) Negative (NEGATIVE) 01/23/19 15:45 Urine Ketones Negative (NEGATIVE) 01/23/19 15:45 Urine Blood Negative (NEGATIVE) 01/23/19 15:45 Urine Nitrite Negative (NEGATIVE) 01/23/19 15:45 Urine Bilirubin Negative (NEGATIVE) 01/23/19 15:45 Urine Urobilinogen 1.0 mg/dL (0.2-1.0) 01/23/19 15:45 Ur Leukocyte Esterase Negative (NEGATIVE) 01/23/19 15:45 lab noted Assessment: 01/24/19 11:24 withdrawal sx Plan: continue detox
[2019-01-24 12:35] LABS: HEMOGLOBIN 12.3 GM/dL (10.7-15.3); MCH 28.1 pg (25.7-33.7); MCHC 32.5 g/dl (32.0-36.0); MEAN CELL VOLUME 86.3 fl (80-96); MEAN PLT VOLUME 8.9 fl (7.5-11.1); PLATELET COUNT 219 K/MM3 (134-434); WHITE BLOOD COUNT 4.5 K/mm3 (4.0-10.0)
[2019-01-24 13:03] LABS: ALBUMIN 2.8 g/dl (3.4-5.0); ALK PHOS 55 U/L (45-117); ANION GAP 7 MMOL/L (8-16); BILIRUBIN,TOTAL 0.4 mg/dL (0.2-1); BLOOD UREA NITROGEN 8 mg/dL (7-18); CALCIUM 8.5 mg/dL (8.5-10.1); CHLORIDE 104 mmol/L (98-107); CO2 26 mmol/L (21-32); CREATININE 0.7 mg/dL (0.55-1.3); GLUCOSE,RANDOM 74 mg/dL (74-106); POTASSIUM 3.7 mmol/L (3.5-5.1); SGOT/AST 16 U/L (15-37); SGPT/ALT 18 U/L (13-61); SODIUM 137 mmol/L (136-145); TOT PROT 6.2 g/dl (6.4-8.2)
[2019-01-24] MEDS: BENZTROPINE MESYLATE 1 MG TABLET (FP) PO SCH (22:15)
[2019-01-24] MEDS: risperiDONE 2 MG TABLET PO SCH (22:15)
[2019-01-24] MEDS: THIAMINE HCL 100 MG TABLET (FP) PO SCH (22:15)
[2019-01-24] MEDS: MONTELUKAST NA 10 MG TABLET PO SCH (22:15)
[2019-01-25] MEDS: chlordiazePOXIDE HCL 25 MG CAPSULE PO SCH ×2 (05:47→14:33)
[2019-01-25] MEDS ORDERED: METHADONE HCL 10 MG TABLET (FOR DETOX USE ONLY) PO ONE (10:00)
[2019-01-25] MEDS: TIOTROPIUM BROMIDE 2.5 MCG (SPIRIVA) RESPIMAT INHALER IH SCH (10:17)
[2019-01-25] MEDS: BUDESONIDE/FORMETEROL FUMARATE 80/4.5 mcg INHALER IH SCH ×2 (10:17→22:08)
[2019-01-25] MEDS: amLODIPine BESYLATE 10 MG TABLET (FP) PO SCH (10:18)
[2019-01-25] MEDS: ASPIRIN 81 MG CHEWABLE TABLETS PO SCH (10:18)
[2019-01-25] MEDS: LOSARTAN 50MG/HCTZ 12.5MG 1 TAB (FP) PO SCH (10:18)
[2019-01-25] MEDS: PRENATAL VITAMINS W/ FOLIC ACID TABLET (FP) PO SCH (10:18)
[2019-01-25] MEDS: ALBUTEROL SO4 0.083% IH SOL 2.5 MG/3 ML VIAL.NEB. NEB PRN ×2 (10:43→17:54)
--- NOTE | 2019-01-25 11:35 | PN ---
[facility] CIWA - CIWA Score Nausea/Vomitin-Mild Nausea/No Vomiting Muscle Tremors: 2 Anxiety: 2 Agitation: 2 Paroxysmal Sweats: 1-Minimal Palms Moist Orientation: 1-Uncertain about Date Tacttile Disturbances: 0-None Auditory Disturbances: 0-None Visual Disturbances: 0-None Headache: 1-Very Mild CIWA-Ar Total Score: 10 [facility] COWS - Scale Resting Pulse: 0= [place] 80 or Below Sweatin= Chills/Flushing Restless Observation: 1= Difficult to Sit Still Pupil Size: 0= Normal to Room Light Bone or Joint Aches: 1= Mild Discomfort Runny Nose/ Eye Tearin= Nasal Congestion GI Upset > 30mins: 1= Stomach Cramp Tremor Observation of Outstretched Hands: 2= Slight Tremor Visible Yawning Observation: 1= 1-2x During Session Anxiety or Irritability: 1=Feels Anxious/Irritable Goose Flesh Skin: 0=Smooth Skin COWS Score: 9 [facility] Progress Note (SOAP) Subjective: feeling better long history of asthma nebulizer prn Objective: 01/25/19 11:35 Vital Signs Temperature 98.6 F 01/25/19 09:46 Pulse Rate 73 01/25/19 09:46 Respiratory Rate 20 01/25/19 09:46 Blood Pressure 114/68 01/25/19 09:46 O2 Sat by Pulse Oximetry (%) Laboratory Last Values WBC 4.5 K/mm3 (4.0-10.0) 01/24/19 09:15 RBC 4.40 M/mm3 (3.60-5.2) 01/24/19 09:15 Hgb 12.3 GM/dL (10.7-15.3) 01/24/19 09:15 Hct 38.0 % (32.4-45.2) 01/24/19 09:15 MCV 86.3 fl (80-96) 01/24/19 09:15 MCH 28.1 pg (25.7-33.7) 01/24/19 09:15 MCHC 32.5 g/dl (32.0-36.0) 01/24/19 09:15 RDW 17.0 % (11.6-15.6) H 01/24/19 09:15 Plt Count 219 K/MM3 (134-434) 01/24/19 09:15 MPV 8.9 fl (7.5-11.1) 01/24/19 09:15 Sodium 137 mmol/L (136-145) 01/24/19 09:15 Potassium 3.7 mmol/L (3.5-5.1) 01/24/19 09:15 Chloride 104 mmol/L (98-107) 01/24/19 09:15 Carbon Dioxide 26 mmol/L (21-32) 01/24/19 09:15 Anion Gap 7 MMOL/L (8-16) L 01/24/19 09:15 BUN 8 mg/dL (7-18) 01/24/19 09:15 Creatinine 0.7 mg/dL (0.55-1.3) 01/24/19 09:15 Creat Clearance w eGFR 85.95 (>60) 01/24/19 09:15 Random Glucose 74 mg/dL (74-106) 01/24/19 09:15 Calcium 8.5 mg/dL (8.5-10.1) 01/24/19 09:15 Total Bilirubin 0.4 mg/dL (0.2-1) 01/24/19 09:15 AST 16 U/L (15-37) 01/24/19 09:15 ALT 18 U/L (13-61) 01/24/19 09:15 Alkaline Phosphatase 55 U/L (45-117) 01/24/19 09:15 Total Protein 6.2 g/dl (6.4-8.2) L 01/24/19 09:15 Albumin 2.8 g/dl (3.4-5.0) L 01/24/19 09:15 Urine Color Yellow 01/23/19 15:45 Urine Appearance Clear 01/23/19 15:45 Urine pH 7.0 (5.0-8.0) 01/23/19 15:45 Ur Specific [place] 1.019 (1.010-1.035) 01/23/19 15:45 Urine Protein Negative (NEGATIVE) 01/23/19 15:45 Urine Glucose (UA) Negative (NEGATIVE) 01/23/19 15:45 Urine Ketones Negative (NEGATIVE) 01/23/19 15:45 Urine Blood Negative (NEGATIVE) 01/23/19 15:45 Urine Nitrite Negative (NEGATIVE) 01/23/19 15:45 Urine Bilirubin Negative (NEGATIVE) 01/23/19 15:45 Urine Urobilinogen 1.0 mg/dL (0.2-1.0) 01/23/19 15:45 Ur Leukocyte Esterase Negative (NEGATIVE) 01/23/19 15:45 POC Urine HCG, Qual Negative 01/23/19 15:04 RPR Titer Nonreactive (NONREACTIVE) 01/24/19 09:15 lab noted Assessment: 01/25/19 11:35 withdrawal sx Plan: continue detox
[2019-01-25] MEDS ORDERED: chlordiazePOXIDE HCL 10 MG CAPSULE PO PRN (17:00)
[2019-01-25] MEDS: chlordiazePOXIDE HCL 10 MG CAPSULE PO SCH ×2 (17:47→22:41)
[2019-01-25] MEDS: THIAMINE HCL 100 MG TABLET (FP) PO SCH (22:39)
[2019-01-25] MEDS: BENZTROPINE MESYLATE 1 MG TABLET (FP) PO SCH (22:39)
[2019-01-25] MEDS: risperiDONE 2 MG TABLET PO SCH (22:39)
[2019-01-25] MEDS: MONTELUKAST NA 10 MG TABLET PO SCH (22:39)
[2019-01-26] MEDS: chlordiazePOXIDE HCL 10 MG CAPSULE PO SCH ×2 (05:18→10:48)
[2019-01-26 09:07] VITALS: BP 123/80; PULSE 83; TEMP 98.9
[2019-01-26] MEDS: BUDESONIDE/FORMETEROL FUMARATE 80/4.5 mcg INHALER IH SCH (09:20)
[2019-01-26] MEDS: TIOTROPIUM BROMIDE 2.5 MCG (SPIRIVA) RESPIMAT INHALER IH SCH (09:21)
[2019-01-26] MEDS: PRENATAL VITAMINS W/ FOLIC ACID TABLET (FP) PO SCH (09:21)
[2019-01-26] MEDS: ASPIRIN 81 MG CHEWABLE TABLETS PO SCH (09:21)
[2019-01-26] MEDS: LOSARTAN 50MG/HCTZ 12.5MG 1 TAB (FP) PO SCH (09:22)
[2019-01-26] MEDS: amLODIPine BESYLATE 10 MG TABLET (FP) PO SCH (09:22)
[2019-01-26] MEDS ORDERED: METHADONE HCL 10 MG TABLET (FOR DETOX USE ONLY) PO ONE (10:00)
--- NOTE | 2019-01-26 15:02 | PN ---
S CIWA - CIWA Score Nausea/Vomitin-No Nausea/No Vomiting Muscle Tremors: None Anxiety: 2 Agitation: 1-Slight > Activity Paroxysmal Sweats: 3 Orientation: 0-Oriented Tacttile Disturbances: 1-Very Mild Itch/Numbness Auditory Disturbances: 0-None Visual Disturbances: 0-None Headache: 0-None Present CIWA-Ar Total Score: 7 [facility] COWS - Scale Resting Pulse: 1= [place] 81-100 Sweatin= Chills/Flushing Restless Observation: 1= Difficult to Sit Still Pupil Size: 0= Normal to Room Light Bone or Joint Aches: 1= Mild Discomfort Runny Nose/ Eye Tearin= None GI Upset > 30mins: 0= None Tremor Observation of Outstretched Hands: 0= None Yawning Observation: 0= None Anxiety or Irritability: 2=Irritable/Anxious Goose Flesh Skin: 0=Smooth Skin COWS Score: 6 [facility] Progress Note (SOAP) Subjective: Sweating, Anxious. Patient Reports that current Withdrawal Symptoms are Mild in Degree. Objective: PATIENT A & O X 3, OBSERVED AMBULATING ON UNIT UNASSISTED. IN NO ACUTE DISTRESS. 01/26/19 15:00 Laboratory Tests 01/23/19 01/23/19 01/24/19 15:04 15:45 09:15 WBC 4.5 RBC 4.40 Hgb 12.3 Hct 38.0 MCV 86.3 MCH 28.1 MCHC 32.5 RDW 17.0 H Plt Count 219 MPV 8.9 Sodium Potassium Chloride Carbon Dioxide Anion Gap BUN Creatinine Creat Clearance w eGFR Random Glucose Calcium Total Bilirubin AST ALT Alkaline Phosphatase Total Protein Albumin Urine Color Yellow Urine Appearance Clear Urine pH 7.0 Ur Specific [place] 1.019 Urine Protein Negative Urine Glucose (UA) Negative Urine Ketones Negative Urine Blood Negative Urine Nitrite Negative Urine Bilirubin Negative Urine Urobilinogen 1.0 Ur Leukocyte Esterase Negative POC Urine HCG, Qual Negative RPR Titer 01/24/19 01/24/19 09:15 09:15 WBC RBC Hgb Hct MCV MCH MCHC RDW Plt Count MPV Sodium 137 Potassium 3.7 Chloride 104 Carbon Dioxide 26 Anion Gap 7 L BUN 8 Creatinine 0.7 Creat Clearance w eGFR 85.95 Random Glucose 74 Calcium 8.5 Total Bilirubin 0.4 AST 16 ALT 18 Alkaline Phosphatase 55 Total Protein 6.2 L Albumin 2.8 L Urine Color Urine Appearance Urine pH Ur Specific [place] Urine Protein Urine Glucose (UA) Urine Ketones Urine Blood Urine Nitrite Urine Bilirubin Urine Urobilinogen Ur Leukocyte Esterase POC Urine HCG, Qual RPR Titer Nonreactive LABS NOTED. Assessment: 01/26/19 15:01 COMPLETION OF DETOX REGIMEN. Plan: SINCE PATIENT REPORTS THAT CURRENT WITHDRAWAL / DETOX SYMPTOMS ARE MINIMAL IN DEGREE AND THAT HE FEELS WELL OVERALL, AT PATIENTS REQUEST, HE WAS GRANTED AN EARLY DISCHARGE FROM DETOX UNIT TODAY SO THAT HE MAY PROCEED ON TO AFTERCARE PLAN - [facility] ([place], [place]).
--- NOTE | 2019-01-26 15:09 | DS ---
[facility] Detox Discharge Summary Admission Date: 01/23/19 Discharge Date: 01/26/19 - History Present History: Alcohol Dependence, Cocaine Dependence, Opioid Dependence Additional Comments: PATIENT REPORTS THAT CURRENT WITHDRAWAL / DETOX SYMPTOMS ARE MINIMAL IN DEGREE AND THAT HE FEELS WELL OVERALL AT TIME OF DISCHARGE FROM DETOX UNIT. PATIENT GOING TO [facility] ([place]) FOR AFTERCARE. PATIENT WAS DISCHARGED FROM DETOX UNIT TO BE TAKEN OVER TO REHAB UNIT IN STABLE MEDICAL CONDITION. Pertinent Past History: Depression, Nicotine Dependence, History Of Seasonal Allergies, HTN, History Of Positive PPD (Treated), Asthma, C.O.P.D., Hypercholesterolemia, Schizophrenia. - Physical Exam Results Vital Signs: Vital Signs Temperature 98.9 F 01/26/19 09:06 Pulse Rate 83 01/26/19 09:06 Respiratory Rate 18 01/26/19 09:06 Blood Pressure 123/80 01/26/19 09:06 O2 Sat by Pulse Oximetry (%) Pertinent Admission Physical Exam Findings: WITHDRAWAL SYMPTOMS. Laboratory Tests 01/23/19 01/23/19 01/24/19 15:04 15:45 09:15 WBC 4.5 RBC 4.40 Hgb 12.3 Hct 38.0 MCV 86.3 MCH 28.1 MCHC 32.5 RDW 17.0 H Plt Count 219 MPV 8.9 Sodium Potassium Chloride Carbon Dioxide Anion Gap BUN Creatinine Creat Clearance w eGFR Random Glucose Calcium Total Bilirubin AST ALT Alkaline Phosphatase Total Protein Albumin Urine Color Yellow Urine Appearance Clear Urine pH 7.0 Ur Specific [place] 1.019 Urine Protein Negative Urine Glucose (UA) Negative Urine Ketones Negative Urine Blood Negative Urine Nitrite Negative Urine Bilirubin Negative Urine Urobilinogen 1.0 Ur Leukocyte Esterase Negative POC Urine HCG, Qual Negative RPR Titer 01/24/19 01/24/19 09:15 09:15 WBC RBC Hgb Hct MCV MCH MCHC RDW Plt Count MPV Sodium 137 Potassium 3.7 Chloride 104 Carbon Dioxide 26 Anion Gap 7 L BUN 8 Creatinine 0.7 Creat Clearance w eGFR 85.95 Random Glucose 74 Calcium 8.5 Total Bilirubin 0.4 AST 16 ALT 18 Alkaline Phosphatase 55 Total Protein 6.2 L Albumin 2.8 L Urine Color Urine Appearance Urine pH Ur Specific [place] Urine Protein Urine Glucose (UA) Urine Ketones Urine Blood Urine Nitrite Urine Bilirubin Urine Urobilinogen Ur Leukocyte Esterase POC Urine HCG, Qual RPR Titer Nonreactive LABS NOTED. - Treatment Hospital Course: Detox Protocol Followed, Detoxed Safely, Responded well, Discharged Condition Good, Rehab Referral Accepted Patient has Accepted a Rehab Referral to: [facility] ([place], [place]). - Medication Discharge Medications: Ambulatory Orders Aspirin [ASA -] 81 mg PO DAILY 03/31/18 Albuterol 2.5/Ipratropium 0.5 1 neb Q6H PRN 07/25/18 Albuterol Sulfate Inhaler - [Ventolin HFA Inhaler -] 2 inh PO Q4H PRN #1 inh Amlodipine Besylate [Norvasc -] 10 mg PO DAILY #30 tablet 08/06/18 Benztropine Mesylate [Cogentin -] 0.5 mg PO HS #30 tablet 08/06/18 Losartan/Hydrochlorothiazide [Losartan-Hctz 50-12.5 mg Tab] 1 each PO DAILY #30 tablet 08/06/18 Montelukast Na [Singulair -] 10 mg PO HS #30 tablet 08/06/18 Risperidone [Risperdal -] 2 mg PO HS #30 tablet 08/06/18 Tiotropium [place] [Spiriva Respimat] 1 puff IH DAILY #1 mist.inhal 08/06/18 Budesonide/Formeterol Fumarate [SYMBICORT 80/4.5mcg -] 2 inh IH BID 01/26/19 hydrOXYzine PAMOATE [Vistaril -] 25 mg PO Q4H PRN 01/26/19 - Diagnosis (1) Alcohol dependence with uncomplicated withdrawal Current Visit: Yes Status: Acute (2) Asthma exacerbation Current Visit: Yes Status: Acute Qualifiers: Asthma severity: unspecified severity Asthma persistence: unspecified Qualified Code(s): J45.901 - Unspecified asthma with (acute) exacerbation (3) Opioid dependence with withdrawal Current Visit: Yes Status: Acute (4) Opioid use disorder Current Visit: Yes Status: Acute (5) Seasonal allergies Current Visit: Yes Status: Acute Qualifiers: Allergic rhinitis trigger: unspecified Qualified Code(s): J30.2 - Other seasonal allergic rhinitis (6) Cocaine dependence Current Visit: Yes Status: Chronic Qualifiers: Substance use status: in withdrawal Qualified Code(s): F14.23 - Cocaine dependence with withdrawal (7) Hypertension Current Visit: Yes Status: Chronic Qualifiers: Hypertension type: essential hypertension Qualified Code(s): I10 - Essential (primary) hypertension (8) Nicotine dependence Current Visit: Yes Status: Chronic Qualifiers: Nicotine product type: cigarettes Substance use status: in withdrawal Qualified Code(s): F17.213 - Nicotine dependence, cigarettes, with withdrawal (9) PPD positive, treated Current Visit: Yes Status: Resolved - AMA Did Patient Leave Against Medical Advice: No
[2019-01-26] MEDS ORDERED: chlordiazePOXIDE HCL 10 MG CAPSULE PO SCH (17:00)
[2019-01-27] MEDS ORDERED: METHADONE HCL 5 MG TABLET (FOR DETOX USE ONLY) PO ONE (06:00)
== END 2019-01-26 13:36 | disposition other institution (70) | DRG 773 ==
LOC: YASAS 12:01 → Y3N 15:42
PROVIDERS: ADMIT Surgery; ATTEND Surgery
PROC: HZ2ZZZZ Detoxification Services for Substance Abuse Treatment (ICD-10-PCS; principal; 2019-01-23)
DX: F11.23 Opioid dependence with withdrawal (principal); F10.230 Alcohol dependence with withdrawal, uncomplicated; F14.20 Cocaine dependence, uncomplicated; F17.213 Nicotine dependence, cigarettes, with withdrawal; J45.901 Unspecified asthma with (acute) exacerbation; J30.2 Other seasonal allergic rhinitis; I10 Essential (primary) hypertension; R76.11 Nonspecific reaction to tuberculin skin test without active tuberculosis; E78.00 Pure hypercholesterolemia, unspecified; Z91.14 Patient's other noncompliance with medication regimen
CPT/HCPCS: 36415; 71046-TC-FY; 80053; 81003; 81025; 85027; 86593; 94640

== ENCOUNTER 2019-01-26 11:36 | Inpatient (IN) | payer OTHER | END 2019-01-31 09:50 | disposition left against medical advice (07) | LOC: YASAS 11:36 → Y3E 11:39 ==